=== PATIENT | female | born 1940 | race Caucasian/White ===

== ENCOUNTER 2016-08-26 14:32 | Inpatient (IN) ==
[~2016-08-26 14:32] MED LIST: *HR* Etomidate 40 MG/20 ML VIAL IVP ONE; *HR* Succinylcholine 200 MG/10 ML VIAL IVP ONE
[2016-08-26] MEDS ORDERED: *HR* EPINEPHrine 1 MG/ML AMPUL ONE ×2 (15:31→15:43)
[2016-08-26] MEDS ORDERED: methylPREDNISolone 125 MG/2 ML VIAL ONE (15:35)
[2016-08-26] MEDS ORDERED: Famotidine 20 MG/2 ML VIAL IVP ONE (15:37)
[2016-08-26] MEDS ORDERED: Propofol 500 MG/50 ML INFUS..BTL ONE (15:55)
[2016-08-26] MEDS ORDERED: *HR* Vecuronium 10 MG VIAL ONE (16:14)
--- NOTE | 2016-08-26 16:40 | Emergency Department Note ---
Disposition Clinical Impression: Tongue swelling, Required emergent intubation Angioedema Qualifiers: Encounter type: initial encounter Qualified Code(s): T78.3XXA - Angioneurotic edema, initial encounter HTN (hypertension) Qualifiers: Hypertension type: essential hypertension Qualified Code(s): I10 - Essential ( primary) hypertension CHF (congestive heart failure) Qualifiers: Congestive heart failure type: systolic Congestive heart failure chronicity: chronic Qualified Code(s): I50.22 - Chronic systolic (congestive) heart failure CAD (coronary artery disease) Qualifiers: Coronary Disease-Associated Artery/Lesion type: unspecified vessel or lesion type [place] vs. transplanted heart: [place] heart Associated angina: angina presence unspecified Qualified Code(s): I25.10 - Atherosclerotic heart disease of [place] coronary artery without angina pectoris T2DM (type 2 diabetes mellitus) Qualifiers: Diabetes mellitus complication status: with unspecified complications Diabetes mellitus nursing home insulin use: without rat exterminator use Qualified Code(s): E11.8 - Type 2 diabetes mellitus with unspecified complications Disposition: Admitted As Inpatient Condition: Serious Time of Disposition: 18:32 Allergic Reaction HPI - General Chief complaint: ED Allergic Reaction Stated complaint: Tounge Swollen "Retaining Water" Time Seen by Provider: 08/26/16 16:18 Source: patient, family Mode of arrival: wheelchair Limitations: no limitations Nursing Notes Reviewed: Yes Vital Signs Reviewed: Yes - History of Present Illness HPI Narrative: Pt is a 75 yo wf, brought to the ER by her for facial and tongue swelling which began today. Pt was brought to a room from triage by WC, and I was called to bedside on pt's arrival due to tongue swelling. Upon entering the room, pt was sitting up, awake and alert, with her tongue significantly swollen and protruding from her mouth, and drooling. Pt with no resp distress, stable VS , and 100% RA pulse ox. Pt with difficulty talking due to severity of tongue swelling, and difficult to understand. reported that shortly after waking this am, pt with swelling to both upper and lower lips. Pt denies any known allergies, no prior hx of anaphylaxis/angioedema. Reviewed med list and pt not taking an diane inhibitor. 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 Pt denies any exposure to chemicals, or new exposures of any kind. Pt denies any difficulty swallowing , stating that she is drooling because her tongue is so swollen that see is unable to close her mouth. Pt with no wheezing/stridor, no rash/skin changes. No other edema noted to head/face/neck. No brawny edema to ant neck. No F/C, no N/V/D. No abd pain/cramping. No syncope/near syncope. Pt denies any other complaints on arrival. - Related Data Home Medications Medication Instructions Recorded Confirmed Albuterol Neb [Proventil Neb] 2.5 mg IH TID 03/29/15 08/26/16 Albuterol Sulfate [Albuterol 2 puff IH Q4HR PRN 03/29/15 08/26/16 Inhaler] Atorvastatin Calcium [Lipitor] 20 mg PO HS 03/29/15 08/26/16 Lisinopril [Zestril] 5 mg PO DAILY 03/29/15 08/26/16 [place]-3S/Dha/Epa/Fish Oil [Fish 1 cap PO DAILY 03/29/15 08/26/16 Oil 1,200 mg Softgel] Omeprazole [PriLOSEC] 40 mg PO DAILY 03/29/15 08/26/16 TraMADol [Ultram] 50 mg PO TID PRN 03/29/15 08/26/16 Carvedilol [Coreg] 25 mg PO BID 08/26/16 08/26/16 Docusate [Colace] 100 mg PO DAILY PRN 08/26/16 08/26/16 Ferrous Sulfate 325 mg PO BIDWM 08/26/16 08/26/16 Furosemide [Lasix] 40 mg PO DAILY 08/26/16 08/26/16 Melatonin 5 mg PO HS PRN 08/26/16 08/26/16 Nitroglycerin [Nitrostat] 0.4 mg SL Q5M PRN 08/26/16 08/26/16 Oxygen 2 l NS AD 08/26/16 08/26/16 Potassium Chloride [K-Tab ER] 20 meq PO BID 08/26/16 08/26/16 Sacubitril/Valsartan [Entresto 24 1 each PO BID 08/26/16 08/26/16 mg-26 mg Tablet] Spironolactone [Aldactone] 12.5 mg PO DAILY 08/26/16 08/26/16 Previous Rx's Medication Instructions Recorded Aspirin Enteric Coated [Aspirin EC] 81 mg PO DAILY 30 Days 03/30/15 Allergies Allergy/AdvReac Type Severity Reaction Status Date / Time DIANE Inhibitors Allergy Severe Swelling Verified 08/27/16 07:09 of Lip/Tongue/Throat ARB-Angiotensin Receptor Allergy Severe Swelling Verified 08/27/16 07:09 Antagonist of Lip/Tongue/Throat plastic tape Allergy See Uncoded 08/26/16 15:23 Comments All systems ED: reviewed and negative except as stated. Constitutional: Reports: as per HPI. Denies: fever, chills, weakness Eyes: Reports: as per HPI. Denies: vision change ENT ED: Reports: as per HPI, other (Lip and tongue edema and swelling). Denies : ear pain, throat pain, dental pain, congestion Cardiovascular: Reports: as per HPI. Denies: chest pain, palpitations, dyspnea on exertion, edema, syncope Respiratory: Reports: as per HPI, dyspnea. Denies: cough, wheezes, stridor, sputum production Gastrointestinal: Reports: as per HPI. Denies: abdominal pain, nausea, vomiting , diarrhea Genitourinary: Reports: as per HPI. Denies: urgency, dysuria Musculoskeletal: Reports: as per HPI. Denies: back pain, neck pain Integumentary: Reports: as per HPI. Denies: rash, pruritus Neurological: Reports: as per HPI. Denies: headache, weakness, numbness, paresthesias, vertigo Psychiatric: Reports: as per HPI. Denies: anxiety, depression Endocrine: Reports: as per HPI. Denies: fatigue Hematological/Lymphatic: Reports: as per HPI. Denies: easy bleeding, easy bruising Allergic/Immunologic: Reports: as per HPI, facial swelling. Denies: urticaria, itchy eyes Past Medical History - Past Medical History Medical history: Reports: arthritis, cancer, CHF, COPD, CVA, diabetes, hyperlipidemia, hypertension, myocardial infarction, other Surgical history: Reports: appendectomy, cholecystectomy Psychiatric history: Reports: depression JOIST SETTER history: Reports: no JOIST SETTER history - Social History Smoking Status: Never smoker Smokeless Tobacco Status: No Alcohol use: Reports: none Drug use: Reports: none Physical Exam - General Limitations: no limitations General appearance: alert, in distress, other (Patient arrives from triage in a wheelchair with tongue protruding from mouth due to significant swelling and drooling) - Head Head exam: atraumatic, normocephalic - Eye Eye exam: Present: normal appearance, PERRL, EOMI. Absent: conjunctival injection, periorbital swelling - ENT ENT exam: mucous membranes moist, TM's normal bilaterally, normal external ear exam (Patient with), other (Patient with significant tongue swelling and significant edema to the floor of the mouth, very thickened speech due to swelling of tongue and patient drooling having trouble controlling secretions. No other facial edema is appreciated no swelling of lips, no periorbital edema no facial swelling; cannot visualize uvula on exam and appears nonedematous, no stridor) - Neck Neck exam: Present: normal inspection, trachea midline, other (No brawny edema appreciated). Absent: tenderness, lymphadenopathy - Chest Chest inspection: Present: normal inspection, symmetric chest wall rise. Absent : tenderness, rash - Respiratory Respiratory exam: Present: normal lung sounds bilaterally. Absent: respiratory distress, wheezes, stridor, accessory muscle use - Cardiovascular Cardiovascular exam: Present: regular rate, normal rhythm, normal heart sounds - Abdominal Exam Abdominal exam: Present: soft, Non-Tender, normal bowel sounds. Absent: distention - Rectal Exam Rectal exam: Present: deferred - Extremities Exam Extremities exam: Present: normal inspection, full ROM, normal capillary refill , pedal edema. Absent: tenderness - Back Exam Back exam: Present: normal inspection, full ROM. Absent: tenderness - Neurological Exam Neurological exam: Present: alert, oriented X3, CN II-XII intact, reflexes normal. Absent: motor sensory deficit - Psychiatric Psychiatric exam: Present: normal affect, normal mood - Skin Skin exam: Present: warm, dry. Absent: rash, diaphoresis, erythema, pallor Course Course Narrative: I, Primo Wynn, did not obtain H&P from patient. I performed intubation and OG placement. See procedure section for details. Shortly after arrival and initial assessment, I decided that we would need to intubate the patient to protect her airway. Pt was placed on monitor, pulse ox, supple O2 started. 2 lg bore PIV's established. We quickly set up for intubation , with glidescope at bedside, cric kit setup for backup. We notified anesthesia , and requested their backup. Notified ENT, and consulted them to see pt. Spoke in detail with pt and about urgent need for intubation. Both agreed with the procedure for airway protection. was escorted to family room for intubation. Prior to intubation, pt given subcut epi x 4 q 5 min, IV solumedrol, benadryl, pepcid. Pt with no improvement, actually gradually worsening tongue edema. Anesthesia at bedside for intubation. Pt pre-oxygenated, performed rapid sequence intubation using etomidate and succinylcholine. Achieved adequate sedation. Using the glidescope, I personally supervised Dr. Wynn, ER resident, perform orotracheal intubation without difficulty. No complications during procedure. Tube position confirmed with ETCO2, fogging of tube, and PCXR. Clear breath sounds bilaterally following intubation. OG tube placed. Pt remained hemodynamically stable throughout intubation and following intubation. Propofol was ordered for sedation. Labs drawn and sent. EKG obtained. IV fluids running. brought back to be with in room. Spoke to ICU, who accepted pt for admission. Discussed case with attending. Initial vent settings in ED, ABG ordered. ICU attending, while assessing pt in ED, adjusted vent settings from ABG results. Pt transported to ICU for ongoing care and mgmt. Vital Signs Temperature 97.5 F L 08/26/16 15:18 Pulse Rate 68 08/26/16 15:18 Respiratory Rate 18 08/26/16 15:18 Blood Pressure 116/62 08/26/16 15:18 O2 Sat by Pulse Oximetry 98 08/26/16 15:18 Temperature 98.5 F 08/28/16 12:13 Pulse Rate 60 08/28/16 14:00 Respiratory Rate 18 08/28/16 14:00 Blood Pressure 146/73 08/28/16 14:00 O2 Sat by Pulse Oximetry 98 08/28/16 14:00 Oxygen Delivery Oxygen Delivery Ventilator Procedures - Intubation Time out performed: Yes sedative: Etomidate Mg Given: 30 paralytic: Succinylcholine Mg Given: 100 Laryngoscope: fiber optic video scope ET Tube Size: 7 ET Tube Uncuffed: No Tube Secured Depth (cm): 20 (cm ) Tube Secured Location: lips Tube Placement Confirmation: visualized tube passing through cords Patient Tolerated Procedure: well Additional Comments: Patient had mildly decreased breath sounds on left compared to right. CXR obtained and showed intubation of right mainstem. Tube was pulled back to 19cm at the lip and CXR obtained again and showed proper placement above gianluca, equal aeration bilaterally, o2 sat 100%. - Primo Wynn. Allergic Reaction - [facility] Narrative Medical decision making narrative: Pt is a 75 yo wf, brought by to ED for tongue swelling. Due to severity of edema, and concern for airway compromise, pt was electively intubated in ED shortly after arrival to secure airway. Pt consented to procedure. Procedure performed without complication. Pt hemodynamically stable throughout ED course, and transported to ICU pending remaining lab results. D/W ICU attending, consulted ENT from ED. Consulted anesthesia for backup during intubation. Pt with angioedema of unknown cause, with no prior hx of allergic reactions. - Differential Diagnosis Differential Diagnosis: Likely: allergic reaction, angioedema - Medical Records Medical records reviewed: Yes I reviewed the patient's medical records. - Lab Data Lab results reviewed: Yes I reviewed the patient's lab results. Lab results narrative: Not all labs resulted before pt transported to ICU. Result diagrams: 08/28/16 03:15 08/28/16 03:15 Lab Results 08/26/16 08/26/16 08/26/16 Range/Units 16:45 16:45 16:45 WBC 7.7 (4.3-11.1) K/mcL RBC 3.73 L (3.82-4.97) M/mcL Hgb 10.4 L (11.5-15.4) g/dL Hct 32.1 L (35.3-44.9) % MCV 86.1 (83.0-100.0) fL MCH 27.9 L (28.0-33.3) pg MCHC 32.4 (31.6-35.5) g/dL RDW 19.1 H (11.5-14.5) % Plt Count 320 (140-400) K/mcL MPV 9.6 (9.4-12.4) fL Immature Gran % 0.3 (0-4) % Seg Neutrophils % 55.1 % Lymphocytes % 32.1 % Monocytes % 7.7 % Eosinophils % 4.0 % Basophils % 0.8 % Neutrophils # 4.2 (1.6-8.9) K/mcL Lymphocytes # 2.5 (0.6-4.6) K/mcL Monocytes # 0.6 (0.0-1.3) K/mcL Eosinophils # 0.3 (0.0-0.6) K/mcL Basophils # 0.1 (0.0-0.2) K/mcL PT 12.7 H (9.4-12.1) Seconds INR 1.2 Sodium 140 (136-145) mEq/L Potassium 3.5 (3.5-4.5) mEq/L Chloride 109 (98-109) mEq/L Carbon Dioxide 21 (19-29) mEq/L BUN 30 H (7-20) mg/dL Creatinine 1.08 (0.57-1.11) mg/dL Est GFR ( Amer) 60 (> 60) Est GFR (Non-Af Amer) 49 L (> 60) BUN/Creatinine Ratio 28 H (6-26) Glucose 152 H (70-99) mg/dL Calculated Osmolality 299 (280-300) Calcium 9.3 (8.6-10.8) mg/dL Magnesium 1.7 (1.6-2.6) mg/dL Total Bilirubin 0.6 (0.2-1.2) mg/dL AST 20 (5-34) Units/L ALT 13 (0-55) Units/L Alkaline Phosphatase 80 (38-126) Units/L Troponin I (0-0.03) ng/mL Serum Total Protein 7.5 (6.0-8.3) g/dL Albumin 3.5 (3.5-5.0) g/dL Globulin 4.0 H (2.4-3.5) g/dL Albumin/Globulin Ratio 0.9 L (1.1-2.2) Urine Color (Yellow) Urine Clarity (Clear) Urine pH (5.0-8.0) pH Units Ur Specific [place] (1.010-1.025) Urine Protein (Neg-Trace) mg/dL Urine Glucose (UA) (Normal) mg/dL Urine Ketones (Negative) mg/dL Urine Blood (Negative) Urine Nitrite (Negative) Urine Bilirubin (Negative) Urine Urobilinogen (Normal) mg/dL Ur Leukocyte Esterase (Negative) 08/26/16 08/26/16 Range/Units 16:45 16:50 WBC (4.3-11.1) K/mcL RBC (3.82-4.97) M/mcL Hgb (11.5-15.4) g/dL Hct (35.3-44.9) % MCV (83.0-100.0) fL MCH (28.0-33.3) pg MCHC (31.6-35.5) g/dL RDW (11.5-14.5) % Plt Count (140-400) K/mcL MPV (9.4-12.4) fL Immature Gran % (0-4) % Seg Neutrophils % % Lymphocytes % % Monocytes % % Eosinophils % % Basophils % % Neutrophils # (1.6-8.9) K/mcL Lymphocytes # (0.6-4.6) K/mcL Monocytes # (0.0-1.3) K/mcL Eosinophils # (0.0-0.6) K/mcL Basophils # (0.0-0.2) K/mcL PT (9.4-12.1) Seconds INR Sodium (136-145) mEq/L Potassium (3.5-4.5) mEq/L Chloride (98-109) mEq/L Carbon Dioxide (19-29) mEq/L BUN (7-20) mg/dL Creatinine (0.57-1.11) mg/dL Est GFR ( Amer) (> 60) Est GFR (Non-Af Amer) (> 60) BUN/Creatinine Ratio (6-26) Glucose (70-99) mg/dL Calculated Osmolality (280-300) Calcium (8.6-10.8) mg/dL Magnesium (1.6-2.6) mg/dL Total Bilirubin (0.2-1.2) mg/dL AST (5-34) Units/L ALT (0-55) Units/L Alkaline Phosphatase (38-126) Units/L Troponin I 0.02 (0-0.03) ng/mL Serum Total Protein (6.0-8.3) g/dL Albumin (3.5-5.0) g/dL Globulin (2.4-3.5) g/dL Albumin/Globulin Ratio (1.1-2.2) Urine Color Yellow (Yellow) Urine Clarity Clear (Clear) Urine pH 5.5 (5.0-8.0) pH Units Ur Specific [place] 1.010 (1.010-1.025) Urine Protein Negative (Neg-Trace) mg/dL Urine Glucose (UA) Normal (Normal) mg/dL Urine Ketones Negative (Negative) mg/dL Urine Blood Negative (Negative) Urine Nitrite Negative (Negative) Urine Bilirubin Negative (Negative) Urine Urobilinogen Normal (Normal) mg/dL Ur Leukocyte Esterase Negative (Negative) - Radiology Data Radiology results reviewed: Yes I reviewed the patient's radiology results. ETT placement in good position. Critical Care Time Critical Care Time: Yes Total Critical Care Time: 60 Attestation: The high probability of a clinically significant, sudden or life threatening deterioration of the [resp] system(s) required my full and direct attention, intervention and personal management. The aggregate critical care time was [60] minutes. This time is in addition to time spent performing reported procedures but includes the following: [X] Data Review and interpretation [X] Patient assessment and monitoring of vital signs [X] Documentation [X] Medication orders and management Attestation Statement - Attestation Attestation: I personally interviewed and examined this patient and my medical decision- making was reviewed with the ED Resident Physician, Dr. Wynn. I agree with the documented findings, disposition and treatment plan as described except to the extent set forth below. I personally supervised Dr. Wynn perform the RSI of pt. I otherwise managed and cared for pt as documented.
[2016-08-26] MEDS ORDERED: *HR* EPINEPHrine 0.3 MG/0.3 ML (PEN) SQ ONE (16:54)
[2016-08-26 16:55] LABS: Basophils # 0.1 K/mcL (0.0-0.2); Basophils % 0.8 %; Eosinophils # 0.3 K/mcL (0.0-0.6); Hematocrit 32.1 % (35.3-44.9); Hemoglobin 10.4 g/dL (11.5-15.4); Immature Granulocytes % 0.3 % (0-4); Lymphocytes # 2.5 K/mcL (0.6-4.6); Lymphocytes % 32.1 %; Mean Corpuscular HGB Conc 32.4 g/dL (31.6-35.5); Mean Corpuscular Hemoglobin 27.9 pg (28.0-33.3); Mean Corpuscular Volume 86.1 fL (83.0-100.0); Mean Platelet Volume 9.6 fL (9.4-12.4); Monocytes # 0.6 K/mcL (0.0-1.3); Monocytes % 7.7 %; Neutrophils # 4.2 K/mcL (1.6-8.9); Platelet Count 320 K/mcL (140-400); Red Blood Count 3.73 M/mcL (3.82-4.97); Red Cell Distribution Width 19.1 % (11.5-14.5); Segmented Neutrophils % 55.1 %
[2016-08-26] MEDS ORDERED: *HR* Vecuronium 10 MG VIAL IVP ONE (16:56)
[2016-08-26] MEDS ORDERED: methylPREDNISolone 125 MG/2 ML VIAL IVP ONE (16:56)
[2016-08-26 17:02] LABS: INR 1.2; Prothrombin Time 12.7 Seconds (9.4-12.1)
[2016-08-26 17:04] LABS: Bilirubin,Urine Negative (Negative); Blood,Urine Negative (Negative); Clarity,Urine Clear (Clear); Color,Urine Yellow (Yellow); Glucose,Urine (UA) Normal (Normal); Ketones,Urine Negative (Negative); Leukocyte Esterase,Urine Negative (Negative); Nitrite,Urine Negative (Negative); PH,Urine 5.5 pH Units (5.0-8.0); Protein,Urine Negative (Neg-Trace); Urobilinogen,Urine Normal (Normal)
[2016-08-26 17:11] LABS: Albumin 3.5 g/dL (3.5-5.0); Albumin/Globulin Ratio 0.9 (1.1-2.2); Bilirubin,Total 0.6 mg/dL (0.2-1.2); Calcium 9.3 mg/dL (8.6-10.8); Potassium 3.5 mEq/L (3.5-4.5); Total Protein 7.5 g/dL (6.0-8.3)
[2016-08-26] MEDS ORDERED: Lacri-Lube 3.5 GM TUBE BOTH EYES PRN (17:32)
[2016-08-26] MEDS ORDERED: Calcium Gluconate 1,000 MG in D5% in Water 100 ML IVPB PRN (17:32)
--- NOTE | 2016-08-26 17:32 | Pulmonology History & Physical ---
<Sherry Pardo - Last Filed: 08/26/16 19:03> Date of Encounter: 08/26/16 Time of Encounter: 17:32 Assessment and Plan (1) Angioedema Current visit: Yes Status: Acute Patient presented to the ED with acute swelling of tongue, lips and mouth. She was intubated in the ED for airway protection. On review of medications, patient has been taking either lisinopril or Entresto for blood pressure control. Patient has no personal history of allergeis or angioedema. She is now intubated and sedated. ENT has been consulted and allergy will be called in the morning. - NO DIANE INHIBITOR OR ARB EVER AGAIN - Keep patient sedated and restrained to prevent displacement of the tube - Will send labs incluidng C1q, C1 esterase and C4 complement - Solu-medrol 80mg every 8 hours - Benadryl BID - Pepcid daily - Transfuse 2 units FFP now - Consult placed to ENT - Consult placed to Allergy/Immunology Qualifiers: Encounter type: initial encounter Qualified Code(s): T78.3XXA - Angioneurotic edema, initial encounter (2) Sick sinus syndrome Current visit: Yes Status: Acute Patient with history of sick sinus syndrome with BV-ICD in place for CHF. Heart rate appropriate thus far. - partition notcher (3) HTN (hypertension) Current visit: Yes Status: Acute History of HTN on lisinopril/Entresto and carvedilol. - Continue home dose caredilol Qualifiers: Hypertension type: essential hypertension Qualified Code(s): I10 - Essential (primary) hypertension (4) CAD (coronary artery disease) Current visit: Yes Status: Acute History of CAD s/p CABG - EKG and monitor troponins - though troponin is expected to be elevated due to epinephrine. - Cardiac monitoring Qualifiers: Coronary Disease-Associated Artery/Lesion type: unspecified vessel or lesion type [place] vs. transplanted heart: [place] heart Associated angina: angina presence unspecified Qualified Code(s): I25.10 - Atherosclerotic heart disease of [place] coronary artery without angina pectoris (5) CHF (congestive heart failure) Current visit: Yes Status: Acute Reported history of CHF with BV-ICD in place - Last ECHO 04/27/2015 - EF 35-40%, atypical septal motion, indeterminate diastolic function, mild TR, no pulmonary hypertension - Continue home medications and monitor fluid status Qualifiers: Congestive heart failure type: systolic Congestive heart failure chronicity : chronic Qualified Code(s): I50.22 - Chronic systolic (congestive) heart failure (6) T2DM (type 2 diabetes mellitus) Current visit: Yes Status: Acute History of T2DM not on any home medications. - Monitor glucose - Sliding scale insulin Qualifiers: Diabetes mellitus complication status: with unspecified complications Diabetes mellitus terminal operations supervisor insulin use: without terminal operations supervisor use Qualified Code( s): E11.8 - Type 2 diabetes mellitus with unspecified complications (7) DVT prophylaxis Current visit: Yes Status: Acute Heparin Neuro: Intubated and sedated with propofol and fentanyl. Keep sedated and restrained to prevent displacement of tube. Pulm: Intubated due to airway obsturction. Vent: VC+ TV400, R16, FiO2 50% and PEEP of 5.0 Cards: Hx of CAD with CABG, CHF and sick sinus syndrome. Continue home meds EXCEPT LISINOPRIL OR ENTRESTO. Cardiac monitoring FEN-GI: OG tube in place. NPO except meds down tube. Fluids at 40mls/hr. Protonix ppx Renal: Isaac in place. Monitor UOP ID: No acute concerns at this time Heme/Onc: Heparin for DVT ppx Endo: Monitor glucose. SSI Immuno: Severe angioedema. Transfuse 2 units FFP. Steroids, Benadryl, Pepcid. Consult to ENT and Allergy/Immunology. Follow labs- C1q, C4, C1 esterase. Keep patient intubated and sedated Skin: skin care per ICU protocol Code: Full code History of Present Illness Chief complaint: Angioedema HPI: Ms. Pardo is a 75 year old female with PMH of sick sinus syndrome s/p AICD placement, GERD, HTN, CAD s/p CAGB, CVA, CHF, and T2DM presented to the EM with lip and tongue swelling. Per family, this morning patient woke up with upper and lower lip swelling. initially thought patient was having a stroke before they noticed the swelling because she was slurring words. Patient took some Benadryl but noticed that the swelling kept getting worse. At lunchtime she noticed that the swelling in her lips was worse but her tongue was starting to swell. By the time she arrived in the ED, patient was unable to talk due to the swelling and was drooling. Patient was intubated emergently in the ED. Per ED attending, the swelling was primarily the floor of her mouth and her tongue but her posterior pharynx was not swollen. Patient received 4mg of subcutaneous epinephrine, 125mg solu-medrol, 20mg pepcid and 50mg Benadryl. Despite this, patient's tongue continued to swell and she was admitted to the ICU. Per patient , there were no other symptoms. He denies ALAN, difficulty breathing, nausea/vomiting, or any rash. Patient was taking lisinopril and was recently switched to entresto. However, patient was having difficulty affording the entresto, so while trying to work out payment she was given extra lisinopril to take. is not sure if she took lisinopril or the Entresto this morning. On exam, patient is intubated and sedated with propofol. She has significant tongue swelling cause marked protrusion. Lungs are clear to auscultation. Remainder of physical exam benign. Past Med Surg Social Fam HX - Past Medical History Medical history: arthritis, cancer, CHF, COPD, CVA, diabetes, hyperlipidemia, hypertension, myocardial infarction, other Psychiatric history: depression - Past Surgical History Surgical History: appendectomy, cholecystectomy - Social History Smoking Status: Never smoker Smokeless Tobacco Status: No Alcohol use: none Drug use: none Medications and Allergies Albuterol Neb [Proventil Neb] 2.5 mg IH TID 03/29/15 [History] Albuterol Sulfate [Albuterol Inhaler] 2 puff IH Q4HR PRN 03/29/15 [History] Atorvastatin Calcium [Lipitor] 20 mg PO HS 03/29/15 [History] Lisinopril [Zestril] 5 mg PO DAILY 03/29/15 [History] [place]-3S/Dha/Epa/Fish Oil [Fish Oil 1,200 mg Softgel] 1 cap PO DAILY 03/29/15 [ History] Omeprazole [PriLOSEC] 40 mg PO DAILY 03/29/15 [History] TraMADol [Ultram] 50 mg PO TID PRN 03/29/15 [History] Aspirin Enteric Coated [Aspirin EC] 81 mg PO DAILY 30 Days 03/30/15 [Rx] Carvedilol [Coreg] 25 mg PO BID 08/26/16 [History] Docusate [Colace] 100 mg PO DAILY PRN 08/26/16 [History] Ferrous Sulfate 325 mg PO BIDWM 08/26/16 [History] Furosemide [Lasix] 40 mg PO DAILY 08/26/16 [History] Melatonin 5 mg PO HS PRN 08/26/16 [History] Nitroglycerin [Nitrostat] 0.4 mg SL Q5M PRN 08/26/16 [History] Oxygen 2 l NS AD 08/26/16 [History] Potassium Chloride [K-Tab ER] 20 meq PO BID 08/26/16 [History] Sacubitril/Valsartan [Entresto 24 mg-26 mg Tablet] 1 each PO BID 08/26/16 [ History] Spironolactone [Aldactone] 12.5 mg PO DAILY 08/26/16 [History] Allergies plastic tape Allergy (Uncoded 08/26/16 15:23) See Comments ROS unobtainable: due to endotracheal tube, other (limited ROS from family) All Systems: A 10-system review of systems was performed and is negative for pertinent findings except as documented above in the HPI. - EENT Nose, mouth and throat: tongue swelling - Cardiovascular Cardiovascular: no chest pain - Respiratory Respiratory: no cough, no dyspnea - Gastrointestinal Gastrointestinal: no nausea, no vomiting - Integumentary Integumentary: no rash - Neurological Neurological: abnormal speech - Allergic/Immunologic Allergic/Immunologic: tongue swelling, lip swelling Physical Examination Vital Signs: Vital Signs, Last 4 Hours Temp Pulse Resp BP Pulse Ox 08/26/16 16:50 74 12 144/75 100 08/26/16 16:00 70 14 163/120 99 08/26/16 15:18 97.5 F L 68 18 116/62 98 General appearance: other (Intubated and sedated) ENT: other (marked macroglossia, ET tube in place) Effort: normal Auscultation: bilateral: clear Gastrointestinal: soft, non-tender, non-distended Integumentary: other (Marked angioedema) Extremities: no cyanosis, no edema unable to assess due to mental status Results - Laboratory Findings CBC and BMP: 08/26/16 16:45 08/26/16 16:45 PT/INR, D-dimer PT 12.7 Seconds (9.4-12.1) H 08/26/16 16:45 Abnormal lab findings: Abnormal lab results RBC 3.73 M/mcL (3.82-4.97) L 08/26/16 16:45 Hgb 10.4 g/dL (11.5-15.4) L 08/26/16 16:45 Hct 32.1 % (35.3-44.9) L 08/26/16 16:45 MCH 27.9 pg (28.0-33.3) L 08/26/16 16:45 RDW 19.1 % (11.5-14.5) H 08/26/16 16:45 PT 12.7 Seconds (9.4-12.1) H 08/26/16 16:45 BUN 30 mg/dL (7-20) H 08/26/16 16:45 Est GFR (Non-Af Amer) 49 (> 60) L 08/26/16 16:45 BUN/Creatinine Ratio 28 (6-26) H 08/26/16 16:45 Glucose 152 mg/dL (70-99) H 08/26/16 16:45 Globulin 4.0 g/dL (2.4-3.5) H 08/26/16 16:45 Albumin/Globulin Ratio 0.9 (1.1-2.2) L 08/26/16 16:45 <Matt Saucedo W - Last Filed: 08/26/16 19:21> Date of Encounter: 08/26/16 History of Present Illness HPI: Ms. Pardo is a 75 year old female All Systems: A 10-system review of systems was performed and is negative for pertinent findings except as documented above in the HPI. Physical Examination Vital Signs: Vital Signs, Last 4 Hours Temp Pulse Resp BP Pulse Ox 08/26/16 18:38 97.7 F 60 16 127/78 08/26/16 18:22 97.7 F 60 20 127/78 08/26/16 18:21 60 08/26/16 17:55 17 100 08/26/16 17:40 12 166/88 Results - Laboratory Findings CBC and BMP: 08/26/16 16:45 08/26/16 16:45 ABG ABG pH 7.37 pH Units (7.32-7.45) 08/26/16 18:15 ABG pCO2 39 mmHg (35-45) 08/26/16 18:15 ABG pO2 190 mmHg (85-104) H 08/26/16 18:15 ABG O2 Saturation 100 % (95-98) H 08/26/16 18:15 PT/INR, D-dimer PT 12.7 Seconds (9.4-12.1) H 08/26/16 16:45 Abnormal lab findings: Abnormal lab results RBC 3.73 M/mcL (3.82-4.97) L 08/26/16 16:45 Hgb 10.4 g/dL (11.5-15.4) L 08/26/16 16:45 Hct 32.1 % (35.3-44.9) L 08/26/16 16:45 MCH 27.9 pg (28.0-33.3) L 08/26/16 16:45 RDW 19.1 % (11.5-14.5) H 08/26/16 16:45 PT 12.7 Seconds (9.4-12.1) H 08/26/16 16:45 ABG pO2 190 mmHg (85-104) H 08/26/16 18:15 ABG O2 Saturation 100 % (95-98) H 08/26/16 18:15 ABG Base Excess -2.5 mEq/L (-2.0 to 3.0) L 08/26/16 18:15 BUN 30 mg/dL (7-20) H 08/26/16 16:45 Est GFR (Non-Af Amer) 49 (> 60) L 08/26/16 16:45 BUN/Creatinine Ratio 28 (6-26) H 08/26/16 16:45 Glucose 152 mg/dL (70-99) H 08/26/16 16:45 POC Glucose 153 (58-89) H 08/26/16 17:55 Globulin 4.0 g/dL (2.4-3.5) H 08/26/16 16:45 Albumin/Globulin Ratio 0.9 (1.1-2.2) L 08/26/16 16:45 - Attending Attestation I examined this patient and my medical decision-making was reviewed with the ROAD GRADER/PA/Advanced Practice Nurse/Resident Physician. I agree with the documented findings, disposition and treatment plan as described except to the extent set forth below. Patient seen and examined in ED with Housestaff. Neuro/Psych: Deeply sedated on vent. Prior to intubation sedation per report no focal deficit. Will cont deep sedation overnight to avoid self-extubation goal SKAINA 4-5 cont propfol add fentanyl for analgesia. Resp: Intubated for airway mngt. acceptable oxygenation on minimal vent support using approx TV 8cc/kg IBW. History of COPD schedule duonebs every 6 hours. CXR without acute process. Cardio: No evidence of shock. History of HFrEF. cont BB at present. ECG without STEMI. f/u Troponin. GI: Gi prophylaxis given. NPO for now Renal: NO Kris isaac placed cont to monitor output ID: Dorman cultured but highly doubt sepsis. No inidication for empiric antimicrobials HEME/ONC: DVT prophylaxis given. H/H stable no evidence of coagulopathy SKIN: Skin Care per ICU protocol to prevent ulcers Allergy/Immunology: Acute angioedema without urticaria suspect ACEi induced. HOlding med now. H1/H2 blockers given. Cont IV steroids. Stop epinephrine injections. 2U FFP ordered. complement panel ordered. Allergy consult pending availability. ED per conversation spoke to ENT no further recs for airway mngt now intubated. Code: Full; NOK - updated at bedside.
[2016-08-26] MEDS ORDERED: NON-FORMULARY MEDICATION 1 EACH EACH (Oxygen [Oxygen] 2 L) NS SCH (17:45)
[2016-08-26] MEDS ORDERED: D5% in Water 1,000 ML IVC PRN (17:51)
[2016-08-26] MEDS ORDERED: *HR* Dextrose 50 % in Water (Syg) 50 ML SYRINGE IVP PRN (17:51)
[2016-08-26] MEDS ORDERED: Dextrose Gel 15 GM PO PRN ×2 (17:51)
[2016-08-26] MEDS ORDERED: Famotidine 20 MG/2 ML VIAL IVP SCH (18:00)
[2016-08-26] MEDS: FentaNYL (PF) 1,000 MCG in 0.9 % Sodium Chloride 80 ML IVC SCH (18:18)
[2016-08-26 18:30] LABS: ABG Base Excess -2.5 mEq/L (-2.0 to 3.0); ABG HCO3 22.5 mEQ/L (21-27); ABG Oxygen Saturation 100 % (95-98); ABG PCO2 39 mmHg (35-45); ABG PH 7.37 pH Units (7.32-7.45); ABG PO2 190 mmHg (85-104); ABG TCO2 23.7 mEq/L (20-26)
[2016-08-26 18:31] LABS: Blood Gas FiO2 55 %
[2016-08-26 18:39] LABS: Magnesium 1.7 mg/dL (1.6-2.6)
[2016-08-26] MEDS ORDERED: 0.9 % Sodium Chloride 250 ML ONE (20:24)
[2016-08-26] MEDS: 0.9 % Sodium Chloride 1,000 ML IVC SCH (20:27)
[2016-08-26] MEDS: Magnesium Sulfate 2 GM in D5% in Water 100 ML IVPB PRN (20:34)
[2016-08-26] MEDS: Chlorhexidine Rinse 15 ML MOUTHWASH MM SCH (20:38)
[2016-08-26] MEDS: Lacri-Lube 3.5 GM TUBE BOTH EYES SCH (20:43)
[2016-08-26] MEDS ORDERED: 0.9 % Sodium Chloride 1,000 ML IVC ONE ×3 (21:18→23:26)
[2016-08-27] MEDS ORDERED: Piperacillin/Tazobactam 3.375 GM in D5% in Water (Mini-Bag+) 100 ML IVPB ONE (00:01)
[2016-08-27] MEDS ORDERED: Vancomycin 1,000 MG in D5% in Water 250 ML IVPB ONE (00:01)
--- NOTE | 2016-08-27 00:48 | Procedure Note ---
Date of procedure: 08/27/16 Pre-op diagnosis: Hypotension Post-op diagnosis: same Procedure: Verbal consent was obtained from the . The procedure was considered emergent. The right inguinal area was surveyed using ultrasound and the right femoral vein was deemed to be suitable target. Patient was cleaned and draped in the usual sterile fashion. Using ultrasound guidance the introducer needle was introduced in the right femoral vein. Dark red blood was returned. The guidewire was passed into the syringe needle apparatus and into the femoral vein. The syringe and needle removed. Guidewire placement was confirmed to be in the femoral vein using ultrasound. A carolann the skin was made and the dilator was passed over the guidewire and the skin and soft tissues were dilated. The dilator was then removed and the catheter was passed over the guidewire and advanced into the femoral vein. The guidewire was then removed intact. All 3 ports were tested and deemed to draw blood and flushed easily. The catheter was sutured in place. Biopatch and sterile dressing were applied. The right femoral vein and iliac veins with an surveyed again post procedure with the ultrasound and the catheter was seen within the vein. The patient tolerated the procedure well. There are no immediate complications. Dr. Garcia supervised the procedure. Anesthesia: PRITESHA, local Surgeon: Espinoza Bolaños Estimated blood loss (cc): 5 IV fluids (cc): 15 Pathology: none sent Condition: critical Disposition: ICU
[2016-08-27] MEDS: FentaNYL (PF) 1,000 MCG in 0.9 % Sodium Chloride 80 ML IVC SCH ×2 (00:58→18:31)
[2016-08-27] MEDS: methylPREDNISolone 125 MG/2 ML VIAL IVP SCH ×3 (00:59→16:18)
[2016-08-27] MEDS: Lacri-Lube 3.5 GM TUBE BOTH EYES SCH ×6 (01:00→20:05)
[2016-08-27] MEDS: Saliva Stimulant 100ml BOTTLE PO PRN ×5 (01:01→20:25)
[2016-08-27] MEDS: Insulin LISPRO 300 UNITS/3 ML VIAL SQ SCH ×5 (01:09→18:32)
[2016-08-27] MEDS: 0.9 % Sodium Chloride 1,000 ML IVC SCH (02:25)
[2016-08-27] MEDS: EPINEPHrine 1 MG in D5% in Water 250 ML IVC SCH ×2 (02:26→04:10)
[2016-08-27 04:39] LABS: Basophils % 0.2 %; Eosinophils % 0.1 %; Hematocrit 33.6 % (35.3-44.9); Hemoglobin 10.7 g/dL (11.5-15.4); Immature Granulocytes % 0.5 % (0-4); Lymphocytes # 1.4 K/mcL (0.6-4.6); Lymphocytes % 12.1 %; Mean Corpuscular HGB Conc 31.8 g/dL (31.6-35.5); Mean Corpuscular Hemoglobin 28.2 pg (28.0-33.3); Mean Corpuscular Volume 88.4 fL (83.0-100.0); Mean Platelet Volume 9.9 fL (9.4-12.4); Monocytes # 0.2 K/mcL (0.0-1.3); Monocytes % 1.4 %; Neutrophils # 9.7 K/mcL (1.6-8.9); Platelet Count 363 K/mcL (140-400); Red Cell Distribution Width 19.4 % (11.5-14.5); Segmented Neutrophils % 85.7 %
[2016-08-27 04:55] LABS: Albumin 2.9 g/dL (3.5-5.0); Albumin/Globulin Ratio 0.8 (1.1-2.2); Bilirubin,Total 0.5 mg/dL (0.2-1.2); Calcium 8.5 mg/dL (8.6-10.8); Globulin 3.5 g/dL (2.4-3.5); Potassium 4.4 mEq/L (3.5-4.5); Total Protein 6.4 g/dL (6.0-8.3)
--- NOTE | 2016-08-27 05:32 | Event Note ---
Date of Encounter: 08/27/16 Time of Encounter: 00:00 I was alerted by the nurse due to the patient's low blood pressure. When I examined the patient her blood pressure is running low with maps in the 50s. Patient was on propofol and fentanyl for sedation. The propofol was weaned down and eventually turned off and transition to Versed. The patient was also given a total of 2 L bolus. The patient's blood pressure responded for a short amount of time decreased again. There is undetermined at the patient needed vasopressor support to support her blood pressure. A right femoral central line was placed, please see procedure note for further details. Epinephrine was initiated given concern for anaphylactic shock. The patient responded well to epinephrine.
[2016-08-27] MEDS: *HR* Heparin 5,000 UNIT/ML VIAL SQ SCH ×2 (05:45→18:30)
[2016-08-27] MEDS ORDERED: Famotidine 20 MG/2 ML VIAL IVP SCH ×3 (06:00→16:00)
[2016-08-27 06:10] LABS: ABG Base Excess -7.6 mEq/L (-2.0 to 3.0); ABG HCO3 18.2 mEQ/L (21-27); ABG Oxygen Saturation 98 % (95-98); ABG PCO2 37 mmHg (35-45); ABG PO2 119 mmHg (85-104); ABG TCO2 19.3 mEq/L (20-26); Blood Gas FiO2 55 %
[2016-08-27] MEDS: Magnesium Sulfate 2 GM in D5% in Water 100 ML IVPB PRN (06:52)
--- NOTE | 2016-08-27 08:01 | Pulmonology Progress Note ---
<SherylMatt W - Last Filed: 08/27/16 10:21> Date of Encounter: 08/27/16 Objective PUL Vital signs: Last Vital Signs Temp 97.0 F L 08/27/16 08:33 Pulse 60 08/27/16 08:33 Resp 16 08/27/16 08:33 BP 82/43 08/27/16 08:33 Pulse Ox 97 08/27/16 07:34 Ventilator Settings Ventilator Settings: Ventilator Settings, Last 8 Hours Ventilator Mode A/C Ventilator Mode A/C Ventilator Mode A/C Ventilator Mode A/C Ventilator Mode A/C Ventilator Mode A/C Ventilator Mode A/C Ventilator Mode A/C Ventilator Mode A/C Ventilator Mode A/C Ventilator Mode A/C Ventilator Tidal Volume 400 Setting Ventilator Tidal Volume 400 Setting Ventilator Tidal Volume 400 Setting Ventilator Tidal Volume 400 Setting Ventilator Tidal Volume 400 Setting Ventilator Tidal Volume 400 Setting Ventilator Tidal Volume 400 Setting Ventilator Tidal Volume 400 Setting Ventilator Tidal Volume 400 Setting Ventilator Tidal Volume 400 Setting Ventilator Tidal Volume 400 Setting Ventilator Respiratory Rate 16 Setting Ventilator Respiratory Rate 16 Setting Ventilator Respiratory Rate 16 Setting Ventilator Respiratory Rate 16 Setting Ventilator Respiratory Rate 16 Setting Ventilator Respiratory Rate 16 Setting Ventilator Respiratory Rate 16 Setting Ventilator Respiratory Rate 16 Setting Ventilator Respiratory Rate 16 Setting Ventilator Respiratory Rate 16 Setting Ventilator Respiratory Rate 16 Setting Actual Respiratory Rate 16 Actual Respiratory Rate 16 Actual Respiratory Rate 16 Actual Respiratory Rate 16 Actual Respiratory Rate 16 Actual Respiratory Rate 16 Actual Respiratory Rate 16 Actual Respiratory Rate 16 Actual Respiratory Rate 16 Actual Respiratory Rate 16 Positive End Expiratory 5 Pressure Positive End Expiratory 5 Pressure Positive End Expiratory 5 Pressure Positive End Expiratory 5 Pressure Positive End Expiratory 5 Pressure Positive End Expiratory 5 Pressure Positive End Expiratory 5 Pressure Positive End Expiratory 5 Pressure Positive End Expiratory 5 Pressure Positive End Expiratory 5 Pressure Positive End Expiratory 5 Pressure Peak Inspiratory Airway 33 Pressure Peak Inspiratory Airway 32 Pressure Peak Inspiratory Airway 31 Pressure Peak Inspiratory Airway 32 Pressure Peak Inspiratory Airway 32 Pressure Peak Inspiratory Airway 32 Pressure Peak Inspiratory Airway 31 Pressure Peak Inspiratory Airway 30 Pressure Peak Inspiratory Airway 29 Pressure Peak Inspiratory Airway 30 Pressure Results - Laboratory Findings CBC and BMP: 08/27/16 04:20 08/27/16 04:20 ABG ABG pH 7.30 pH Units (7.32-7.45) L 08/27/16 05:51 ABG pCO2 37 mmHg (35-45) 08/27/16 05:51 ABG pO2 119 mmHg (85-104) H 08/27/16 05:51 ABG O2 Saturation 98 % (95-98) 08/27/16 05:51 PT/INR, D-dimer PT 12.7 Seconds (9.4-12.1) H 08/26/16 16:45 Abnormal lab findings: Abnormal lab results WBC 11.3 K/mcL (4.3-11.1) H 08/27/16 04:20 RBC 3.80 M/mcL (3.82-4.97) L 08/27/16 04:20 Hgb 10.7 g/dL (11.5-15.4) L 08/27/16 04:20 Hct 33.6 % (35.3-44.9) L 08/27/16 04:20 RDW 19.4 % (11.5-14.5) H 08/27/16 04:20 Neutrophils # 9.7 K/mcL (1.6-8.9) H 08/27/16 04:20 ESR 54 mm/hr (0-15) H 08/27/16 04:20 PT 12.7 Seconds (9.4-12.1) H 08/26/16 16:45 ABG pH 7.30 pH Units (7.32-7.45) L 08/27/16 05:51 ABG pO2 119 mmHg (85-104) H 08/27/16 05:51 ABG HCO3 18.2 mEQ/L (21-27) L 08/27/16 05:51 ABG Total CO2 19.3 mEq/L (20-26) L 08/27/16 05:51 ABG Base Excess -7.6 mEq/L (-2.0 to 3.0) L 08/27/16 05:51 Chloride 111 mEq/L (98-109) H 08/27/16 04:20 BUN 37 mg/dL (7-20) H 08/27/16 04:20 Creatinine 1.64 mg/dL (0.57-1.11) H D 08/27/16 04:20 Est GFR ( Amer) 37 (> 60) L 08/27/16 04:20 Est GFR (Non-Af Amer) 30 (> 60) L 08/27/16 04:20 Glucose 217 mg/dL (70-99) H 08/27/16 04:20 POC Glucose 201 (58-89) H 08/27/16 05:42 Calculated Osmolality 301 (280-300) H 08/27/16 04:20 Calcium 8.5 mg/dL (8.6-10.8) L 08/27/16 04:20 AST 103 Units/L (5-34) H 08/27/16 04:20 ALT 65 Units/L (0-55) H 08/27/16 04:20 Alkaline Phosphatase 145 Units/L (38-126) H 08/27/16 04:20 Troponin I 0.04 ng/mL (0-0.03) H* 08/26/16 21:58 C-Reactive Protein 15 mg/L (Less than 5) H 08/27/16 04:20 Albumin 2.9 g/dL (3.5-5.0) L 08/27/16 04:20 Albumin/Globulin Ratio 0.8 (1.1-2.2) L 08/27/16 04:20 - Clinical Findings Intake & Output: Intake & Output 08/26/16 08/27/16 08/27/16 23:59 07:59 15:59 Intake Total 1565 / 1565 2756 / 2756 210.6 / 210.6 Output Total 400 / 400 50 / 50 Balance 1165 / 1165 2706 / 2706 210.6 / 210.6 Weight 80.286 kg Consult Discharge Plan - Plan Referrals: Peg Gabriel, [employer]PER[employer]OR [Primary Care Provider] - - Attending Attestation I examined this patient and my medical decision-making was reviewed with the CORPORATE EVENT PLANNER/PA/Advanced Practice Nurse/Resident Physician. I agree with the documented findings, disposition and treatment plan as described except to the extent set forth below. Patient seen and examined at bedside Labs, radiology, chart personally reviewed. All lines examined without evidence of infection. Neuro/Psych: Deeply sedated on vent.PERRL Will cont deep sedation overnight to avoid self-extubation goal SAKINA 4-5 cont versedl and fentanyl for analgesia. Holding sedation holiday for airway risk Resp: Intubated for airway mngt. acceptable oxygenation on minimal vent support using approx TV 8cc/kg IBW. History of COPD schedule duonebs every 6 hours. Cardio: Hypotensive overnight I do not feel this is anaphylaxis but more likely sedation effect or possibly distributive shock s/t Sepsis. Lactate remains normal. She has been empirically started on epinephrine but with sedation decrease dose has been coming down She has also recieved volume resuscitation History of HFrEF. holding BB at present (along with ASA). ECG without STEMI. trop mildy elevated with LIVIA and hypotension. ECHO pending. GI: Gi prophylaxis given. NPO for now Renal: NO Livia isaac placed cont to monitor output which has been middling will cont to monitor ID: Callaway cultured empric antimicrobials started. deescalate at 48hour if clinically improves. HEME/ONC: DVT prophylaxis given. H/H stable no evidence of coagulopathy SKIN: Skin Care per ICU protocol to prevent ulcers Allergy/Immunology: Acute angioedema without urticaria suspect ACEi induced. HOlding med now. H1/H2 blockers given. Cont IV steroids. Allergy consult pending. ENT also consulted to evaluate severity of tongue swelling. Code: Full <Sherry Pardo - Last Filed: 08/27/16 10:53> Date of Encounter: 08/27/16 Time of Encounter: 07:15 Assessment and Plan (1) Angioedema Current Visit: Yes Status: Acute Patient presented to the ED with acute swelling of tongue, lips and mouth. She was intubated in the ED for airway protection. On review of medications, patient has been taking either lisinopril and/or Entresto for blood pressure control. Patient has no personal history of allergeis or angioedema. Unknown family history She is now intubated and sedated. Patient transfused 1 unit FFP last night, will finish second unit this morning. - NO DIANE INHIBITOR OR ARB EVER AGAIN - Keep patient sedated and restrained to prevent displacement of the tube - Labs pending including C1q, C1 esterase and C4 complement - Solu-medrol 80mg every 8 hours - Benadryl BID - Pepcid BID - Start Singular - Finished FFP tranfusion for total of 2 units - Consult placed to ENT - Consult placed to Allergy/Immunology Qualifiers: Encounter type: initial encounter Qualified Code(s): T78.3XXA - Angioneurotic edema, initial encounter (2) Hypotensive episode Current Visit: Yes Status: Acute Overnight, patient became hypotensive with MAP around 50 unresponsive to fluids. Central line was place and patient was started on Epinephrine. Currently on 3mcg/ml epinephrine and maintaining MAP in the 70s. Due to concern for possible sepsis of an infectious etiology, patient was started on callaway cultured and started on emperic antibiotics vanco and zosyn. This is likely secondary to patients acute illness, sedation and patient's underlying chronic issues. - Monitor blood pressure - Wean vasopressors as tolerated - Follow cultures - Continue antibiotics for 48 hours (3) Acute kidney injury Current Visit: Yes Status: Acute Acute kidney injury. Today's creatinine 1.64 compared to 1.08 on admission. This is likely secondary to lower MAP overnight. - Maintain MAP >65 - Monitor kidney function (4) Elevated liver enzymes Current Visit: Yes Status: Acute Acute elevation in liver enzymes likely secondary to hypotension overnight. Anticipate these will improve with improved blood flow. - Maintain MAP >65 (5) Sick sinus syndrome Current Visit: Yes Status: Acute Patient with history of sick sinus syndrome with BV-ICD in place for CHF. Heart rate appropriate thus far, no arrhythmias. - phototypesetting equipment monitor (6) HTN (hypertension) Current Visit: Yes Status: Acute History of HTN on lisinopril/Entresto and carvedilol. Hypotensive this admission currently requiring pressors. Due to angioedema, patient should not be placed back on diane inhibiotrs or ARBs. - Hold home blood pressure medications Qualifiers: Hypertension type: essential hypertension Qualified Code(s): I10 - Essential (primary) hypertension (7) CAD (coronary artery disease) Current Visit: Yes Status: Acute History of CAD s/p CABG. Last troponin 0.04 likely secondary to demand ischemia from her acute illness. - Cardiac monitoring Qualifiers: Coronary Disease-Associated Artery/Lesion type: unspecified vessel or lesion type [place] vs. transplanted heart: [place] heart Associated angina: angina presence unspecified Qualified Code(s): I25.10 - Atherosclerotic heart disease of [place] coronary artery without angina pectoris (8) CHF (congestive heart failure) Current Visit: Yes Status: Chronic Reported history of CHF with BV-ICD in place - Last ECHO 04/27/2015 - EF 35-40%, atypical septal motion, indeterminate diastolic function, mild TR, no pulmonary hypertension - Continue home medications and monitor fluid status - Repeat ECHO for re-evaluation of cardiac function Qualifiers: Congestive heart failure type: systolic Congestive heart failure chronicity : chronic Qualified Code(s): I50.22 - Chronic systolic (congestive) heart failure (9) T2DM (type 2 diabetes mellitus) Current Visit: Yes Status: Chronic History of T2DM not on any home medications. - Monitor glucose - Sliding scale insulin Qualifiers: Diabetes mellitus complication status: with unspecified complications Diabetes mellitus watermaster insulin use: without watermaster use Qualified Code( s): E11.8 - Type 2 diabetes mellitus with unspecified complications (10) DVT prophylaxis Current Visit: Yes Status: Acute Heparin Neuro: Intubated and sedated with propofol and fentanyl. Keep sedated and restrained to prevent displacement of tube. Pulm: Intubated for airway protection. Vent: VC+ TV400, R16, FiO2 50% and PEEP of 5.0. Cards: Hypotensive requiring pressors to maintain MAP. Wean as tolerated. Cardiac monitoring. ECHO pending FEN-GI: OG tube in place. NPO except meds down tube. Protonix ppx Renal: Acute kidney injury. Isaac in place. Monitor UOP. ID: Callaway cultured and started on antibiotics. Do not believe this is an infectious process. Will follow cultures and continue antibitoics for 48 hours Heme/Onc: Recieved 2 units FFP. Heparin for DVT ppx Endo: Monitor glucose. SSI Immuno: Severe angioedema likely secondary to DIANE inhibitor. Transfuse 2 units FFP. Steroids, Benadryl, Pepcid, Singulair. Consult to ENT and Allergy/ Immunology. Follow labs- C1q, C4, C1 esterase. Keep patient intubated and sedated Skin: skin care per ICU protocol Code: Full code Dispo: ICU Subjective Principal diagnosis: Severe angioedema Interval history: Patient admitted to the ICU yesterday evening due to severe angioedema. Patient was keep sedated and restrained to prevent displacement of the ET tube. Overnight, patient's blood pressures decreased with MAPs in the 50s. Despite transitioning propofol to versed and giving a 2L bolus, patient's MAP did not improve. A right femoral line was place and epinephrine was started. Patient was also given empiric antibiotics due to concern for possible infective cause. Currently on epinephrine of 3 mcg/ml and MAP is sustained in the 70s. Patient remains sedated with fentanyl and versed. Vent settings on VC+ - TV400 , RR16, FiO2 55%, PEEP 5.0. Temperature overnight decreased and required warming measures. Heart rate consistently in the 60s with no signs of arrhythmia. Patient seen and examined. Continues to have severe swelling of tongue and lips, maybe slightly improved from admission. Lungs clear to auscultation, no wheezes or rhonchi. Abdomen soft, non-tender. No pedal edema noted. Objective PUL Vital signs: Last Vital Signs Temp 98.4 F 08/27/16 04:00 Pulse 60 08/27/16 06:00 Resp 16 08/27/16 06:00 BP 98/56 08/27/16 06:00 Pulse Ox 97 08/27/16 06:00 General appearance: other (Intubated and sedated) Eyes: nonicteric ENT: other (Marked tongue swelling and protrusion, ET tube in place) Effort: normal Auscultation: bilateral: clear Cardiovascular: regular rate and rhythm Gastrointestinal: soft, non-tender, non-distended Integumentary: other (marked angioedema) Extremities: no cyanosis, no edema, pink and warm unable to assess due to mental status Ventilator Settings Ventilator Settings: Ventilator Settings, Last 8 Hours Ventilator Mode A/C Ventilator Mode A/C Ventilator Mode A/C Ventilator Mode A/C Ventilator Mode A/C Ventilator Mode A/C Ventilator Mode A/C Ventilator Mode A/C Ventilator Mode A/C Ventilator Mode A/C Ventilator Mode A/C Ventilator Mode A/C Ventilator Mode A/C Ventilator Tidal Volume 400 Setting Ventilator Tidal Volume 400 Setting Ventilator Tidal Volume 400 Setting Ventilator Tidal Volume 400 Setting Ventilator Tidal Volume 400 Setting Ventilator Tidal Volume 400 Setting Ventilator Tidal Volume 400 Setting Ventilator Tidal Volume 400 Setting Ventilator Tidal Volume 400 Setting Ventilator Tidal Volume 400 Setting Ventilator Tidal Volume 400 Setting Ventilator Tidal Volume 400 Setting Ventilator Tidal Volume 400 Setting Ventilator Respiratory Rate 16 Setting Ventilator Respiratory Rate 16 Setting Ventilator Respiratory Rate 16 Setting Ventilator Respiratory Rate 16 Setting Ventilator Respiratory Rate 16 Setting Ventilator Respiratory Rate 16 Setting Ventilator Respiratory Rate 16 Setting Ventilator Respiratory Rate 16 Setting Ventilator Respiratory Rate 16 Setting Ventilator Respiratory Rate 16 Setting Ventilator Respiratory Rate 16 Setting Ventilator Respiratory Rate 16 Setting Ventilator Respiratory Rate 16 Setting Actual Respiratory Rate 16 Actual Respiratory Rate 16 Actual Respiratory Rate 16 Actual Respiratory Rate 16 Actual Respiratory Rate 16 Actual Respiratory Rate 16 Actual Respiratory Rate 16 Actual Respiratory Rate 16 Actual Respiratory Rate 16 Actual Respiratory Rate 16 Actual Respiratory Rate 16 Actual Respiratory Rate 16 Positive End Expiratory 5 Pressure Positive End Expiratory 5 Pressure Positive End Expiratory 5 Pressure Positive End Expiratory 5 Pressure Positive End Expiratory 5 Pressure Positive End Expiratory 5 Pressure Positive End Expiratory 5 Pressure Positive End Expiratory 5 Pressure Positive End Expiratory 5 Pressure Positive End Expiratory 5 Pressure Positive End Expiratory 5 Pressure Positive End Expiratory 5 Pressure Positive End Expiratory 5 Pressure Peak Inspiratory Airway 32 Pressure Peak Inspiratory Airway 31 Pressure Peak Inspiratory Airway 32 Pressure Peak Inspiratory Airway 32 Pressure Peak Inspiratory Airway 32 Pressure Peak Inspiratory Airway 31 Pressure Peak Inspiratory Airway 30 Pressure Peak Inspiratory Airway 29 Pressure Peak Inspiratory Airway 30 Pressure Peak Inspiratory Airway 30 Pressure Peak Inspiratory Airway 30 Pressure Peak Inspiratory Airway 31 Pressure Results - Laboratory Findings CBC and BMP: 08/27/16 04:20 08/27/16 04:20 ABG ABG pH 7.30 pH Units (7.32-7.45) L 08/27/16 05:51 ABG pCO2 37 mmHg (35-45) 08/27/16 05:51 ABG pO2 119 mmHg (85-104) H 08/27/16 05:51 ABG O2 Saturation 98 % (95-98) 08/27/16 05:51 PT/INR, D-dimer PT 12.7 Seconds (9.4-12.1) H 08/26/16 16:45 Abnormal lab findings: Abnormal lab results WBC 11.3 K/mcL (4.3-11.1) H 08/27/16 04:20 RBC 3.80 M/mcL (3.82-4.97) L 08/27/16 04:20 Hgb 10.7 g/dL (11.5-15.4) L 08/27/16 04:20 Hct 33.6 % (35.3-44.9) L 08/27/16 04:20 RDW 19.4 % (11.5-14.5) H 08/27/16 04:20 Neutrophils # 9.7 K/mcL (1.6-8.9) H 08/27/16 04:20 ESR 54 mm/hr (0-15) H 08/27/16 04:20 PT 12.7 Seconds (9.4-12.1) H 08/26/16 16:45 ABG pH 7.30 pH Units (7.32-7.45) L 08/27/16 05:51 ABG pO2 119 mmHg (85-104) H 08/27/16 05:51 ABG HCO3 18.2 mEQ/L (21-27) L 08/27/16 05:51 ABG Total CO2 19.3 mEq/L (20-26) L 08/27/16 05:51 ABG Base Excess -7.6 mEq/L (-2.0 to 3.0) L 08/27/16 05:51 Chloride 111 mEq/L (98-109) H 08/27/16 04:20 BUN 37 mg/dL (7-20) H 08/27/16 04:20 Creatinine 1.64 mg/dL (0.57-1.11) H D 08/27/16 04:20 Est GFR ( Amer) 37 (> 60) L 08/27/16 04:20 Est GFR (Non-Af Amer) 30 (> 60) L 08/27/16 04:20 Glucose 217 mg/dL (70-99) H 08/27/16 04:20 POC Glucose 201 (58-89) H 08/27/16 05:42 Calculated Osmolality 301 (280-300) H 08/27/16 04:20 Calcium 8.5 mg/dL (8.6-10.8) L 08/27/16 04:20 AST 103 Units/L (5-34) H 08/27/16 04:20 ALT 65 Units/L (0-55) H 08/27/16 04:20 Alkaline Phosphatase 145 Units/L (38-126) H 08/27/16 04:20 Troponin I 0.04 ng/mL (0-0.03) H* 08/26/16 21:58 C-Reactive Protein 15 mg/L (Less than 5) H 08/27/16 04:20 Albumin 2.9 g/dL (3.5-5.0) L 08/27/16 04:20 Albumin/Globulin Ratio 0.8 (1.1-2.2) L 08/27/16 04:20 - Clinical Findings Intake & Output: Intake & Output 08/26/16 08/26/16 08/27/16 15:59 23:59 07:59 Intake Total 1565 / 1565 2694 / 2694 Output Total 400 / 400 50 / 50 Balance 1165 / 1165 2644 / 2644 Weight 80.286 kg
[2016-08-27] MEDS: Chlorhexidine Rinse 15 ML MOUTHWASH MM SCH ×2 (08:07→20:52)
--- NOTE | 2016-08-27 08:27 | ENT - Consult Note ---
Date of Encounter: 08/27/16 Time of Encounter: 08:25 Assessment and Plan (1) Angioedema Current Visit: Yes Status: Acute Presented on 08/26/16 2/2 lip swelling and difficulty speaking. Intubated in the ED on 08/26/16 d/t continued swelling and impending respiratory compromise. Medication list shows lisinopril and entresto use previously. Agree with discontinuing DIANE/ARBs for life. Agree with continuing steroids and antihistamines. Continued workup as per primary - C1, C4 labs pending. Allergy/Immunology consulted. Continue mechanical ventilation in the setting of angioedema. Patient will require significant decrease in swelling and a cuff leak prior to extubation. Will visit the notion of tracheostomy placement if the patient requires senior care ventilation. Final disposition to be determined after evaluation by Dr. Melo. Qualifiers: Encounter type: initial encounter Qualified Code(s): T78.3XXA - Angioneurotic edema, initial encounter (2) CAD (coronary artery disease) Current Visit: Yes Status: Acute CAD s/p CABG Monitoring as per primary team. Qualifiers: Coronary Disease-Associated Artery/Lesion type: unspecified vessel or lesion type [place] vs. transplanted heart: [place] heart Associated angina: angina presence unspecified Qualified Code(s): I25.10 - Atherosclerotic heart disease of [place] coronary artery without angina pectoris (3) CHF (congestive heart failure) Current Visit: Yes Status: Chronic Previously on Lisinopril and was being switched to Entresto Agree with discontinuing DIANE/ARB for life Qualifiers: Congestive heart failure type: systolic Congestive heart failure chronicity : chronic Qualified Code(s): I50.22 - Chronic systolic (congestive) heart failure (4) T2DM (type 2 diabetes mellitus) Current Visit: Yes Status: Chronic Management as per primary Qualifiers: Diabetes mellitus complication status: with unspecified complications Diabetes mellitus buttermaker insulin use: without senior care use Qualified Code( s): E11.8 - Type 2 diabetes mellitus with unspecified complications (5) DVT prophylaxis Current Visit: Yes Status: Acute History of Present Illness Consult date: 08/27/16 Reason for ENT Consult: other (angioedema) Requesting physician: Anushka Sabillon-White History of present illness: Patient is a 75 year old female pmhx HTN, CAD, CABG, CHF, DM2, Sick sinus syndrome s/p AICD placement who presented to [facility] ED on 08/26/16 d/t lip swelling and change in speech. History is obtained from documentation as the patient is currently intubated and sedated. Reports indicate she presented to the ED d/t lip swelling. She continued to have worsening oral swelling despite medical intervention resulting in intubation in the ED for airway protection. Patient was admitted to the ICU. It appears she was hypotensive in the evening of 08/26/16 with concern for anaphylactic shock. Patient was placed on epi drip. ENT consulted for angioedema. Medications reviewed, it appears she was being transitioned to Entresto for her CHF and may have been taking an DIANE, ARB or both concurrently. Past Med Surg Social Fam HX - Past Medical History Source: old records reviewed Medical history: arthritis, cancer, CHF, COPD, CVA, diabetes, hyperlipidemia, hypertension, myocardial infarction, other Psychiatric history: depression - Past Surgical History Surgical History: appendectomy, cholecystectomy - Social History Smoking Status: Never smoker Smokeless Tobacco Status: No Alcohol use: none Drug use: none Medications and Allergies Albuterol Neb [Proventil Neb] 2.5 mg IH TID 03/29/15 [History] Albuterol Sulfate [Albuterol Inhaler] 2 puff IH Q4HR PRN 03/29/15 [History] Atorvastatin Calcium [Lipitor] 20 mg PO HS 03/29/15 [History] Lisinopril [Zestril] 5 mg PO DAILY 03/29/15 [History] [place]-3S/Dha/Epa/Fish Oil [Fish Oil 1,200 mg Softgel] 1 cap PO DAILY 03/29/15 [ History] Omeprazole [PriLOSEC] 40 mg PO DAILY 03/29/15 [History] TraMADol [Ultram] 50 mg PO TID PRN 03/29/15 [History] Aspirin Enteric Coated [Aspirin EC] 81 mg PO DAILY 30 Days 03/30/15 [Rx] Carvedilol [Coreg] 25 mg PO BID 08/26/16 [History] Docusate [Colace] 100 mg PO DAILY PRN 08/26/16 [History] Ferrous Sulfate 325 mg PO BIDWM 08/26/16 [History] Furosemide [Lasix] 40 mg PO DAILY 08/26/16 [History] Melatonin 5 mg PO HS PRN 08/26/16 [History] Nitroglycerin [Nitrostat] 0.4 mg SL Q5M PRN 08/26/16 [History] Oxygen 2 l NS AD 08/26/16 [History] Potassium Chloride [K-Tab ER] 20 meq PO BID 08/26/16 [History] Sacubitril/Valsartan [Entresto 24 mg-26 mg Tablet] 1 each PO BID 08/26/16 [ History] Spironolactone [Aldactone] 12.5 mg PO DAILY 08/26/16 [History] Allergies DIANE Inhibitors Allergy (Severe, Verified 08/27/16 07:09) Swelling of Lip/Tongue/Throat Severe angioedema 08/26/2016 ARB-Angiotensin Receptor Antagonist Allergy (Severe, Verified 08/27/16 07:09) Swelling of Lip/Tongue/Throat Severe angioedema 08/27/2016 plastic tape Allergy (Uncoded 08/26/16 15:23) See Comments ENT - ROS ROS unobtainable: due to endotracheal tube ENT Exam Initial Vital Signs Temp Pulse Resp BP Pulse Ox 97.5 F L 68 18 116/62 98 08/26/16 15:18 08/26/16 15:18 08/26/16 15:18 08/26/16 15:18 08/26/16 15:18 - General physical appearance well developed, well nourished, no distress, other (intubated and sedated ) - Eyes PERRL - ENT normal pinna, normal nares, Other (Minimal lip swelling. Patient has significant tongue protrusion. The tongue has significant edema as well as moderate sublingual edema. Unable to fully visualize the posterior pharynx 2/2 tongue edema. ET tube in place. ) - Neck no masses, trachea midline, no lymphadectomy, no venous distension - Respiratory normal expansion, clear to auscultation, other (mechanically ventilated ) - Abdomen Abdomen: soft, no rigid, no distended - Integumentary no rash, no abnormal pigmentation - Neurologic other (unable to assess) - Musculoskeletal other (unable to assess) - Psychiatric other (unable to assess) Exam Initial Vital Signs Temp Pulse Resp BP Pulse Ox 97.5 F L 68 18 116/62 98 08/26/16 15:18 08/26/16 15:18 08/26/16 15:18 08/26/16 15:18 08/26/16 15:18 Results - Labs 08/27/16 04:20 08/27/16 04:20 Abnormal lab results WBC 11.3 K/mcL (4.3-11.1) H 08/27/16 04:20 RBC 3.80 M/mcL (3.82-4.97) L 08/27/16 04:20 Hgb 10.7 g/dL (11.5-15.4) L 08/27/16 04:20 Hct 33.6 % (35.3-44.9) L 08/27/16 04:20 RDW 19.4 % (11.5-14.5) H 08/27/16 04:20 Neutrophils # 9.7 K/mcL (1.6-8.9) H 08/27/16 04:20 ESR 54 mm/hr (0-15) H 08/27/16 04:20 PT 12.7 Seconds (9.4-12.1) H 08/26/16 16:45 ABG pH 7.30 pH Units (7.32-7.45) L 08/27/16 05:51 ABG pO2 119 mmHg (85-104) H 08/27/16 05:51 ABG HCO3 18.2 mEQ/L (21-27) L 08/27/16 05:51 ABG Total CO2 19.3 mEq/L (20-26) L 08/27/16 05:51 ABG Base Excess -7.6 mEq/L (-2.0 to 3.0) L 08/27/16 05:51 Chloride 111 mEq/L (98-109) H 08/27/16 04:20 BUN 37 mg/dL (7-20) H 08/27/16 04:20 Creatinine 1.64 mg/dL (0.57-1.11) H D 08/27/16 04:20 Est GFR ( Amer) 37 (> 60) L 08/27/16 04:20 Est GFR (Non-Af Amer) 30 (> 60) L 08/27/16 04:20 Glucose 217 mg/dL (70-99) H 08/27/16 04:20 POC Glucose 201 (58-89) H 08/27/16 05:42 Calculated Osmolality 301 (280-300) H 08/27/16 04:20 Calcium 8.5 mg/dL (8.6-10.8) L 08/27/16 04:20 AST 103 Units/L (5-34) H 08/27/16 04:20 ALT 65 Units/L (0-55) H 08/27/16 04:20 Alkaline Phosphatase 145 Units/L (38-126) H 08/27/16 04:20 Troponin I 0.04 ng/mL (0-0.03) H* 08/26/16 21:58 C-Reactive Protein 15 mg/L (Less than 5) H 08/27/16 04:20 Albumin 2.9 g/dL (3.5-5.0) L 08/27/16 04:20 Albumin/Globulin Ratio 0.8 (1.1-2.2) L 08/27/16 04:20 Diabetes panel 08/27/16 Range/Units 04:20 Sodium 138 (136-145) mEq/L Potassium 4.4 (3.5-4.5) mEq/L Chloride 111 H (98-109) mEq/L Carbon Dioxide 19 (19-29) mEq/L BUN 37 H (7-20) mg/dL Creatinine 1.64 H D (0.57-1.11) mg/dL Glucose 217 H (70-99) mg/dL Calcium 8.5 L (8.6-10.8) mg/dL AST 103 H (5-34) Units/L ALT 65 H (0-55) Units/L Alkaline Phosphatase 145 H (38-126) Units/L Albumin 2.9 L (3.5-5.0) g/dL Calcium panel 08/27/16 Range/Units 04:20 Calcium 8.5 L (8.6-10.8) mg/dL Albumin 2.9 L (3.5-5.0) g/dL Pituitary panel 08/27/16 Range/Units 04:20 Sodium 138 (136-145) mEq/L Potassium 4.4 (3.5-4.5) mEq/L Chloride 111 H (98-109) mEq/L Carbon Dioxide 19 (19-29) mEq/L BUN 37 H (7-20) mg/dL Creatinine 1.64 H D (0.57-1.11) mg/dL Glucose 217 H (70-99) mg/dL Calcium 8.5 L (8.6-10.8) mg/dL Adrenal panel 08/27/16 Range/Units 04:20 Sodium 138 (136-145) mEq/L Potassium 4.4 (3.5-4.5) mEq/L Chloride 111 H (98-109) mEq/L Carbon Dioxide 19 (19-29) mEq/L BUN 37 H (7-20) mg/dL Creatinine 1.64 H D (0.57-1.11) mg/dL Glucose 217 H (70-99) mg/dL Calcium 8.5 L (8.6-10.8) mg/dL Total Bilirubin 0.5 (0.2-1.2) mg/dL AST 103 H (5-34) Units/L ALT 65 H (0-55) Units/L Alkaline Phosphatase 145 H (38-126) Units/L Albumin 2.9 L (3.5-5.0) g/dL All other labs normal. - Imaging Chest x-ray: report reviewed Consult Discharge Plan - Plan Referrals: Peg Gabriel, [employer] [Primary Care Provider] -
[2016-08-27] MEDS ORDERED: 0.9 % Sodium Chloride 250 ML ONE (08:28)
[2016-08-27] MEDS ORDERED: 0.9 % Sodium Chloride 500 ML IVC ONE ×2 (09:13→18:26)
--- NOTE | 2016-08-27 13:32 | ECHO - Doppler Report ---
Limited Echocardiogram Name: Priscilla Pardo Date of Study: 08/27/2016 Date: 1940 Ht: 59.0 in Medical Record#: [id number] Age: 75 Wt: 177.0 lb Gender: Female BSA: 1.75 Order #: [id number] Location: [facility] Room #: ICU05 Reading Physician: Espinoza Crook MD, [facility] Weeder Thinner: Nick Aranda RN Ordering Physician: Matt Saucedo MD Primary Physician: Peg Gabriel CNP Indications: Shock, Elevated Troponin Impressions: Normal LV systolic function, LVEF 60-65%. Mild-moderate concentric left ventricular hypertrophy. Normal right ventricular size and function. A device lead was visualized in the right atrium and right ventricle. Moderately dilated left atrium. Moderate-severe mitral annular calcification Valvular function was not assessed on this limited study. Left Ventricular Wall Motion: Rest Echo Findings All wall segments showed normal motion. Findings: Study Quality * Technically adequate exam. ECG Findings * Paced rhythm. Left Ventricle * Normal LV systolic function, LVEF 60-65%. * Normal LV chamber size. * Mild-moderate concentric left ventricular hypertrophy. Right Ventricle * Normal right ventricular size and function. Device lead * A device lead was visualized in the right atrium and right ventricle. Aorta * Normally sized aortic root. Pericardium * There is no pericardial effusion present. Mitral Valve * Moderate-severe mitral annular calcification Left Atrium * Moderately dilated left atrium. Right Atrium * Normal right atrial size. IVC * The IVC is not dilated. History Hypertension Diabetes History of CAD/PTCA Congestive Heart Failure Pacer/ICD Implant 04/27/2015 a Previous Echo was performed. Measurements: BP: 109/ 57 2D Normal Values IVSd: 1.40 cm 0.6 - 1.0 cm LVIDd: 4.60 cm 3.7 - 5.6 cm LVPWd: 1.30 cm 0.6 - 1.1 cm LVIDs: 3.00 cm 1.5 - 3.6 cm AO: 2.80 cm < 4.0 cm Updated by Espinoza Crook MD, [facility] on 08/27/2016 1:25:44 PM electronically signed on 08/27/2016 1:26:27 PM with status of Final Wall Motion [place]: 1=Normal, 2=Hypokinesis, 3=Akinesis, 4=Dyskinesis, 5=Aneurysmal, 6=Hyperkinetic, X=Not Visualized (Blank)=Missing
[2016-08-27] MEDS: Famotidine 20 MG/2 ML VIAL IVP SCH (16:18)
[2016-08-27] MEDS: Piperacillin/Tazobactam 3.375 GM in D5% in Water (Mini-Bag+) 100 ML IVPB SCH (16:18)
--- NOTE | 2016-08-27 16:56 | Electrocardiograph Report ---
[place] [id number] Test Date: 2016-08-26 Pat Name: Priscilla Pardo Department: 102 Room: [facility] Gender: F Addiction Social Worker: Msc : 1940 Requested By: Matt Saucedo Order Number: [id number] Reading MD: Elmer Black MD Measurements Intervals [place] Rate: 70 P: 160 MO: 318 QRS: -54 QRSD: 158 T: 81 QT: 467 QTc: 487 Interpretive Statements ELECTRONIC ATRIAL PACEMAKER MARKED LEFT AXIS DEVIATION LEFT BUNDLE BRANCH BLOCK Electronically Signed On 08-27-2016 16:55:21 EDT by Elmer Black MD
[2016-08-27] MEDS ORDERED: Vancomycin 1,250 MG in D5% in Water 250 ML IVPB SCH (21:00)
[2016-08-28] MEDS: methylPREDNISolone 125 MG/2 ML VIAL IVP SCH ×2 (00:20→07:47)
[2016-08-28] MEDS: Lacri-Lube 3.5 GM TUBE BOTH EYES SCH ×6 (00:20→21:04)
[2016-08-28] MEDS: Insulin LISPRO 300 UNITS/3 ML VIAL SQ SCH ×4 (00:20→18:06)
[2016-08-28] MEDS: Piperacillin/Tazobactam 3.375 GM in D5% in Water (Mini-Bag+) 100 ML IVPB SCH ×2 (00:20→07:47)
[2016-08-28 04:17] LABS: Basophils % 0.1 %; Hematocrit 29.9 % (35.3-44.9); Hemoglobin 9.5 g/dL (11.5-15.4); Immature Granulocytes % 0.6 % (0-4); Lymphocytes # 1.3 K/mcL (0.6-4.6); Lymphocytes % 8.2 %; Mean Corpuscular HGB Conc 31.8 g/dL (31.6-35.5); Mean Corpuscular Hemoglobin 27.8 pg (28.0-33.3); Mean Corpuscular Volume 87.4 fL (83.0-100.0); Mean Platelet Volume 9.6 fL (9.4-12.4); Monocytes # 0.6 K/mcL (0.0-1.3); Monocytes % 3.4 %; Neutrophils # 14.3 K/mcL (1.6-8.9); Platelet Count 307 K/mcL (140-400); Red Blood Count 3.42 M/mcL (3.82-4.97); Red Cell Distribution Width 19.9 % (11.5-14.5); Segmented Neutrophils % 87.7 %
[2016-08-28] MEDS: Famotidine 20 MG/2 ML VIAL IVP SCH ×2 (06:03→17:09)
[2016-08-28] MEDS: *HR* Heparin 5,000 UNIT/ML VIAL SQ SCH ×2 (06:03→18:01)
[2016-08-28 06:40] LABS: Albumin 3.2 g/dL (3.5-5.0); Albumin/Globulin Ratio 0.9 (1.1-2.2); Bilirubin,Direct 0.3 mg/dL (0.0-0.5); Bilirubin,Indirect 0.1 mg/dL (0.0-1.2); Bilirubin,Total 0.4 mg/dL (0.2-1.2); Calcium 9.1 mg/dL (8.6-10.8); Globulin 3.6 g/dL (2.4-3.5); Potassium 4.2 mEq/L (3.5-4.5); Total Protein 6.8 g/dL (6.0-8.3)
--- NOTE | 2016-08-28 06:46 | Pulmonology Progress Note ---
<Sherry Pardo - Last Filed: 08/28/16 10:53> Date of Encounter: 08/28/16 Time of Encounter: 06:45 Assessment and Plan (1) Angioedema Current Visit: Yes Status: Acute Patient presented to the ED with acute swelling of tongue, lips and mouth. She was intubated in the ED for airway protection. On review of medications, patient has been taking either lisinopril and/or Entresto for blood pressure control. Patient has no personal history of allergeis or angioedema. Unknown family history She is now intubated and sedated. Patient recieved 2 units FFP on admission. On exam, tongue is still swollen and protruding, but is improving. - DIANE inhibitor and ARB have been stopped. - Patient remains intubated and sedated. Will stop versed drip. Continue fentanyl with versed bolus if needed. - Labs pending including C1q, C1 esterase and C4 complement - Solu-medrol 80mg every 8 hours - Benadryl BID - Pepcid BID - Singular QD - Consult placed to ENT - Consult placed to Allergy/Immunology Qualifiers: Encounter type: initial encounter Qualified Code(s): T78.3XXA - Angioneurotic edema, initial encounter (2) Hypotensive episode Current Visit: Yes Status: Acute After admission, patient became hypotensive with MAP around 50 unresponsive to fluids. Central line was place and patient was started on Epinephrine. Overnight, patient's blood pressure improved and the epinephrine was stopped. Due to concern for possible sepsis of infection etiology, blood cultures were sent and patient was started on emperic antibiotics with vancomycin and zosyn. Blood cultures negative to date. Concern for infectious cause is very low and with patient's worsening kidney function, will stop antibiotics at this time. - Monitor blood pressure - Follow cultures - Stop antibiotics today (3) Acute kidney injury Current Visit: Yes Status: Acute Acute kidney injury with decreased urine output. Today's creatinine 2.21 from 1.64 yesterday. UOP 125ml over last 4 hours. Due to poor kidney function and low suspicion for infectious cause, will stop antibiotics today. Will try does of IV lasix - 20mg IV lasix today - Monitor urine output - Stop antibiotics - Monitor kidney function (4) Elevated liver enzymes Current Visit: Yes Status: Acute Acute elevation in liver enzymes likely secondary to hypotension overnight - improved today almost to baseline. (5) Sick sinus syndrome Current Visit: Yes Status: Acute Patient with history of sick sinus syndrome with BV-ICD in place for CHF. Heart rate appropriate thus far, no arrhythmias. Patient is on a b-yen at home. Will restart at low dose - Monitor heart rate and rhythm - Coreg 3.125mg BIDWM (6) HTN (hypertension) Current Visit: Yes Status: Acute History of HTN on lisinopril/Entresto and carvedilol. Hypotensive improved and blood pressures have been appropriate. Due to angioedema, patient should not be placed back on diane inhibiotrs or ARBs. Will restart beta-yen at low dose. - Monitor blood pressure - Start coreg 3.125mg BIDWM Qualifiers: Hypertension type: essential hypertension Qualified Code(s): I10 - Essential (primary) hypertension (7) CAD (coronary artery disease) Current Visit: Yes Status: Acute History of CAD s/p CABG. Last troponin 0.04 likely secondary to demand ischemia from her acute illness. - Cardiac monitoring Qualifiers: Coronary Disease-Associated Artery/Lesion type: unspecified vessel or lesion type [place] vs. transplanted heart: [place] heart Associated angina: angina presence unspecified Qualified Code(s): I25.10 - Atherosclerotic heart disease of [place] coronary artery without angina pectoris (8) CHF (congestive heart failure) Current Visit: Yes Status: Chronic Reported history of CHF with BV-ICD in place - ECHO done this admission showed EF of 60-65% improved from 04/2015 when EF was 35-40% - Continue home medications and monitor fluid status Qualifiers: Congestive heart failure type: systolic Congestive heart failure chronicity : chronic Qualified Code(s): I50.22 - Chronic systolic (congestive) heart failure (9) T2DM (type 2 diabetes mellitus) Current Visit: Yes Status: Chronic History of T2DM not on any home medications. Glucose have been at goal of <180 in ICU. - Monitor glucose - Sliding scale insulin Qualifiers: Diabetes mellitus complication status: with unspecified complications Diabetes mellitus long term care social worker insulin use: without fpc use Qualified Code( s): E11.8 - Type 2 diabetes mellitus with unspecified complications (10) DVT prophylaxis Current Visit: Yes Status: Acute Heparin Neuro: Intubated and sedated. Stop versed drip. Continue fentanyl and versed bolus if needed. Pulm: Intubated for airway protection. Vent: VC+ TV400, R16, FiO2 50% and PEEP of 5.0. Last ABG acidotic at 7.25. Increase rate to 18 and recheck ABG. Cards: Blood pressures improved. Cardiac monitoring. ECHO showed EF of 60-65% . Will restart home beta yen at low dose. FEN-GI: OG tube in place. Will start tube feeds today. On pepcid. Renal: Acute kidney injury. Stat[place] in place. Decreased UOP. Try 20mg IV lasix and monitor output. ID: Blood cultures negative thus far. Low suspicion for infectious process. Will worsening kidney function will stop antibiotics today Heme/Onc: Recieved 2 units FFP on admission. Heparin for DVT ppx Endo: Monitor glucose. SSI Immuno: Severe angioedema likely secondary to DIANE inhibitor. Transfuse 2 units FFP. Steroids, Benadryl, Pepcid, Singulair. Consult to ENT and Allergy/ Immunology. Follow labs- C1q, C4, C1 esterase. Keep patient intubated and sedated Skin: skin care per ICU protocol Lines: ET, OG, right femoral line, [place] - Remove right fem line today Code: Full code Dispo: ICU Subjective Principal diagnosis: Severe angioedema Interval history: No acute events overnight. Blood pressure improved and patent was taken off of epinephrine. Patient seen and examined. Afebrile overnight with stable vital sings. She remains intubated and sedated with fentanyl and versed. Vent settings on VC - TV400, RR16, FiO2 55%, PEEP 5.0. Patient's vidal is still swollen and protruding however is improved from yesterday. Lungs clear to auscultation. Abdomen soft, non-tender. No pedal edema. Objective PUL Vital signs: Last Vital Signs Temp 97.6 F 08/28/16 06:00 Pulse 61 08/28/16 06:00 Resp 16 08/28/16 06:00 BP 151/73 08/28/16 06:00 Pulse Ox 98 08/28/16 06:00 General appearance: other (Intubated and sedated) Eyes: nonicteric ENT: other (tongue swollen and protruding) Neck: other (soft to palpation) Effort: normal Auscultation: bilateral: clear Cardiovascular: regular rate and rhythm Gastrointestinal: soft, non-tender, non-distended Integumentary: normal Extremities: no cyanosis, no edema unable to assess due to mental status Ventilator Settings Ventilator Settings: Ventilator Settings, Last 8 Hours Ventilator Mode A/C Ventilator Mode A/C Ventilator Mode A/C Ventilator Mode A/C Ventilator Mode A/C Ventilator Mode A/C Ventilator Mode A/C Ventilator Mode A/C Ventilator Mode A/C Ventilator Mode A/C Ventilator Mode A/C Ventilator Tidal Volume 400 Setting Ventilator Tidal Volume 400 Setting Ventilator Tidal Volume 400 Setting Ventilator Tidal Volume 400 Setting Ventilator Tidal Volume 400 Setting Ventilator Tidal Volume 400 Setting Ventilator Tidal Volume 400 Setting Ventilator Tidal Volume 400 Setting Ventilator Tidal Volume 400 Setting Ventilator Tidal Volume 400 Setting Ventilator Tidal Volume 400 Setting Ventilator Respiratory Rate 16 Setting Ventilator Respiratory Rate 16 Setting Ventilator Respiratory Rate 16 Setting Ventilator Respiratory Rate 16 Setting Ventilator Respiratory Rate 16 Setting Ventilator Respiratory Rate 16 Setting Ventilator Respiratory Rate 16 Setting Ventilator Respiratory Rate 16 Setting Ventilator Respiratory Rate 16 Setting Ventilator Respiratory Rate 16 Setting Ventilator Respiratory Rate 16 Setting Actual Respiratory Rate 16 Actual Respiratory Rate 16 Actual Respiratory Rate 16 Actual Respiratory Rate 16 Actual Respiratory Rate 16 Actual Respiratory Rate 16 Actual Respiratory Rate 16 Actual Respiratory Rate 16 Actual Respiratory Rate 16 Actual Respiratory Rate 16 Actual Respiratory Rate 16 Positive End Expiratory 5 Pressure Positive End Expiratory 5 Pressure Positive End Expiratory 5 Pressure Positive End Expiratory 5 Pressure Positive End Expiratory 5 Pressure Positive End Expiratory 5 Pressure Positive End Expiratory 5 Pressure Positive End Expiratory 5 Pressure Positive End Expiratory 5 Pressure Positive End Expiratory 5 Pressure Positive End Expiratory 5 Pressure Peak Inspiratory Airway 32 Pressure Peak Inspiratory Airway 32 Pressure Peak Inspiratory Airway 32 Pressure Peak Inspiratory Airway 33 Pressure Peak Inspiratory Airway 34 Pressure Peak Inspiratory Airway 33 Pressure Peak Inspiratory Airway 34 Pressure Peak Inspiratory Airway 33 Pressure Peak Inspiratory Airway 33 Pressure Peak Inspiratory Airway 33 Pressure Peak Inspiratory Airway 35 Pressure Results - Laboratory Findings CBC and BMP: 08/28/16 03:15 08/28/16 03:15 ABG ABG pH 7.30 pH Units (7.32-7.45) L 08/27/16 05:51 ABG pCO2 37 mmHg (35-45) 08/27/16 05:51 ABG pO2 119 mmHg (85-104) H 08/27/16 05:51 ABG O2 Saturation 98 % (95-98) 08/27/16 05:51 PT/INR, D-dimer PT 12.7 Seconds (9.4-12.1) H 08/26/16 16:45 Abnormal lab findings: Abnormal lab results WBC 16.3 K/mcL (4.3-11.1) H 08/28/16 03:15 RBC 3.42 M/mcL (3.82-4.97) L 08/28/16 03:15 Hgb 9.5 g/dL (11.5-15.4) L 08/28/16 03:15 Hct 29.9 % (35.3-44.9) L 08/28/16 03:15 MCH 27.8 pg (28.0-33.3) L 08/28/16 03:15 RDW 19.9 % (11.5-14.5) H 08/28/16 03:15 Neutrophils # 14.3 K/mcL (1.6-8.9) H 08/28/16 03:15 ESR 63 mm/hr (0-15) H 08/28/16 03:15 PT 12.7 Seconds (9.4-12.1) H 08/26/16 16:45 ABG pH 7.30 pH Units (7.32-7.45) L 08/27/16 05:51 ABG pO2 119 mmHg (85-104) H 08/27/16 05:51 ABG HCO3 18.2 mEQ/L (21-27) L 08/27/16 05:51 ABG Total CO2 19.3 mEq/L (20-26) L 08/27/16 05:51 ABG Base Excess -7.6 mEq/L (-2.0 to 3.0) L 08/27/16 05:51 Chloride 111 mEq/L (98-109) H 08/27/16 04:20 BUN 37 mg/dL (7-20) H 08/27/16 04:20 Creatinine 1.64 mg/dL (0.57-1.11) H D 08/27/16 04:20 Est GFR ( Amer) 37 (> 60) L 08/27/16 04:20 Est GFR (Non-Af Amer) 30 (> 60) L 08/27/16 04:20 Glucose 217 mg/dL (70-99) H 08/27/16 04:20 POC Glucose 156 (58-89) H 08/28/16 06:07 Calculated Osmolality 301 (280-300) H 08/27/16 04:20 Calcium 8.5 mg/dL (8.6-10.8) L 08/27/16 04:20 AST 103 Units/L (5-34) H 08/27/16 04:20 ALT 65 Units/L (0-55) H 08/27/16 04:20 Alkaline Phosphatase 145 Units/L (38-126) H 08/27/16 04:20 Troponin I 0.04 ng/mL (0-0.03) H* 08/26/16 21:58 C-Reactive Protein 15 mg/L (Less than 5) H 08/27/16 04:20 Albumin 2.9 g/dL (3.5-5.0) L 08/27/16 04:20 Albumin/Globulin Ratio 0.8 (1.1-2.2) L 08/27/16 04:20 - Clinical Findings Intake & Output: Intake & Output 08/27/16 08/27/16 08/28/16 15:59 23:59 07:59 Intake Total 1284.1 / 1284.1 182.8 / 182.8 Output Total 50 / 50 160 / 160 75 / 75 Balance 1234.1 / 1234.1 22.8 / 22.8 -75 / -75 Consult Discharge Plan - Plan Referrals: Peg Gabriel, [employer] [Primary Care Provider] - <Matt Saucedo - Last Filed: 08/28/16 11:25> Date of Encounter: 08/28/16 Objective PUL Vital signs: Last Vital Signs Temp 98.2 F 08/28/16 08:00 Pulse 64 08/28/16 08:00 Resp 16 08/28/16 08:00 BP 147/70 08/28/16 08:00 Pulse Ox 98 08/28/16 08:00 Ventilator Settings Ventilator Settings: Ventilator Settings, Last 8 Hours Ventilator Mode A/C Ventilator Mode A/C Ventilator Mode A/C Ventilator Mode A/C Ventilator Mode A/C Ventilator Mode A/C Ventilator Mode A/C Ventilator Mode A/C Ventilator Mode A/C Ventilator Mode A/C Ventilator Tidal Volume 400 Setting Ventilator Tidal Volume 400 Setting Ventilator Tidal Volume 400 Setting Ventilator Tidal Volume 400 Setting Ventilator Tidal Volume 400 Setting Ventilator Tidal Volume 400 Setting Ventilator Tidal Volume 400 Setting Ventilator Tidal Volume 400 Setting Ventilator Tidal Volume 400 Setting Ventilator Tidal Volume 400 Setting Ventilator Respiratory Rate 16 Setting Ventilator Respiratory Rate 16 Setting Ventilator Respiratory Rate 16 Setting Ventilator Respiratory Rate 16 Setting Ventilator Respiratory Rate 16 Setting Ventilator Respiratory Rate 16 Setting Ventilator Respiratory Rate 16 Setting Ventilator Respiratory Rate 16 Setting Ventilator Respiratory Rate 16 Setting Ventilator Respiratory Rate 16 Setting Actual Respiratory Rate 16 Actual Respiratory Rate 16 Actual Respiratory Rate 16 Actual Respiratory Rate 16 Actual Respiratory Rate 16 Actual Respiratory Rate 16 Actual Respiratory Rate 16 Actual Respiratory Rate 16 Actual Respiratory Rate 16 Actual Respiratory Rate 16 Positive End Expiratory 5 Pressure Positive End Expiratory 5 Pressure Positive End Expiratory 5 Pressure Positive End Expiratory 5 Pressure Positive End Expiratory 5 Pressure Positive End Expiratory 5 Pressure Positive End Expiratory 5 Pressure Positive End Expiratory 5 Pressure Positive End Expiratory 5 Pressure Positive End Expiratory 5 Pressure Peak Inspiratory Airway 31 Pressure Peak Inspiratory Airway 31 Pressure Peak Inspiratory Airway 32 Pressure Peak Inspiratory Airway 32 Pressure Peak Inspiratory Airway 32 Pressure Peak Inspiratory Airway 32 Pressure Peak Inspiratory Airway 33 Pressure Peak Inspiratory Airway 34 Pressure Peak Inspiratory Airway 33 Pressure Peak Inspiratory Airway 34 Pressure Results - Laboratory Findings CBC and BMP: 08/28/16 03:15 08/28/16 03:15 ABG ABG pH 7.25 pH Units (7.32-7.45) L 08/28/16 04:20 ABG pCO2 44 mmHg (35-45) 08/28/16 04:20 ABG pO2 82 mmHg (85-104) L 08/28/16 04:20 ABG O2 Saturation 94 % (95-98) L 08/28/16 04:20 PT/INR, D-dimer PT 12.7 Seconds (9.4-12.1) H 08/26/16 16:45 Abnormal lab findings: Abnormal lab results WBC 16.3 K/mcL (4.3-11.1) H 08/28/16 03:15 RBC 3.42 M/mcL (3.82-4.97) L 08/28/16 03:15 Hgb 9.5 g/dL (11.5-15.4) L 08/28/16 03:15 Hct 29.9 % (35.3-44.9) L 08/28/16 03:15 MCH 27.8 pg (28.0-33.3) L 08/28/16 03:15 RDW 19.9 % (11.5-14.5) H 08/28/16 03:15 Neutrophils # 14.3 K/mcL (1.6-8.9) H 08/28/16 03:15 ESR 63 mm/hr (0-15) H 08/28/16 03:15 PT 12.7 Seconds (9.4-12.1) H 08/26/16 16:45 ABG pH 7.25 pH Units (7.32-7.45) L 08/28/16 04:20 ABG pO2 82 mmHg (85-104) L 08/28/16 04:20 ABG HCO3 19.3 mEQ/L (21-27) L 08/28/16 04:20 ABG O2 Saturation 94 % (95-98) L 08/28/16 04:20 ABG Base Excess -7.6 mEq/L (-2.0 to 3.0) L 08/28/16 04:20 Chloride 110 mEq/L (98-109) H 08/28/16 03:15 Carbon Dioxide 18 mEq/L (19-29) L 08/28/16 03:15 BUN 51 mg/dL (7-20) H D 08/28/16 03:15 Creatinine 2.21 mg/dL (0.57-1.11) H 08/28/16 03:15 Est GFR ( Amer) 26 (> 60) L 08/28/16 03:15 Est GFR (Non-Af Amer) 22 (> 60) L 08/28/16 03:15 Glucose 144 mg/dL (70-99) H 08/28/16 03:15 POC Glucose 156 (58-89) H 08/28/16 06:07 Calculated Osmolality 304 (280-300) H 08/28/16 03:15 AST 52 Units/L (5-34) H 08/28/16 03:15 Alkaline Phosphatase 135 Units/L (38-126) H 08/28/16 03:15 Troponin I 0.04 ng/mL (0-0.03) H* 08/26/16 21:58 C-Reactive Protein 11 mg/L (Less than 5) H 08/28/16 03:15 Albumin 3.2 g/dL (3.5-5.0) L 08/28/16 03:15 Globulin 3.6 g/dL (2.4-3.5) H 08/28/16 03:15 Albumin/Globulin Ratio 0.9 (1.1-2.2) L 08/28/16 03:15 - Microbiology Findings Microbiology Findings: Microbiology, Last 48 Hours 08/27/16 00:35 Blood Culture - Preliminary Central Venous Catheter No growth. - Clinical Findings Intake & Output: Intake & Output 08/27/16 08/28/16 08/28/16 23:59 07:59 15:59 Intake Total 182.8 / 182.8 100 / 100 Output Total 160 / 160 125 / 125 Balance 22.8 / 22.8 -25 / -25 - Attending Attestation I examined this patient and my medical decision-making was reviewed with the TOOL AND PRODUCTION PLANNER/PA/Advanced Practice Nurse/Resident Physician. I agree with the documented findings, disposition and treatment plan as described except to the extent set forth below. Patient seen and examined at bedside Labs, radiology, chart personally reviewed. All lines examined without evidence of infection. Neuro/Psych: sedated on vent.PERRL and moves when stimulated. Decrease dose of narcotic/benzo today Resp: Intubated for airway mngt. acceptable oxygenation on minimal vent support using approx TV 8cc/kg IBW. History of COPD schedule duonebs every 6 hours. Cardio: Hypotension has resolved (sedation related); History of HFrEF. holding BB at present . ECHO shows EF%=50-55. Restart low dose BB GI: Gi prophylaxis given. NPO for now Renal: Oliguric LIVIA likely s/t to Hypotension. Renally dose all meds. trial diuretic today. Daily RFP ID: [place] cultured empiric antimicrobials started which will hold (vanc/zosyn) because of low suspicion of infection and possibility of nephrotoxicity. Leuckocytosis felt most likely s/t steroid dose. HEME/ONC: DVT prophylaxis given. H/H stable no evidence of coagulopathy SKIN: Skin Care per ICU protocol to prevent ulcers Allergy/Immunology: Acute angioedema without urticaria suspect ACEi induced. Holding med now. H1/H2 blockers given. Hold IV steroids. Allergy consulted - starting LTA,. ENT also consulted to evaluate severity of tongue swelling no additional recs. Code: Full updated at bedside.
[2016-08-28] MEDS: Chlorhexidine Rinse 15 ML MOUTHWASH MM SCH ×2 (07:47→21:03)
[2016-08-28 07:54] LABS: ABG Base Excess -7.6 mEq/L (-2.0 to 3.0); ABG HCO3 19.3 mEQ/L (21-27); ABG Oxygen Saturation 94 % (95-98); ABG PCO2 44 mmHg (35-45); ABG PH 7.25 pH Units (7.32-7.45); ABG PO2 82 mmHg (85-104); ABG TCO2 20.7 mEq/L (20-26)
[2016-08-28 07:55] LABS: Blood Gas FiO2 55 %
--- NOTE | 2016-08-28 09:17 | Electrocardiograph Report ---
[place] [id number] Test Date: 2016-08-26 Pat Name: Priscilla Pardo Department: 109 Room: [facility] Gender: F Organizational Psychologist: SIVAKUMAR : 1940 Requested By: Easton Nath Order Number: [id number] Reading MD: Elmer Black MD Measurements Intervals [place] Rate: 59 P: 57 AR: 191 QRS: -58 QRSD: 154 T: 149 QT: 529 QTc: 529 Interpretive Statements [employer]EM[employer] [facility]BB[facility] Electronically Signed On 08-28-2016 9:16:09 EDT by Elmer Black MD
[2016-08-28] MEDS ORDERED: Furosemide 20 MG/2 ML VIAL IVP ONE (10:27)
[2016-08-28] MEDS ORDERED: Aminoglycoside Consult 1 EACH MC ONE (10:54)
--- NOTE | 2016-08-28 15:11 | Allergy Consult Note ---
Date of Encounter: 08/28/16 Time of Encounter: 07:00 Assessment and Plan (1) Angioedema Current Visit: Yes Status: Acute Patient is a 75 year old female pmhx HTN, CAD, CABG, CHF, DM2, Sick sinus syndrome s/p AICD placement with angioedema of lips and tongue. Patient is intubated and tongue swelling is slowly improving. I believe this was drug induced secondary to DIANE inhibitor or ARB or both. She has no history of angioedema or anaphylaxis. This is unlikely HAE and could be AAE but is more likely drug induced. I agree with current management of patient. I don't believe any other treatment is available at this time to quicken the improvement of her angioedema. I don't believe this was anaphylaxis. I am awaiting her C4 level. I don't recommend any further labs at this time. I am happy to follow along with ICU team and will see her as an outpatient if the family has any further concerns. She should avoid DIANE inhibitors and ARBs for the rest of her life. Qualifiers: Encounter type: initial encounter Qualified Code(s): T78.3XXA - Angioneurotic edema, initial encounter History of Present Illness Consult date: 08/27/16 Comment: Angioedema Requesting physician: Matt Saucedo History of present illness: 75 year old female with history of HTN, CAD, CABG, CHF, DM2, Sick sinus syndrome s/p AICD placement who presented to ED on 08/26/16 d/t lip and tongue swelling. Patient is currently intubated so HPI was obtained via chart review. Documentation indicates that she started with lip and tongue swelling the morning of 08/26/16 and had some improvement with lunch and then worsening that afternoon. Patient presented with enlarged tongue and lips and was drooling, but had no difficulty breathing, stomach pain, diarrhea, vomiting or rash. Vitals were stable upon arrival. She was intubated for airway protection due to worsening tongue swelling. She had been on an diane inhibitor and transitioning to an ARB but it is not clear which she was taking or possibly both. She does not have a history of angioedema or anaphylaxis. Patient was placed on epi drip, benadryl, pepcid and was given FFP. Past Med Surg Social Fam HX - Past Medical History Medical history: arthritis, cancer, CHF, COPD, CVA, diabetes, hyperlipidemia, hypertension, myocardial infarction, other Psychiatric history: depression - Past Surgical History Surgical History: appendectomy, cholecystectomy - Social History Smoking Status: Never smoker Smokeless Tobacco Status: No Alcohol use: none Drug use: none Medications and Allergies Albuterol Neb [Proventil Neb] 2.5 mg IH TID 03/29/15 [History] Albuterol Sulfate [Albuterol Inhaler] 2 puff IH Q4HR PRN 03/29/15 [History] Atorvastatin Calcium [Lipitor] 20 mg PO HS 03/29/15 [History] Lisinopril [Zestril] 5 mg PO DAILY 03/29/15 [History] [place]-3S/Dha/Epa/Fish Oil [Fish Oil 1,200 mg Softgel] 1 cap PO DAILY 03/29/15 [ History] Omeprazole [PriLOSEC] 40 mg PO DAILY 03/29/15 [History] TraMADol [Ultram] 50 mg PO TID PRN 03/29/15 [History] Aspirin Enteric Coated [Aspirin EC] 81 mg PO DAILY 30 Days 03/30/15 [Rx] Carvedilol [Coreg] 25 mg PO BID 08/26/16 [History] Docusate [Colace] 100 mg PO DAILY PRN 08/26/16 [History] Ferrous Sulfate 325 mg PO BIDWM 08/26/16 [History] Furosemide [Lasix] 40 mg PO DAILY 08/26/16 [History] Melatonin 5 mg PO HS PRN 08/26/16 [History] Nitroglycerin [Nitrostat] 0.4 mg SL Q5M PRN 08/26/16 [History] Oxygen 2 l NS AD 08/26/16 [History] Potassium Chloride [K-Tab ER] 20 meq PO BID 08/26/16 [History] Sacubitril/Valsartan [Entresto 24 mg-26 mg Tablet] 1 each PO BID 08/26/16 [ History] Spironolactone [Aldactone] 12.5 mg PO DAILY 08/26/16 [History] Allergies DIANE Inhibitors Allergy (Severe, Verified 08/27/16 07:09) Swelling of Lip/Tongue/Throat Severe angioedema 08/26/2016 ARB-Angiotensin Receptor Antagonist Allergy (Severe, Verified 08/27/16 07:09) Swelling of Lip/Tongue/Throat Severe angioedema 08/27/2016 plastic tape Allergy (Uncoded 08/26/16 15:23) See Comments ROS Allergy ROS unobtainable: due to endotracheal tube Allergy Exam Initial Vital Signs Temp Pulse Resp BP Pulse Ox 97.5 F L 68 18 116/62 98 08/26/16 15:18 08/26/16 15:18 08/26/16 15:18 08/26/16 15:18 08/26/16 15:18 - General physical appearance other (sedated and intubated) - ENT Other (intuabed, tongue is enlarged and protuding, moderate edema of upper and lower lip). negative: decreased hearing, deviated nasal septum, nasal discharge , poor care home, dentures, mucosal exudate, dry mucosa - Neck other (mild edema noted) - Respiratory clear to auscultation - Abdomen Abdomen: soft - Integumentary no rash (no edema noted other than tongue, lip and neck) - Neurologic other (sedated) - Musculoskeletal other (sedated) Results - Labs 08/28/16 03:15 08/28/16 03:15 Abnormal lab results WBC 16.3 K/mcL (4.3-11.1) H 08/28/16 03:15 RBC 3.42 M/mcL (3.82-4.97) L 08/28/16 03:15 Hgb 9.5 g/dL (11.5-15.4) L 08/28/16 03:15 Hct 29.9 % (35.3-44.9) L 08/28/16 03:15 MCH 27.8 pg (28.0-33.3) L 08/28/16 03:15 RDW 19.9 % (11.5-14.5) H 08/28/16 03:15 Neutrophils # 14.3 K/mcL (1.6-8.9) H 08/28/16 03:15 ESR 63 mm/hr (0-15) H 08/28/16 03:15 PT 12.7 Seconds (9.4-12.1) H 08/26/16 16:45 ABG pH 7.25 pH Units (7.32-7.45) L 08/28/16 04:20 ABG pO2 82 mmHg (85-104) L 08/28/16 04:20 ABG HCO3 19.3 mEQ/L (21-27) L 08/28/16 04:20 ABG O2 Saturation 94 % (95-98) L 08/28/16 04:20 ABG Base Excess -7.6 mEq/L (-2.0 to 3.0) L 08/28/16 04:20 Chloride 110 mEq/L (98-109) H 08/28/16 03:15 Carbon Dioxide 18 mEq/L (19-29) L 08/28/16 03:15 BUN 51 mg/dL (7-20) H D 08/28/16 03:15 Creatinine 2.21 mg/dL (0.57-1.11) H 08/28/16 03:15 Est GFR ( Amer) 26 (> 60) L 08/28/16 03:15 Est GFR (Non-Af Amer) 22 (> 60) L 08/28/16 03:15 Glucose 144 mg/dL (70-99) H 08/28/16 03:15 POC Glucose 166 (58-89) H 08/28/16 11:36 Calculated Osmolality 304 (280-300) H 08/28/16 03:15 AST 52 Units/L (5-34) H 08/28/16 03:15 Alkaline Phosphatase 135 Units/L (38-126) H 08/28/16 03:15 Troponin I 0.04 ng/mL (0-0.03) H* 08/26/16 21:58 C-Reactive Protein 11 mg/L (Less than 5) H 08/28/16 03:15 Albumin 3.2 g/dL (3.5-5.0) L 08/28/16 03:15 Globulin 3.6 g/dL (2.4-3.5) H 08/28/16 03:15 Albumin/Globulin Ratio 0.9 (1.1-2.2) L 08/28/16 03:15 Diabetes panel 08/28/16 Range/Units 03:15 Sodium 139 (136-145) mEq/L Potassium 4.2 (3.5-4.5) mEq/L Chloride 110 H (98-109) mEq/L Carbon Dioxide 18 L (19-29) mEq/L BUN 51 H D (7-20) mg/dL Creatinine 2.21 H (0.57-1.11) mg/dL Glucose 144 H (70-99) mg/dL Calcium 9.1 (8.6-10.8) mg/dL AST 52 H (5-34) Units/L ALT 50 (0-55) Units/L Alkaline Phosphatase 135 H (38-126) Units/L Albumin 3.2 L (3.5-5.0) g/dL Calcium panel 08/28/16 Range/Units 03:15 Calcium 9.1 (8.6-10.8) mg/dL Albumin 3.2 L (3.5-5.0) g/dL Pituitary panel 08/28/16 Range/Units 03:15 Sodium 139 (136-145) mEq/L Potassium 4.2 (3.5-4.5) mEq/L Chloride 110 H (98-109) mEq/L Carbon Dioxide 18 L (19-29) mEq/L BUN 51 H D (7-20) mg/dL Creatinine 2.21 H (0.57-1.11) mg/dL Glucose 144 H (70-99) mg/dL Calcium 9.1 (8.6-10.8) mg/dL Adrenal panel 08/28/16 Range/Units 03:15 Sodium 139 (136-145) mEq/L Potassium 4.2 (3.5-4.5) mEq/L Chloride 110 H (98-109) mEq/L Carbon Dioxide 18 L (19-29) mEq/L BUN 51 H D (7-20) mg/dL Creatinine 2.21 H (0.57-1.11) mg/dL Glucose 144 H (70-99) mg/dL Calcium 9.1 (8.6-10.8) mg/dL Total Bilirubin 0.4 (0.2-1.2) mg/dL AST 52 H (5-34) Units/L ALT 50 (0-55) Units/L Alkaline Phosphatase 135 H (38-126) Units/L Albumin 3.2 L (3.5-5.0) g/dL All other labs normal. Consult Discharge Plan - Plan Referrals: Peg Gabriel, LEVI [Primary Care Provider] -
[2016-08-28] MEDS ORDERED: Furosemide 40 MG/4 ML VIAL IVP ONE (16:56)
[2016-08-28] MEDS ORDERED: Piperacillin/Tazobactam 3.375 GM in D5% in Water (Mini-Bag+) 100 ML IVPB SCH (20:00)
[2016-08-28] MEDS: EPINEPHrine 1 MG in D5% in Water 250 ML IVC SCH (20:59)
[2016-08-28] MEDS: FentaNYL (PF) 1,000 MCG in 0.9 % Sodium Chloride 80 ML IVC SCH (21:03)
[2016-08-28 21:59] LABS: Magnesium 2.3 mg/dL (1.6-2.6); Potassium 4.3 mEq/L (3.5-4.5)
[2016-08-29] MEDS: Insulin LISPRO 300 UNITS/3 ML VIAL SQ SCH ×5 (00:16→23:26)
[2016-08-29] MEDS: Lacri-Lube 3.5 GM TUBE BOTH EYES SCH ×7 (00:16→23:26)
[2016-08-29 05:05] LABS: ABG Base Excess -4.5 mEq/L (-2.0 to 3.0); ABG HCO3 21.1 mEQ/L (21-27); ABG Oxygen Saturation 100 % (95-98); ABG PCO2 40 mmHg (35-45); ABG PH 7.33 pH Units (7.32-7.45); ABG PO2 343 mmHg (85-104); ABG TCO2 22.3 mEq/L (20-26)
[2016-08-29 05:10] LABS: Blood Gas FiO2 55 %
[2016-08-29] MEDS: Famotidine 20 MG/2 ML VIAL IVP SCH ×2 (06:20→17:24)
[2016-08-29] MEDS: *HR* Heparin 5,000 UNIT/ML VIAL SQ SCH ×2 (06:20→17:24)
[2016-08-29 06:58] LABS: Albumin/Globulin Ratio 0.8 (1.1-2.2); Bilirubin,Total 0.3 mg/dL (0.2-1.2); Globulin 3.6 g/dL (2.4-3.5); Potassium 4.3 mEq/L (3.5-4.5); Total Protein 6.6 g/dL (6.0-8.3)
--- NOTE | 2016-08-29 07:20 | Pulmonology Progress Note ---
<SherylMatt W - Last Filed: 08/29/16 10:26> Date of Encounter: 08/29/16 Objective PUL Vital signs: Last Vital Signs Temp 96.9 F L 08/29/16 08:47 Pulse 60 08/29/16 08:00 Resp 25 08/29/16 08:09 BP 116/72 08/29/16 08:09 Pulse Ox 100 08/29/16 08:09 Ventilator Settings Ventilator Settings: Ventilator Settings, Last 8 Hours Ventilator Mode A/C Ventilator Mode A/C Ventilator Mode A/C Ventilator Mode A/C Ventilator Mode A/C Ventilator Mode A/C Ventilator Mode A/C Ventilator Tidal Volume 400 Setting Ventilator Tidal Volume 400 Setting Ventilator Tidal Volume 400 Setting Ventilator Tidal Volume 400 Setting Ventilator Tidal Volume 400 Setting Ventilator Tidal Volume 400 Setting Ventilator Tidal Volume 400 Setting Ventilator Respiratory Rate 18 Setting Ventilator Respiratory Rate 18 Setting Ventilator Respiratory Rate 18 Setting Ventilator Respiratory Rate 18 Setting Ventilator Respiratory Rate 18 Setting Ventilator Respiratory Rate 18 Setting Ventilator Respiratory Rate 18 Setting Actual Respiratory Rate 25 Actual Respiratory Rate 18 Actual Respiratory Rate 18 Actual Respiratory Rate 18 Actual Respiratory Rate 18 Actual Respiratory Rate 18 Actual Respiratory Rate 18 Positive End Expiratory 5 Pressure Positive End Expiratory 5 Pressure Positive End Expiratory 5 Pressure Positive End Expiratory 5 Pressure Positive End Expiratory 5 Pressure Positive End Expiratory 5 Pressure Positive End Expiratory 5 Pressure Peak Inspiratory Airway 46 Pressure Peak Inspiratory Airway 37 Pressure Peak Inspiratory Airway 32 Pressure Peak Inspiratory Airway 32 Pressure Peak Inspiratory Airway 32 Pressure Peak Inspiratory Airway 32 Pressure Peak Inspiratory Airway 32 Pressure Results - Laboratory Findings CBC and BMP: 08/29/16 07:41 08/29/16 06:30 ABG ABG pH 7.33 pH Units (7.32-7.45) 08/29/16 04:55 ABG pCO2 40 mmHg (35-45) 08/29/16 04:55 ABG pO2 343 mmHg (85-104) H 08/29/16 04:55 ABG O2 Saturation 100 % (95-98) H 08/29/16 04:55 PT/INR, D-dimer PT 12.7 Seconds (9.4-12.1) H 08/26/16 16:45 Abnormal lab findings: Abnormal lab results WBC 16.9 K/mcL (4.3-11.1) H 08/29/16 07:41 RBC 3.75 M/mcL (3.82-4.97) L 08/29/16 07:41 Hgb 10.5 g/dL (11.5-15.4) L 08/29/16 07:41 Hct 33.7 % (35.3-44.9) L 08/29/16 07:41 MCHC 31.2 g/dL (31.6-35.5) L 08/29/16 07:41 RDW 20.4 % (11.5-14.5) H 08/29/16 07:41 Neutrophils # 14.4 K/mcL (1.6-8.9) H 08/29/16 07:41 ESR 63 mm/hr (0-15) H 08/28/16 03:15 PT 12.7 Seconds (9.4-12.1) H 08/26/16 16:45 ABG pO2 343 mmHg (85-104) H 08/29/16 04:55 ABG O2 Saturation 100 % (95-98) H 08/29/16 04:55 ABG Base Excess -4.5 mEq/L (-2.0 to 3.0) L 08/29/16 04:55 Chloride 112 mEq/L (98-109) H 08/29/16 06:30 Carbon Dioxide 17 mEq/L (19-29) L 08/29/16 06:30 BUN 70 mg/dL (7-20) H 08/29/16 06:30 Creatinine 2.17 mg/dL (0.57-1.11) H 08/29/16 06:30 Est GFR ( Amer) 27 (> 60) L 08/29/16 06:30 Est GFR (Non-Af Amer) 22 (> 60) L 08/29/16 06:30 BUN/Creatinine Ratio 32 (6-26) H 08/29/16 06:30 Glucose 196 mg/dL (70-99) H 08/29/16 06:30 POC Glucose 170 (58-89) H 08/29/16 06:21 Calculated Osmolality 318 (280-300) H 08/29/16 06:30 Troponin I 0.04 ng/mL (0-0.03) H* 08/26/16 21:58 C-Reactive Protein 11 mg/L (Less than 5) H 08/28/16 03:15 Albumin 3.0 g/dL (3.5-5.0) L 08/29/16 06:30 Globulin 3.6 g/dL (2.4-3.5) H 08/29/16 06:30 Albumin/Globulin Ratio 0.8 (1.1-2.2) L 08/29/16 06:30 - Microbiology Findings Microbiology Findings: Microbiology, Last 48 Hours 08/27/16 00:35 Blood Culture - Preliminary Central Venous Catheter No growth. - Clinical Findings Intake & Output: Intake & Output 08/28/16 08/29/16 08/29/16 23:59 07:59 15:59 Intake Total 161 / 161 354.6 / 354.6 Output Total 575 / 575 750 / 750 150 / 150 Balance -414 / -414 -395.4 / -395.4 -150 / -150 Weight 100.698 kg Consult Discharge Plan - Plan Referrals: Peg Gabriel, POWERHOUSE HELPER [Primary Care Provider] - - Attending Attestation I examined this patient and my medical decision-making was reviewed with the [employer]/PA/Advanced Practice Nurse/Resident Physician. I agree with the documented findings, disposition and treatment plan as described except to the extent set forth below. Patient seen and examined at bedside Labs, radiology, chart personally reviewed. All lines examined without evidence of infection. Neuro/Psych: sedated on vent.PERRL and moves when stimulated. Decrease dose of narcotic/benzo today as tolerated. Resp: Intubated for airway mngt. acceptable oxygenation on minimal vent support using approx TV 8cc/kg IBW. History of COPD schedule duonebs every 6 hours. Cardio: History of HFrEF. holding BB at present . ECHO shows EF%=50-55. Cont BB. GI: Gi prophylaxis given. NPO for now. bowel regimen given Renal: LIVIA improving (likely s/t to Hypotension). Renally dose all meds. UOP increasing. cont IV diuretic. Monitor daily renal function/lytes ID: Cultures negative elevated WBC likely s/t steroids. HEME/ONC: DVT prophylaxis given. H/H stable no evidence of coagulopathy SKIN: Skin Care per ICU protocol to prevent ulcers Allergy/Immunology: Acute angioedema improvingf tongue swelling -without urticaria suspect ACEi induced. Holding med now. had been given H1/H2 blockers given. andIV steroids will stop now. Allergy consulted -starting LTA,. ENT also consulted appreciate eval. . Code: Full updated at bedside. <Sherry Pardo - Last Filed: 08/29/16 11:03> Date of Encounter: 08/29/16 Time of Encounter: 07:19 Assessment and Plan (1) Angioedema Current Visit: Yes Status: Acute Patient admitted with severe angioedema secondary to DIANE inhibitor/ARB medication use. She was intubated in the ED (08/26/2016) for airway protection. Patient has no personal history of allergeis or angioedema. Unknown family history. She remains intubated and sedated. On exam, tongue is still swollen and protruding, but much improved from admission. C4 normal. - DIANE inhibitor and ARB have been stopped. - Patient received 2 units FFP on admission. - Patient remains intubated and sedated on fentanyl and versed. - Stop solu-medrol, benadryl, pepcid, and singular - Consult placed to ENT - Consult placed to Allergy/Immunology Qualifiers: Encounter type: initial encounter Qualified Code(s): T78.3XXA - Angioneurotic edema, initial encounter (2) Acute kidney injury Current Visit: Yes Status: Acute Acute kidney injury with decreased urine output. Today's creatinine improved at 2.17 from 2.30. UOP improved after 40mg IV lasix last night. UOP 850ml total yestarday and 750mls thus far today. Antibiotics were stopped yesterday due to poor kidney function and low suspicion for infectious cause. - Lasix 40mg IV - Monitor urine output - Monitor kidney function (3) Sick sinus syndrome Current Visit: Yes Status: Acute Patient with history of sick sinus syndrome with BV-ICD in place for CHF. Heart rate appropriate thus far, no arrhythmias. Patient is on a b-yen at home. Will restart at low dose - Monitor heart rate and rhythm - Coreg 3.125mg BIDWM (4) HTN (hypertension) Current Visit: Yes Status: Acute History of HTN on lisinopril/Entresto and carvedilol. Due to severe angioedema , patient should not be placed back on DIANE inhibitors or ARBS. Coreg was restarted yesterday at 3.125mg BIDWM. Overnight patient required hydralazine x 1 dose due to hypertension. However, with increased sedation this morning, blood pressure is back down in the 90s-100s systolic range. - Continue to monitor blood pressure - Wean sedation as tolerated - Coreg 3.125mg BIDWM Qualifiers: Hypertension type: essential hypertension Qualified Code(s): I10 - Essential (primary) hypertension (5) CAD (coronary artery disease) Current Visit: Yes Status: Acute History of CAD s/p CABG. Troponin on day for admission 0.04 likely secondary to demand ischemia from her acute illness. - Cardiac monitoring Qualifiers: Coronary Disease-Associated Artery/Lesion type: unspecified vessel or lesion type [place] vs. transplanted heart: nikolai heart Associated angina: angina presence unspecified Qualified Code(s): I25.10 - Atherosclerotic heart disease of n[place] coronary artery without angina pectoris (6) CHF (congestive heart failure) Current Visit: Yes Status: Chronic Reported history of CHF with BV-ICD in place. ECHO done this admission showed EF of 60-65% improved from 04/2015 when EF was 35-40% - Restarted Coreg at low dose - Continue to monitor fluid status Qualifiers: Congestive heart failure type: systolic Congestive heart failure chronicity : chronic Qualified Code(s): I50.22 - Chronic systolic (congestive) heart failure (7) T2DM (type 2 diabetes mellitus) Current Visit: Yes Status: Chronic History of T2DM not on any home medications. Glucose elevated, likely due in part to steroids patient is receiving. - Monitor glucose - Sliding scale insulin Qualifiers: Diabetes mellitus complication status: with unspecified complications Diabetes mellitus ocean transportation intermediary insulin use: without shelter use Qualified Code( s): E11.8 - Type 2 diabetes mellitus with unspecified complications (8) DVT prophylaxis Current Visit: Yes Status: Acute Heparin Neuro: Intubated and sedated. Titrate fentanyl and versed. Pulm: Intubated for airway protection. Vent: A/C TV400, R18, FiO2 35% and PEEP of 5.0. Cards: ECHO showed EF of 60-65%. Received 1 dose of hydralazine overnight. Blood pressure lower with increased sedation. On low does beta yen. FEN-GI: OG tube in place. Tube feeds at 45mls/hr. On pepcid for GI ppx. Start senna + BID Renal: Acute kidney injury. Isaac in place. 40mg of lasix today. Follow UOP ID: Blood cultures negative thus far. Low suspicion for infectious process. Antibiotics stopped yesterday. Heme/Onc: Recieved 2 units FFP on admission. Heparin for DVT ppx Endo: Monitor glucose. SSI Immuno: Severe angioedema likely secondary to DIANE inhibitor. 2 units FFP transfused on admission. Stop Steroids, Benadryl, Pepcid, Singular. Consult to ENT and Allergy/Immunology. C4 normal. Keep patient intubated and sedated Skin: Skin care per ICU protocol Lines: ET, OG, isaac, peripheral IV Code: Full code Dispo: ICU Subjective Principal diagnosis: Severe angioedema Interval history: No acute events overnight. Episode of hypertension requiring 1 dose of hydralazine. Sedation turned up because patient was fighting the vent. With the increased sedation, patient's blood pressure is running lower around 90-100 systolic. Patient seen and examined. Afebrile overnight with overall stable vital signs. She remains intubated and sedated with fentanyl and versed. Vent settings on A/C - RR18, TV400, FiO2 35% and PEEP 5.0. Patient's tongue remains swollen and protruding however is much improved from admission. Lungs clear to auscultation. Abdomen soft non-tender. No pedal edema. Objective PUL Vital signs: Last Vital Signs Temp 97.6 F 08/29/16 04:28 Pulse 60 08/29/16 06:00 Resp 18 08/29/16 06:00 BP 98/60 08/29/16 06:00 Pulse Ox 99 08/29/16 06:00 General appearance: no acute distress, other (Intubated and sedated) Eyes: nonicteric ENT: other (Tongue swollen and protruding, ET and OG tube in place) Neck: supple Effort: normal Auscultation: bilateral: clear Cardiovascular: regular rate and rhythm Gastrointestinal: soft, non-tender, non-distended Integumentary: normal Extremities: no cyanosis, no edema, no clubbing unable to assess due to mental status Ventilator Settings Ventilator Settings: Ventilator Settings, Last 8 Hours Ventilator Mode A/C Ventilator Mode A/C Ventilator Mode A/C Ventilator Mode A/C Ventilator Mode A/C Ventilator Mode A/C Ventilator Mode A/C Ventilator Tidal Volume 400 Setting Ventilator Tidal Volume 400 Setting Ventilator Tidal Volume 400 Setting Ventilator Tidal Volume 400 Setting Ventilator Tidal Volume 400 Setting Ventilator Tidal Volume 400 Setting Ventilator Tidal Volume 400 Setting Ventilator Respiratory Rate 18 Setting Ventilator Respiratory Rate 18 Setting Ventilator Respiratory Rate 18 Setting Ventilator Respiratory Rate 18 Setting Ventilator Respiratory Rate 18 Setting Ventilator Respiratory Rate 18 Setting Ventilator Respiratory Rate 18 Setting Actual Respiratory Rate 18 Actual Respiratory Rate 18 Actual Respiratory Rate 18 Actual Respiratory Rate 18 Actual Respiratory Rate 18 Actual Respiratory Rate 18 Actual Respiratory Rate 18 Positive End Expiratory 5 Pressure Positive End Expiratory 5 Pressure Positive End Expiratory 5 Pressure Positive End Expiratory 5 Pressure Positive End Expiratory 5 Pressure Positive End Expiratory 5 Pressure Positive End Expiratory 5 Pressure Peak Inspiratory Airway 32 Pressure Peak Inspiratory Airway 32 Pressure Peak Inspiratory Airway 32 Pressure Peak Inspiratory Airway 32 Pressure Peak Inspiratory Airway 32 Pressure Peak Inspiratory Airway 32 Pressure Peak Inspiratory Airway 32 Pressure Results - Laboratory Findings CBC and BMP: 08/29/16 07:41 08/29/16 06:30 ABG ABG pH 7.33 pH Units (7.32-7.45) 08/29/16 04:55 ABG pCO2 40 mmHg (35-45) 08/29/16 04:55 ABG pO2 343 mmHg (85-104) H 08/29/16 04:55 ABG O2 Saturation 100 % (95-98) H 08/29/16 04:55 PT/INR, D-dimer PT 12.7 Seconds (9.4-12.1) H 08/26/16 16:45 Abnormal lab findings: Abnormal lab results WBC 16.3 K/mcL (4.3-11.1) H 08/28/16 03:15 RBC 3.42 M/mcL (3.82-4.97) L 08/28/16 03:15 Hgb 9.5 g/dL (11.5-15.4) L 08/28/16 03:15 Hct 29.9 % (35.3-44.9) L 08/28/16 03:15 MCH 27.8 pg (28.0-33.3) L 08/28/16 03:15 RDW 19.9 % (11.5-14.5) H 08/28/16 03:15 Neutrophils # 14.3 K/mcL (1.6-8.9) H 08/28/16 03:15 ESR 63 mm/hr (0-15) H 08/28/16 03:15 PT 12.7 Seconds (9.4-12.1) H 08/26/16 16:45 ABG pO2 343 mmHg (85-104) H 08/29/16 04:55 ABG O2 Saturation 100 % (95-98) H 08/29/16 04:55 ABG Base Excess -4.5 mEq/L (-2.0 to 3.0) L 08/29/16 04:55 Chloride 112 mEq/L (98-109) H 08/29/16 06:30 Carbon Dioxide 17 mEq/L (19-29) L 08/29/16 06:30 BUN 70 mg/dL (7-20) H 08/29/16 06:30 Creatinine 2.17 mg/dL (0.57-1.11) H 08/29/16 06:30 Est GFR ( Amer) 27 (> 60) L 08/29/16 06:30 Est GFR (Non-Af Amer) 22 (> 60) L 08/29/16 06:30 BUN/Creatinine Ratio 32 (6-26) H 08/29/16 06:30 Glucose 196 mg/dL (70-99) H 08/29/16 06:30 POC Glucose 170 (58-89) H 08/29/16 06:21 Calculated Osmolality 318 (280-300) H 08/29/16 06:30 Troponin I 0.04 ng/mL (0-0.03) H* 08/26/16 21:58 C-Reactive Protein 11 mg/L (Less than 5) H 08/28/16 03:15 Albumin 3.0 g/dL (3.5-5.0) L 08/29/16 06:30 Globulin 3.6 g/dL (2.4-3.5) H 08/29/16 06:30 Albumin/Globulin Ratio 0.8 (1.1-2.2) L 08/29/16 06:30 - Microbiology Findings Microbiology Findings: Microbiology, Last 48 Hours 08/27/16 00:35 Blood Culture - Preliminary Central Venous Catheter No growth. - Clinical Findings Intake & Output: Intake & Output 08/28/16 08/28/16 08/29/16 15:59 23:59 07:59 Intake Total 64 / 64 161 / 161 254.6 / 254.6 Output Total 150 / 150 575 / 575 750 / 750 Balance -86 / -86 -414 / -414 -495.4 / -495.4 Weight 100.698 kg
[2016-08-29] MEDS: FentaNYL (PF) 1,000 MCG in 0.9 % Sodium Chloride 80 ML IVC SCH ×2 (07:28→19:48)
[2016-08-29 07:48] LABS: Basophils % 0.1 %; Hematocrit 33.7 % (35.3-44.9); Hemoglobin 10.5 g/dL (11.5-15.4); Immature Granulocytes % 0.5 % (0-4); Lymphocytes # 1.2 K/mcL (0.6-4.6); Lymphocytes % 7.3 %; Mean Corpuscular HGB Conc 31.2 g/dL (31.6-35.5); Mean Corpuscular Volume 89.9 fL (83.0-100.0); Mean Platelet Volume 9.7 fL (9.4-12.4); Monocytes # 1.2 K/mcL (0.0-1.3); Monocytes % 7.1 %; Neutrophils # 14.4 K/mcL (1.6-8.9); Platelet Count 303 K/mcL (140-400); Red Blood Count 3.75 M/mcL (3.82-4.97); Red Cell Distribution Width 20.4 % (11.5-14.5)
[2016-08-29] MEDS: Chlorhexidine Rinse 15 ML MOUTHWASH MM SCH ×2 (08:16→19:47)
[2016-08-29] MEDS ORDERED: Furosemide 40 MG/4 ML VIAL IVP ONE (10:26)
[2016-08-29] MEDS: Sennosides/Docusate Sodium TABLET PO SCH ×2 (11:30→19:47)
--- NOTE | 2016-08-29 11:52 | Allergy Progress Note ---
Date of Encounter: 08/29/16 Time of Encounter: 07:00 Subjective Patient reports: other Narrative: Patient remains intubated however the angioedema of tongue and lips is improving. She still has significant edema but improved from yesterday. Objective Vital Signs - Last 8 Hours Temp Pulse Resp BP Pulse Ox 08/29/16 11:21 60 08/29/16 11:17 20 101/67 97 08/29/16 11:00 97.5 F L 60 18 101/67 97 08/29/16 10:01 60 25 101/57 98 08/29/16 10:00 60 18 105/61 98 08/29/16 09:49 18 105/61 98 08/29/16 09:00 60 18 101/57 98 08/29/16 08:47 96.9 F L 08/29/16 08:09 25 116/72 100 08/29/16 08:00 60 18 101/61 98 08/29/16 07:37 25 116/72 100 08/29/16 07:35 60 08/29/16 07:00 60 18 114/66 97 08/29/16 06:00 60 18 98/60 99 08/29/16 05:00 60 18 102/61 99 08/29/16 04:28 97.6 F 08/29/16 04:00 60 18 126/65 99 Intake and Output 08/28/16 08/29/16 08/29/16 23:59 07:59 15:59 Intake Total 161 / 161 354.6 / 354.6 339 / 339 Output Total 575 / 575 750 / 750 325 / 325 Balance -414 / -414 -395.4 / -395.4 Intake: IV Fluids 100 / 100 149.6 / 149.6 FentaNYL (PF) 1,000 MCG 100 / 100 100 / 100 In 0.9 % Sodium Chloride 80 ML @ 50 MCG/HR 5 mls/ hr IVC CONT [facility] Rx#: [id number] Versed 50 MG In 0.9 % 49.6 / 49.6 Sodium Chloride 90 ML @ 4 MG/HR 8 mls/hr IVC CONT [facility] Rx#:[id number] Tube Feeding 61 / 61 205 / 205 339 / 339 Output: Catheter 575 / 575 750 / 750 325 / 325 Other: Weight 100.698 kg Blood Glucose* 157 194 177 Patient Weight 08/29/16 23:59 Weight 100.698 kg - General physical appearance other (sedated, intubated) - ENT Other (tongue is still edematous and protuding however less than yesterday. Her lips and neck appear less edematous today also) - Labs 08/29/16 07:41 08/29/16 06:30 Diabetes panel 08/28/16 08/29/16 Range/Units 21:38 06:30 Sodium 140 141 (136-145) mEq/L Potassium 4.3 4.3 (3.5-4.5) mEq/L Chloride 111 H 112 H (98-109) mEq/L Carbon Dioxide 17 L 17 L (19-29) mEq/L BUN 65 H D 70 H (7-20) mg/dL Creatinine 2.30 H 2.17 H (0.57-1.11) mg/dL Glucose 187 H 196 H (70-99) mg/dL Calcium 9.0 9.0 (8.6-10.8) mg/dL AST 27 (5-34) Units/L ALT 37 (0-55) Units/L Alkaline Phosphatase 96 (38-126) Units/L Albumin 3.0 L (3.5-5.0) g/dL Calcium panel 08/28/16 08/29/16 Range/Units 21:38 06:30 Calcium 9.0 9.0 (8.6-10.8) mg/dL Albumin 3.0 L (3.5-5.0) g/dL Pituitary panel 08/28/16 08/29/16 Range/Units 21:38 06:30 Sodium 140 141 (136-145) mEq/L Potassium 4.3 4.3 (3.5-4.5) mEq/L Chloride 111 H 112 H (98-109) mEq/L Carbon Dioxide 17 L 17 L (19-29) mEq/L BUN 65 H D 70 H (7-20) mg/dL Creatinine 2.30 H 2.17 H (0.57-1.11) mg/dL Glucose 187 H 196 H (70-99) mg/dL Calcium 9.0 9.0 (8.6-10.8) mg/dL Adrenal panel 08/28/16 08/29/16 Range/Units 21:38 06:30 Sodium 140 141 (136-145) mEq/L Potassium 4.3 4.3 (3.5-4.5) mEq/L Chloride 111 H 112 H (98-109) mEq/L Carbon Dioxide 17 L 17 L (19-29) mEq/L BUN 65 H D 70 H (7-20) mg/dL Creatinine 2.30 H 2.17 H (0.57-1.11) mg/dL Glucose 187 H 196 H (70-99) mg/dL Calcium 9.0 9.0 (8.6-10.8) mg/dL Total Bilirubin 0.3 (0.2-1.2) mg/dL AST 27 (5-34) Units/L ALT 37 (0-55) Units/L Alkaline Phosphatase 96 (38-126) Units/L Albumin 3.0 L (3.5-5.0) g/dL - Assessment and Plan (1) Angioedema Current Visit: Yes Status: Acute Patient is a 75 year old female pmhx HTN, CAD, CABG, CHF, DM2, Sick sinus syndrome s/p AICD placement with angioedema without urticaria of lips and tongue. I believe this was drug induced secondary to DIANE inhibitor or ARB or both. Patient's C4 is normal. Patient is slowly improving yet not ready for extubation at this time. 1. Continue current treatment and monitor 2. Avoid DIANE inhibitor and ARB for rest of life 3. I will follow up with patient on Thursday and if extubated I will answer any questions she may have about this reaction. Qualifiers: Encounter type: subsequent encounter Qualified Code(s): T78.3XXD - Angioneurotic edema, subsequent encounter Consult Discharge Plan - Plan Referrals: Peg Gabriel CNP [Primary Care Provider] -
[2016-08-29 14:41] LABS: Calcium 8.9 mg/dL (8.6-10.8); Potassium 4.4 mEq/L (3.5-4.5)
[2016-08-29 18:16] LABS: Magnesium 2.3 mg/dL (1.6-2.6)
[2016-08-30] MEDS: FentaNYL (PF) 1,000 MCG in 0.9 % Sodium Chloride 80 ML IVC SCH (02:30)
[2016-08-30 03:09] LABS: Basophils % 0.1 %; Eosinophils % 0.2 %; Hematocrit 30.7 % (35.3-44.9); Hemoglobin 9.6 g/dL (11.5-15.4); Immature Granulocytes % 0.5 % (0-4); Lymphocytes # 1.6 K/mcL (0.6-4.6); Lymphocytes % 13.1 %; Mean Corpuscular HGB Conc 31.3 g/dL (31.6-35.5); Mean Corpuscular Hemoglobin 27.5 pg (28.0-33.3); Mean Platelet Volume 9.7 fL (9.4-12.4); Monocytes # 1.3 K/mcL (0.0-1.3); Platelet Count 268 K/mcL (140-400); Red Blood Count 3.49 M/mcL (3.82-4.97); Red Cell Distribution Width 20.7 % (11.5-14.5); Segmented Neutrophils % 75.1 %
[2016-08-30 03:13] LABS: Ionized Calcium 1.14 mmol/L (1.15-1.35)
[2016-08-30 03:23] LABS: Albumin/Globulin Ratio 0.9 (1.1-2.2); Bilirubin,Total 0.4 mg/dL (0.2-1.2); Calcium 8.8 mg/dL (8.6-10.8); Globulin 3.4 g/dL (2.4-3.5); Magnesium 2.1 mg/dL (1.6-2.6); Phosphorous 3.1 mg/dL (2.3-4.7); Potassium 3.8 mEq/L (3.5-4.5); Total Protein 6.4 g/dL (6.0-8.3)
[2016-08-30 05:06] LABS: ABG Base Excess 0.2 mEq/L (-2.0 to 3.0); ABG HCO3 24.6 mEQ/L (21-27); ABG Oxygen Saturation 98 % (95-98); ABG PCO2 38 mmHg (35-45); ABG PH 7.42 pH Units (7.32-7.45); ABG PO2 107 mmHg (85-104); ABG TCO2 25.8 mEq/L (20-26)
[2016-08-30 05:07] LABS: Blood Gas FiO2 35 %
[2016-08-30] MEDS: *HR* Heparin 5,000 UNIT/ML VIAL SQ SCH ×2 (05:38→17:03)
[2016-08-30] MEDS: Famotidine 20 MG/2 ML VIAL IVP SCH ×2 (05:38→20:19)
[2016-08-30] MEDS: Lacri-Lube 3.5 GM TUBE BOTH EYES SCH ×3 (05:39→12:22)
[2016-08-30] MEDS: Insulin LISPRO 300 UNITS/3 ML VIAL SQ SCH ×3 (05:41→20:10)
--- NOTE | 2016-08-30 06:33 | Pulmonology Progress Note ---
<SherylDanteMatt W - Last Filed: 08/30/16 09:34> Date of Encounter: 08/30/16 Objective PUL Vital signs: Last Vital Signs Temp 98.5 F 08/30/16 03:14 Pulse 61 08/30/16 06:08 Resp 18 08/30/16 07:41 BP 106/61 08/30/16 07:41 Pulse Ox 98 08/30/16 07:41 Ventilator Settings Ventilator Settings: Ventilator Settings, Last 8 Hours Ventilator Mode A/C Ventilator Mode A/C Ventilator Mode A/C Ventilator Mode A/C Ventilator Mode A/C Ventilator Mode A/C Ventilator Mode A/C Ventilator Mode A/C Ventilator Mode A/C Ventilator Mode A/C Ventilator Mode A/C Ventilator Tidal Volume 400 Setting Ventilator Tidal Volume 400 Setting Ventilator Tidal Volume 400 Setting Ventilator Tidal Volume 400 Setting Ventilator Tidal Volume 400 Setting Ventilator Tidal Volume 400 Setting Ventilator Tidal Volume 400 Setting Ventilator Tidal Volume 400 Setting Ventilator Tidal Volume 400 Setting Ventilator Tidal Volume 400 Setting Ventilator Tidal Volume 400 Setting Ventilator Respiratory Rate 18 Setting Ventilator Respiratory Rate 18 Setting Ventilator Respiratory Rate 18 Setting Ventilator Respiratory Rate 18 Setting Ventilator Respiratory Rate 18 Setting Ventilator Respiratory Rate 18 Setting Ventilator Respiratory Rate 18 Setting Ventilator Respiratory Rate 18 Setting Ventilator Respiratory Rate 18 Setting Ventilator Respiratory Rate 18 Setting Ventilator Respiratory Rate 18 Setting Actual Respiratory Rate 18 Actual Respiratory Rate 18 Actual Respiratory Rate 18 Actual Respiratory Rate 18 Actual Respiratory Rate 18 Actual Respiratory Rate 18 Actual Respiratory Rate 18 Actual Respiratory Rate 18 Actual Respiratory Rate 18 Actual Respiratory Rate 18 Positive End Expiratory 5 Pressure Positive End Expiratory 5 Pressure Positive End Expiratory 5 Pressure Positive End Expiratory 5 Pressure Positive End Expiratory 5 Pressure Positive End Expiratory 5 Pressure Positive End Expiratory 5 Pressure Positive End Expiratory 5 Pressure Positive End Expiratory 5 Pressure Positive End Expiratory 5 Pressure Positive End Expiratory 5 Pressure Peak Inspiratory Airway 35 Pressure Peak Inspiratory Airway 32 Pressure Peak Inspiratory Airway 33 Pressure Peak Inspiratory Airway 33 Pressure Peak Inspiratory Airway 33 Pressure Peak Inspiratory Airway 33 Pressure Peak Inspiratory Airway 35 Pressure Results - Laboratory Findings CBC and BMP: 08/30/16 03:00 08/30/16 03:00 ABG ABG pH 7.42 pH Units (7.32-7.45) 08/30/16 04:58 ABG pCO2 38 mmHg (35-45) 08/30/16 04:58 ABG pO2 107 mmHg (85-104) H 08/30/16 04:58 ABG O2 Saturation 98 % (95-98) 08/30/16 04:58 PT/INR, D-dimer PT 12.7 Seconds (9.4-12.1) H 08/26/16 16:45 Abnormal lab findings: Abnormal lab results WBC 12.0 K/mcL (4.3-11.1) H 08/30/16 03:00 RBC 3.49 M/mcL (3.82-4.97) L 08/30/16 03:00 Hgb 9.6 g/dL (11.5-15.4) L 08/30/16 03:00 Hct 30.7 % (35.3-44.9) L 08/30/16 03:00 MCH 27.5 pg (28.0-33.3) L 08/30/16 03:00 MCHC 31.3 g/dL (31.6-35.5) L 08/30/16 03:00 RDW 20.7 % (11.5-14.5) H 08/30/16 03:00 Neutrophils # 9.0 K/mcL (1.6-8.9) H 08/30/16 03:00 ESR 63 mm/hr (0-15) H 08/28/16 03:15 PT 12.7 Seconds (9.4-12.1) H 08/26/16 16:45 ABG pO2 107 mmHg (85-104) H 08/30/16 04:58 Chloride 112 mEq/L (98-109) H 08/30/16 03:00 BUN 81 mg/dL (7-20) H 08/30/16 03:00 Creatinine 1.76 mg/dL (0.57-1.11) H 08/30/16 03:00 Est GFR ( Amer) 34 (> 60) L 08/30/16 03:00 Est GFR (Non-Af Amer) 28 (> 60) L 08/30/16 03:00 BUN/Creatinine Ratio 46 (6-26) H 08/30/16 03:00 Glucose 141 mg/dL (70-99) H 08/30/16 03:00 POC Glucose 161 (58-89) H 08/30/16 05:36 Calculated Osmolality 321 (280-300) H 08/30/16 03:00 Ionized Calcium 1.14 mmol/L (1.15-1.35) L 08/30/16 03:00 Troponin I 0.04 ng/mL (0-0.03) H* 08/26/16 21:58 C-Reactive Protein 11 mg/L (Less than 5) H 08/28/16 03:15 Albumin 3.0 g/dL (3.5-5.0) L 08/30/16 03:00 Albumin/Globulin Ratio 0.9 (1.1-2.2) L 08/30/16 03:00 - Microbiology Findings Microbiology Findings: Microbiology, Last 48 Hours 08/27/16 00:35 Blood Culture - Preliminary Central Venous Catheter No growth. - Clinical Findings Intake & Output: Intake & Output 08/29/16 08/30/16 08/30/16 23:59 07:59 15:59 Intake Total 580 / 580 299 / 299 Output Total 600 / 600 175 / 175 Balance - 124 / 124 Weight 82 kg Consult Discharge Plan - Plan Referrals: Peg Gabriel B[employer]ER [Primary Care Provider] - - Attending Attestation I examined this patient and my medical decision-making was reviewed with the MIXER SLAGMAN/PA/Advanced Practice Nurse/Resident Physician. I agree with the documented findings, disposition and treatment plan as described except to the extent set forth below. Patient seen and examined at bedside Labs, radiology, chart personally reviewed. All lines examined without evidence of infection. Neuro/Psych: sedated on vent.PERRL and moves when stimulated. Sedation holiday today with nurse at bedside Resp: Intubated for airway mngt. acceptable oxygenation on minimal vent support using approx TV 8cc/kg IBW. History of COPD schedule duonebs every 6 hours. Spontaneous breathing trial later in the day currently not eligible for extubation but would benefit from daily SBT Cardio: History of HFrEF. holding BB at present . ECHO shows EF%=50-55. Cont BB and scheduled diuretic. Lifelong avoidance of Hira inhibitor/angiotensin receptor yen GI: Gi prophylaxis given. Continue enteral nutrition .bowel regimen given that she has noted to have several bowel movements Renal: LIVIA improving Renally dose all meds. Monitor daily renal function/lytes ID: Cultures negative elevated WBC likely s/t steroids. HEME/ONC: DVT prophylaxis given. H/H stable no evidence of coagulopathy SKIN: Skin Care per ICU protocol to prevent ulcers Allergy/Immunology: Acute angioedema improving tongue swelling suspect ACEi induced. Holding med now. had been given H1/H2 blockers given. andIV steroids no held. appreciate ENT/Allergy recs. Code: Full <Sherry Pardo - Last Filed: 08/30/16 10:50> Date of Encounter: 08/30/16 Time of Encounter: 06:33 Assessment and Plan (1) Angioedema Current Visit: Yes Status: Acute Patient admitted with severe angioedema secondary to HIRA inhibitor/ARB medication use. She was intubated in the ED (08/26/2016) for airway protection. Patient has no personal history of allergeis or angioedema. Unknown family history. She remains intubated and sedated. On exam, tongue is still swollen and protruding, but much improved from admission. C4 normal. - HIRA inhibitor and ARB have been stopped. - Patient received 2 units FFP on admission. - Received solu-medrol, benadryl, pepcid, and singular - Patient remains intubated and sedated on fentanyl and versed. - Consult placed to ENT - Consult placed to Allergy/Immunology Qualifiers: Encounter type: initial encounter Qualified Code(s): T78.3XXA - Angioneurotic edema, initial encounter (2) Acute kidney injury Current Visit: Yes Status: Acute Acute kidney injury with decreased urine output likely secondary to hypotension on admission. Today's creatinine improved at 1.76 from 2.17. UOP improved after 40mg IV lasix yesterdau. UOP 2025ml total yestarday and 175mls thus far today. - Avoid nephrotoxic drugs if possible and renally dose any meds - Monitor urine output - Monitor kidney function (3) Sick sinus syndrome Current Visit: Yes Status: Acute Patient with history of sick sinus syndrome with BV-ICD in place for CHF. Heart rate appropriate thus far, no arrhythmias. Patient is on a B-yen at home. Restarted at low dose - Monitor heart rate and rhythm - Coreg 3.125mg BIDWM (4) HTN (hypertension) Current Visit: Yes Status: Acute History of HTN on lisinopril/Entresto and carvedilol. Due to severe angioedema , patient should not be placed back on HIRA inhibitors or ARBS. Coreg was restarted yesterday at 3.125mg BIDWM. Blood pressures ranging 90-120/60s with sedation. - Continue to monitor blood pressure - Wean sedation as tolerated - Coreg 3.125mg BIDWM Qualifiers: Hypertension type: essential hypertension Qualified Code(s): I10 - Essential (primary) hypertension (5) CAD (coronary artery disease) Current Visit: Yes Status: Acute History of CAD s/p CABG. Troponin on day for admission 0.04 likely secondary to demand ischemia from her acute illness. - Cardiac monitoring Qualifiers: Coronary Disease-Associated Artery/Lesion type: unspecified vessel or lesion type [place] vs. transplanted heart: grindstone heart Associated angina: angina presence unspecified Qualified Code(s): I25.10 - Atherosclerotic heart disease of [place] coronary artery without angina pectoris (6) CHF (congestive heart failure) Current Visit: Yes Status: Chronic Reported history of CHF with BV-ICD in place. ECHO done this admission showed EF of 60-65% improved from 04/2015 when EF was 35-40%. Patient is on a B- yen at home. Restarted at low dose - Coreg 3.0125mg BIDWM - Continue to monitor fluid status Qualifiers: Congestive heart failure type: systolic Congestive heart failure chronicity : chronic Qualified Code(s): I50.22 - Chronic systolic (congestive) heart failure (7) T2DM (type 2 diabetes mellitus) Current Visit: Yes Status: Chronic History of T2DM not on any home medications. Glucose elevated, likely due in part to steroids patient is receiving. - Monitor glucose - Sliding scale insulin Qualifiers: Diabetes mellitus complication status: with unspecified complications Diabetes mellitus mcfp insulin use: without terminal press operator use Qualified Code( s): E11.8 - Type 2 diabetes mellitus with unspecified complications (8) DVT prophylaxis Current Visit: Yes Status: Acute Heparin Neuro: Intubated and sedated. Daily sedation holiday with close monitoring Pulm: Intubated for airway protection. SBT with close monitoring Vent: A/C TV400, R18, FiO2 35% and PEEP of 5.0. Cards: ECHO showed EF of 60-65%. On low does beta yen. FEN-GI: OG tube in place. Tube feeds at goal of 55mls/hr. Lasix 40mg IV daily. On pepcid for GI ppx. BM yesterday Renal: Acute kidney injury - improving. Isaac in place. Continue IV lasix. Follow UOP ID: Blood cultures negative thus far. Low suspicion for infectious process. Heme/Onc: Recieved 2 units FFP on admission. Heparin for DVT ppx Endo: Monitor glucose. SSI Immuno: Severe angioedema likely secondary to HIRA inhibitor. 2 units FFP transfused on admission. Received Steroids, Benadryl, Pepcid, Singular. Consult to ENT and Allergy/Immunology. C4 normal. Keep patient intubated and sedated as swelling improves Skin: Skin care per ICU protocol Lines: ET, OG, isaac, peripheral IV Code: Full code Dispo: ICU Subjective Principal diagnosis: Severe angioedema Interval history: No acute events overnight. Patient seen and examined. Afebrile overnight with overall stable vital signs. She remains intubated and sedated with fentanyl and versed. Vent settings on A/C - RR18, TV400, FiO2 35% and PEEP 5.0. UOP increased with 40mg IV lasix - 2025mg yesterday. Patient's tongue remains swollen and protruding however is much improved from admission. Lungs clear to auscultation. Abdomen soft non-tender. No pedal edema. Objective PUL Vital signs: Last Vital Signs Temp 98.5 F 08/30/16 03:14 Pulse 61 08/30/16 06:08 Resp 18 08/30/16 06:08 BP 128/64 08/30/16 06:08 Pulse Ox 97 08/30/16 06:08 General appearance: no acute distress, other (Intubated and sedated) Eyes: nonicteric ENT: other (Tongue swollen and protruding) Effort: normal Auscultation: bilateral: clear Cardiovascular: regular rate and rhythm Gastrointestinal: soft, non-tender, non-distended Extremities: no cyanosis, no edema unable to assess due to mental status Ventilator Settings Ventilator Settings: Ventilator Settings, Last 8 Hours Ventilator Mode A/C Ventilator Mode A/C Ventilator Mode A/C Ventilator Mode A/C Ventilator Mode A/C Ventilator Mode A/C Ventilator Mode A/C Ventilator Mode A/C Ventilator Mode A/C Ventilator Mode A/C Ventilator Mode A/C Ventilator Mode A/C Ventilator Mode A/C Ventilator Tidal Volume 400 Setting Ventilator Tidal Volume 400 Setting Ventilator Tidal Volume 400 Setting Ventilator Tidal Volume 400 Setting Ventilator Tidal Volume 400 Setting Ventilator Tidal Volume 400 Setting Ventilator Tidal Volume 400 Setting Ventilator Tidal Volume 400 Setting Ventilator Tidal Volume 400 Setting Ventilator Tidal Volume 400 Setting Ventilator Tidal Volume 400 Setting Ventilator Tidal Volume 400 Setting Ventilator Tidal Volume 400 Setting Ventilator Respiratory Rate 18 Setting Ventilator Respiratory Rate 18 Setting Ventilator Respiratory Rate 18 Setting Ventilator Respiratory Rate 18 Setting Ventilator Respiratory Rate 18 Setting Ventilator Respiratory Rate 18 Setting Ventilator Respiratory Rate 18 Setting Ventilator Respiratory Rate 18 Setting Ventilator Respiratory Rate 18 Setting Ventilator Respiratory Rate 18 Setting Ventilator Respiratory Rate 18 Setting Ventilator Respiratory Rate 18 Setting Ventilator Respiratory Rate 18 Setting Actual Respiratory Rate 18 Actual Respiratory Rate 18 Actual Respiratory Rate 18 Actual Respiratory Rate 18 Actual Respiratory Rate 18 Actual Respiratory Rate 18 Actual Respiratory Rate 18 Actual Respiratory Rate 18 Actual Respiratory Rate 18 Actual Respiratory Rate 18 Actual Respiratory Rate 18 Actual Respiratory Rate 18 Positive End Expiratory 5 Pressure Positive End Expiratory 5 Pressure Positive End Expiratory 5 Pressure Positive End Expiratory 5 Pressure Positive End Expiratory 5 Pressure Positive End Expiratory 5 Pressure Positive End Expiratory 5 Pressure Positive End Expiratory 5 Pressure Positive End Expiratory 5 Pressure Positive End Expiratory 5 Pressure Positive End Expiratory 5 Pressure Positive End Expiratory 5 Pressure Positive End Expiratory 5 Pressure Peak Inspiratory Airway 32 Pressure Peak Inspiratory Airway 33 Pressure Peak Inspiratory Airway 33 Pressure Peak Inspiratory Airway 33 Pressure Peak Inspiratory Airway 33 Pressure Peak Inspiratory Airway 35 Pressure Peak Inspiratory Airway 36 Pressure Peak Inspiratory Airway 38 Pressure Peak Inspiratory Airway 38 Pressure Results - Laboratory Findings CBC and BMP: 08/30/16 03:00 08/30/16 03:00 ABG ABG pH 7.42 pH Units (7.32-7.45) 08/30/16 04:58 ABG pCO2 38 mmHg (35-45) 08/30/16 04:58 ABG pO2 107 mmHg (85-104) H 08/30/16 04:58 ABG O2 Saturation 98 % (95-98) 08/30/16 04:58 PT/INR, D-dimer PT 12.7 Seconds (9.4-12.1) H 08/26/16 16:45 Abnormal lab findings: Abnormal lab results WBC 12.0 K/mcL (4.3-11.1) H 08/30/16 03:00 RBC 3.49 M/mcL (3.82-4.97) L 08/30/16 03:00 Hgb 9.6 g/dL (11.5-15.4) L 08/30/16 03:00 Hct 30.7 % (35.3-44.9) L 08/30/16 03:00 MCH 27.5 pg (28.0-33.3) L 08/30/16 03:00 MCHC 31.3 g/dL (31.6-35.5) L 08/30/16 03:00 RDW 20.7 % (11.5-14.5) H 08/30/16 03:00 Neutrophils # 9.0 K/mcL (1.6-8.9) H 08/30/16 03:00 ESR 63 mm/hr (0-15) H 08/28/16 03:15 PT 12.7 Seconds (9.4-12.1) H 08/26/16 16:45 ABG pO2 107 mmHg (85-104) H 08/30/16 04:58 Chloride 112 mEq/L (98-109) H 08/30/16 03:00 BUN 81 mg/dL (7-20) H 08/30/16 03:00 Creatinine 1.76 mg/dL (0.57-1.11) H 08/30/16 03:00 Est GFR ( Amer) 34 (> 60) L 08/30/16 03:00 Est GFR (Non-Af Amer) 28 (> 60) L 08/30/16 03:00 BUN/Creatinine Ratio 46 (6-26) H 08/30/16 03:00 Glucose 141 mg/dL (70-99) H 08/30/16 03:00 POC Glucose 161 (58-89) H 08/30/16 05:36 Calculated Osmolality 321 (280-300) H 08/30/16 03:00 Ionized Calcium 1.14 mmol/L (1.15-1.35) L 08/30/16 03:00 Troponin I 0.04 ng/mL (0-0.03) H* 08/26/16 21:58 C-Reactive Protein 11 mg/L (Less than 5) H 08/28/16 03:15 Albumin 3.0 g/dL (3.5-5.0) L 08/30/16 03:00 Albumin/Globulin Ratio 0.9 (1.1-2.2) L 08/30/16 03:00 - Microbiology Findings Microbiology Findings: Microbiology, Last 48 Hours 08/27/16 00:35 Blood Culture - Preliminary Central Venous Catheter No growth. - Clinical Findings Intake & Output: Intake & Output 08/29/16 08/29/16 08/30/16 15:59 23:59 07:59 Intake Total 439 / 439 580 / 580 299 / 299 Output Total 675 / 675 600 / 600 175 / 175 Balance -236 / -236 -20 / -20 124 / 124 Weight 82 kg
[2016-08-30] MEDS: Sennosides/Docusate Sodium TABLET PO SCH ×2 (09:00→20:08)
[2016-08-30] MEDS: Chlorhexidine Rinse 15 ML MOUTHWASH MM SCH ×2 (09:00→20:07)
[2016-08-30] MEDS: Furosemide 40 MG/4 ML VIAL IVP SCH (12:21)
[2016-08-31] MEDS: Insulin LISPRO 300 UNITS/3 ML VIAL SQ SCH ×5 (01:25→23:46)
[2016-08-31 02:58] LABS: Basophils % 0.2 %; Eosinophils # 0.2 K/mcL (0.0-0.6); Eosinophils % 1.5 %; Hemoglobin 10.3 g/dL (11.5-15.4); Immature Granulocytes % 0.4 % (0-4); Lymphocytes # 1.6 K/mcL (0.6-4.6); Lymphocytes % 14.4 %; Mean Corpuscular HGB Conc 32.2 g/dL (31.6-35.5); Mean Corpuscular Hemoglobin 28.1 pg (28.0-33.3); Mean Corpuscular Volume 87.4 fL (83.0-100.0); Mean Platelet Volume 9.7 fL (9.4-12.4); Monocytes # 1.3 K/mcL (0.0-1.3); Monocytes % 11.7 %; Neutrophils # 8.1 K/mcL (1.6-8.9); Platelet Count 292 K/mcL (140-400); Red Blood Count 3.66 M/mcL (3.82-4.97); Red Cell Distribution Width 20.6 % (11.5-14.5); Segmented Neutrophils % 71.8 %
[2016-08-31 03:07] LABS: Ionized Calcium 1.18 mmol/L (1.15-1.35)
[2016-08-31 03:19] LABS: Calcium 9.3 mg/dL (8.6-10.8); Phosphorous 2.9 mg/dL (2.3-4.7); Potassium 4.2 mEq/L (3.5-4.5)
[2016-08-31] MEDS: Famotidine 20 MG/2 ML VIAL IVP SCH ×2 (04:44→18:03)
[2016-08-31] MEDS: *HR* Heparin 5,000 UNIT/ML VIAL SQ SCH ×2 (04:48→18:12)
[2016-08-31] MEDS: Lacri-Lube 3.5 GM TUBE BOTH EYES SCH ×7 (06:58→23:45)
--- NOTE | 2016-08-31 07:37 | Pulmonology Progress Note ---
<SherylJerrys W - Last Filed: 08/31/16 09:50> Date of Encounter: 08/31/16 Objective PUL Vital signs: Last Vital Signs Temp 98.7 F 08/31/16 08:41 Pulse 69 08/31/16 08:46 Resp 16 08/31/16 09:37 BP 153/77 08/31/16 09:37 Pulse Ox 96 08/31/16 09:37 Ventilator Settings Ventilator Settings: Ventilator Settings, Last 8 Hours Ventilator Mode CPAP Ventilator Mode CPAP Ventilator Mode CPAP Ventilator Mode CPAP Ventilator Mode CPAP Ventilator Mode CPAP Ventilator Mode A/C Ventilator Mode A/C Ventilator Mode A/C Ventilator Mode A/C Ventilator Mode A/C Ventilator Mode A/C Ventilator Tidal Volume 400 Setting Ventilator Tidal Volume 400 Setting Ventilator Tidal Volume 400 Setting Ventilator Tidal Volume 400 Setting Ventilator Tidal Volume 400 Setting Ventilator Tidal Volume 400 Setting Ventilator Tidal Volume 400 Setting Ventilator Tidal Volume 400 Setting Ventilator Tidal Volume 400 Setting Ventilator Respiratory Rate 16 Setting Ventilator Respiratory Rate 16 Setting Ventilator Respiratory Rate 16 Setting Ventilator Respiratory Rate 16 Setting Ventilator Respiratory Rate 16 Setting Ventilator Respiratory Rate 16 Setting Ventilator Respiratory Rate 16 Setting Actual Respiratory Rate 16 Actual Respiratory Rate 16 Actual Respiratory Rate 13 Actual Respiratory Rate 13 Actual Respiratory Rate 16 Actual Respiratory Rate 16 Actual Respiratory Rate 16 Actual Respiratory Rate 16 Positive End Expiratory 5 Pressure Positive End Expiratory 5 Pressure Positive End Expiratory 5 Pressure Positive End Expiratory 5 Pressure Positive End Expiratory 5 Pressure Positive End Expiratory 5 Pressure Positive End Expiratory 5 Pressure Positive End Expiratory 5 Pressure Positive End Expiratory 5 Pressure Positive End Expiratory 5 Pressure Positive End Expiratory 5 Pressure Positive End Expiratory 5 Pressure Peak Inspiratory Airway 39 Pressure Peak Inspiratory Airway 15 Pressure Peak Inspiratory Airway 16 Pressure Peak Inspiratory Airway 16 Pressure Peak Inspiratory Airway 15 Pressure Peak Inspiratory Airway 15 Pressure Peak Inspiratory Airway 37 Pressure Peak Inspiratory Airway 35 Pressure Results - Laboratory Findings CBC and BMP: 08/31/16 02:46 08/31/16 02:46 ABG ABG pH 7.42 pH Units (7.32-7.45) 08/30/16 04:58 ABG pCO2 38 mmHg (35-45) 08/30/16 04:58 ABG pO2 107 mmHg (85-104) H 08/30/16 04:58 ABG O2 Saturation 98 % (95-98) 08/30/16 04:58 PT/INR, D-dimer PT 12.7 Seconds (9.4-12.1) H 08/26/16 16:45 Abnormal lab findings: Abnormal lab results WBC 11.2 K/mcL (4.3-11.1) H 08/31/16 02:46 RBC 3.66 M/mcL (3.82-4.97) L 08/31/16 02:46 Hgb 10.3 g/dL (11.5-15.4) L 08/31/16 02:46 Hct 32.0 % (35.3-44.9) L 08/31/16 02:46 RDW 20.6 % (11.5-14.5) H 08/31/16 02:46 ESR 63 mm/hr (0-15) H 08/28/16 03:15 PT 12.7 Seconds (9.4-12.1) H 08/26/16 16:45 ABG pO2 107 mmHg (85-104) H 08/30/16 04:58 BUN 71 mg/dL (7-20) H 08/31/16 02:46 Creatinine 1.24 mg/dL (0.57-1.11) H 08/31/16 02:46 Est GFR ( Amer) 51 (> 60) L 08/31/16 02:46 Est GFR (Non-Af Amer) 42 (> 60) L 08/31/16 02:46 BUN/Creatinine Ratio 57 (6-26) H 08/31/16 02:46 Glucose 220 mg/dL (70-99) H 08/31/16 02:46 POC Glucose 196 (58-89) H 08/31/16 04:13 Calculated Osmolality 326 (280-300) H 08/31/16 02:46 Troponin I 0.04 ng/mL (0-0.03) H* 08/26/16 21:58 C-Reactive Protein 11 mg/L (Less than 5) H 08/28/16 03:15 Albumin 3.0 g/dL (3.5-5.0) L 08/30/16 03:00 Albumin/Globulin Ratio 0.9 (1.1-2.2) L 08/30/16 03:00 - Clinical Findings Intake & Output: Intake & Output 08/30/16 08/31/16 08/31/16 23:59 07:59 15:59 Intake Total 336 / 336 225 / 225 100 / 100 Output Total 1500 / 1500 850 / 850 425 / 425 Balance -1164 / -1164 -625 / -625 -325 / -325 Consult Discharge Plan - Plan Referrals: Peg Gabriel, PROFESSIONAL NURSING TUTOR [Primary Care Provider] - - Attending Attestation I examined this patient and my medical decision-making was reviewed with the HIGH LIGHTER/PA/Advanced Practice Nurse/Resident Physician. I agree with the documented findings, disposition and treatment plan as described except to the extent set forth below. Patient seen and examined at bedside Labs, radiology, chart personally reviewed. All lines examined without evidence of infection. Neuropsych: Off sedation moves all extremities follow simple commands continue low-dose narcotic infusion/intermittent boluses as needed for pain and agitation daily sedation holiday Pulm: In today for airway management except low oxygenation on current vent settings which are quite has done well on spontaneous breathing trial/CPAP but does not have an air leak secondary to angioedema we will continue to evaluate daily for this Cards: History of heart failure with reduced ejection fraction intermittent periods of hypertension will titrate beta yen and can schedule hydralazine if needed for hypertension. Continue scheduled daily diuretic for goal slightly minute negative in preparation of liberation from the ventilator FEN-GI: Continue enteral feedings and ppi prophylaxis Renal: A cat resolving good urine output continue to trend renal funtion/ electrolytes daily and replace per protocol ID: Persistent leukocytosis which may be secondary to steroid use we will continue to monitor culture if febrile doubt sepsis currently Heme/Onc: DVT prophylaxis given Endo: Glucose monitored Integ/MSK: Skin care per ICU protocol to prevent ulcers Allergy/Immunology: Angioedema likely secondary to DIANE inhibitor use improving allergy/immunology and ENT both been consult appreciated their recs CODE: Full <Sherry Pardo - Last Filed: 08/31/16 11:00> Date of Encounter: 08/31/16 Time of Encounter: 07:37 Assessment and Plan (1) Angioedema Current Visit: Yes Status: Acute Patient admitted with severe angioedema secondary to DIANE inhibitor/ARB medication use. She was intubated in the ED (08/26/2016) for airway protection. Patient has no personal history of allergeis or angioedema. Unknown family history. She remains intubated and sedated. On exam, tongue and lips are swollen but much improved from admission. C4 normal. - DIANE inhibitor and ARB have been stopped. - Patient received 2 units FFP on admission. - Received solu-medrol, benadryl, pepcid, and singular - Patient remains intubated and sedated on fentanyl and versed. - Consult placed to ENT - Consult placed to Allergy/Immunology Qualifiers: Encounter type: initial encounter Qualified Code(s): T78.3XXA - Angioneurotic edema, initial encounter (2) Acute kidney injury Current Visit: Yes Status: Acute Acute kidney injury with decreased urine output likely secondary to hypotension on admission. Today's creatinine improved at 1.24 from 1.76. UOP excellent with IV lasix yesterday. - Switch IV lasix to PO lasix. - Avoid nephrotoxic drugs if possible and renally dose any meds - Monitor urine output - Monitor kidney function (3) Sick sinus syndrome Current Visit: Yes Status: Acute Patient with history of sick sinus syndrome with BV-ICD in place for CHF. Heart rate appropriate thus far, no arrhythmias. Patient is on a B-yen at home. Coreg started at 3.125mg BID, increased to 6.25mg - Monitor heart rate and rhythm - Increase coreg to 6.25mg BIDWM (4) HTN (hypertension) Current Visit: Yes Status: Acute History of HTN on lisinopril/Entresto and carvedilol. Due to severe angioedema , patient should not be placed back on DIANE inhibitors or ARBS. Blood pressures overnight elevated during CPAP trial. Coreg started at 3.125mg BID, increased to 6.25mg. - Continue to monitor blood pressure - Wean sedation as tolerated - Increased Cored to 6.25mg BIDWM Qualifiers: Hypertension type: essential hypertension Qualified Code(s): I10 - Essential (primary) hypertension (5) CAD (coronary artery disease) Current Visit: Yes Status: Acute History of CAD s/p CABG. Troponin on day for admission 0.04 likely secondary to demand ischemia from her acute illness. - Cardiac monitoring Qualifiers: Coronary Disease-Associated Artery/Lesion type: unspecified vessel or lesion type [place] vs. transplanted heart: [place] heart Associated angina: angina presence unspecified Qualified Code(s): I25.10 - Atherosclerotic heart disease of [place] coronary artery without angina pectoris (6) CHF (congestive heart failure) Current Visit: Yes Status: Chronic Reported history of CHF with BV-ICD in place. ECHO done this admission showed EF of 60-65% improved from 04/2015 when EF was 35-40%. Patient is on a B- yen at home. Coreg started at 3.125mg BID, increased to 6.25mg - Increased Coreg 6.25mg BIDWM - Continue to monitor fluid status Qualifiers: Congestive heart failure type: systolic Congestive heart failure chronicity : chronic Qualified Code(s): I50.22 - Chronic systolic (congestive) heart failure (7) T2DM (type 2 diabetes mellitus) Current Visit: Yes Status: Chronic History of T2DM not on any home medications. Glucose elevated, likely due in part to steroids patient is receiving. - Monitor glucose - Sliding scale insulin Qualifiers: Diabetes mellitus complication status: with unspecified complications Diabetes mellitus retirement insulin use: without intermodal dispatcher use Qualified Code( s): E11.8 - Type 2 diabetes mellitus with unspecified complications (8) DVT prophylaxis Current Visit: Yes Status: Acute Heparin Neuro: Intubated and sedated. Daily sedation holiday with close monitoring Pulm: Intubated for airway protection. SBT with close monitoring Cards: ECHO showed EF of 60-65%. Increased Coreg 6.25mg BIDMW FEN-GI: OG tube in place. Tube feeds at goal of 55mls/hr. Lasix IV changed to Lasix PO daily. On pepcid for GI ppx. Renal: Acute kidney injury - improving. Isaac in place. IV lasix changed to PO lasix. Follow UOP ID: Blood cultures negative thus far. Low suspicion for infectious process. Patient had one temperature overnight, will monitor temperature closely. If patient spikes another fever, will culture. Heme/Onc: Recieved 2 units FFP on admission. Heparin for DVT ppx Endo: Monitor glucose. SSI Immuno: Severe angioedema likely secondary to DIANE inhibitor. 2 units FFP transfused on admission. Received Steroids, Benadryl, Pepcid, Singular. Consult to ENT and Allergy/Immunology. C4 normal. Keep patient intubated and sedated as swelling improves Skin: Skin care per ICU protocol Lines: ET, OG, isaac, peripheral IV Code: Full code Dispo: ICU Subjective Principal diagnosis: Severe angioedema Interval history: No acute events overnight. Patient seen and examined. Temperature of 101.5 overnight - per nursing report, room temperture was high and patient was covered. Temperature improved without medication. Elevated blood pressure up to systolic 180 with CPAP trial, improved with fentanyl bolus. Patient seen and examined this morning. She remains intubated and sedated with fentanyl and versed. Good UOP with IV lasix yesterday. Patient's tongue remains swollen but significantly improved from admission. Some associated lip swelling. Lungs are clear to auscultation. Abdomen soft non-tender. No pedal edema. Objective PUL Vital signs: Last Vital Signs Temp 99.6 F 08/31/16 00:00 Pulse 68 08/31/16 06:00 Resp 16 08/31/16 06:09 BP 92/64 08/31/16 06:00 Pulse Ox 97 08/31/16 06:09 General appearance: no acute distress, other (Intubated and sedated) Eyes: nonicteric ENT: other (Tongue and lips swollen) Neck: supple Effort: normal Auscultation: bilateral: clear Cardiovascular: regular rate and rhythm Gastrointestinal: soft, non-tender, non-distended Integumentary: normal Extremities: no cyanosis, no edema unable to assess due to mental status Ventilator Settings Ventilator Settings: Ventilator Settings, Last 8 Hours Ventilator Mode CPAP Ventilator Mode CPAP Ventilator Mode A/C Ventilator Mode A/C Ventilator Mode A/C Ventilator Mode A/C Ventilator Mode A/C Ventilator Mode A/C Ventilator Mode A/C Ventilator Mode A/C Ventilator Mode A/C Ventilator Tidal Volume 400 Setting Ventilator Tidal Volume 400 Setting Ventilator Tidal Volume 400 Setting Ventilator Tidal Volume 400 Setting Ventilator Tidal Volume 400 Setting Ventilator Tidal Volume 400 Setting Ventilator Tidal Volume 400 Setting Ventilator Tidal Volume 400 Setting Ventilator Tidal Volume 400 Setting Ventilator Respiratory Rate 16 Setting Ventilator Respiratory Rate 16 Setting Ventilator Respiratory Rate 16 Setting Ventilator Respiratory Rate 16 Setting Ventilator Respiratory Rate 16 Setting Ventilator Respiratory Rate 16 Setting Ventilator Respiratory Rate 18 Setting Ventilator Respiratory Rate 16 Setting Ventilator Respiratory Rate 16 Setting Actual Respiratory Rate 16 Actual Respiratory Rate 16 Actual Respiratory Rate 16 Actual Respiratory Rate 16 Actual Respiratory Rate 16 Positive End Expiratory 5 Pressure Positive End Expiratory 5 Pressure Positive End Expiratory 5 Pressure Positive End Expiratory 5 Pressure Positive End Expiratory 5 Pressure Positive End Expiratory 5 Pressure Positive End Expiratory 5 Pressure Positive End Expiratory 5 Pressure Positive End Expiratory 5 Pressure Positive End Expiratory 5 Pressure Positive End Expiratory 5 Pressure Peak Inspiratory Airway 15 Pressure Peak Inspiratory Airway 15 Pressure Peak Inspiratory Airway 37 Pressure Peak Inspiratory Airway 35 Pressure Peak Inspiratory Airway 40 Pressure Peak Inspiratory Airway 31 Pressure Results - Laboratory Findings CBC and BMP: 08/31/16 02:46 08/31/16 02:46 ABG ABG pH 7.42 pH Units (7.32-7.45) 08/30/16 04:58 ABG pCO2 38 mmHg (35-45) 08/30/16 04:58 ABG pO2 107 mmHg (85-104) H 08/30/16 04:58 ABG O2 Saturation 98 % (95-98) 08/30/16 04:58 PT/INR, D-dimer PT 12.7 Seconds (9.4-12.1) H 08/26/16 16:45 Abnormal lab findings: Abnormal lab results WBC 11.2 K/mcL (4.3-11.1) H 08/31/16 02:46 RBC 3.66 M/mcL (3.82-4.97) L 08/31/16 02:46 Hgb 10.3 g/dL (11.5-15.4) L 08/31/16 02:46 Hct 32.0 % (35.3-44.9) L 08/31/16 02:46 RDW 20.6 % (11.5-14.5) H 08/31/16 02:46 ESR 63 mm/hr (0-15) H 08/28/16 03:15 PT 12.7 Seconds (9.4-12.1) H 08/26/16 16:45 ABG pO2 107 mmHg (85-104) H 08/30/16 04:58 BUN 71 mg/dL (7-20) H 08/31/16 02:46 Creatinine 1.24 mg/dL (0.57-1.11) H 08/31/16 02:46 Est GFR ( Amer) 51 (> 60) L 08/31/16 02:46 Est GFR (Non-Af Amer) 42 (> 60) L 08/31/16 02:46 BUN/Creatinine Ratio 57 (6-26) H 08/31/16 02:46 Glucose 220 mg/dL (70-99) H 08/31/16 02:46 POC Glucose 196 (58-89) H 08/31/16 04:13 Calculated Osmolality 326 (280-300) H 08/31/16 02:46 Troponin I 0.04 ng/mL (0-0.03) H* 08/26/16 21:58 C-Reactive Protein 11 mg/L (Less than 5) H 08/28/16 03:15 Albumin 3.0 g/dL (3.5-5.0) L 08/30/16 03:00 Albumin/Globulin Ratio 0.9 (1.1-2.2) L 08/30/16 03:00 - Clinical Findings Intake & Output: Intake & Output 08/30/16 08/30/16 08/31/16 15:59 23:59 07:59 Intake Total 488 / 488 336 / 336 225 / 225 Output Total 1525 / 1525 1500 / 1500 850 / 850 Balance -1037 / -1037 -1164 / -1164 -625 / -625
[2016-08-31] MEDS: FentaNYL (PF) 1,000 MCG in 0.9 % Sodium Chloride 80 ML IVC SCH ×2 (08:42→20:05)
[2016-08-31] MEDS: Furosemide 40 MG/4 ML VIAL IVP SCH (09:05)
[2016-08-31] MEDS: Chlorhexidine Rinse 15 ML MOUTHWASH MM SCH ×2 (09:05→20:04)
[2016-08-31] MEDS: Sennosides/Docusate Sodium TABLET PO SCH ×2 (09:05→20:06)
[2016-09-01] MEDS: FentaNYL (PF) 1,000 MCG in 0.9 % Sodium Chloride 80 ML IVC SCH ×2 (01:01→20:01)
[2016-09-01 03:44] LABS: Basophils % 0.1 %; Eosinophils # 0.3 K/mcL (0.0-0.6); Eosinophils % 2.6 %; Hematocrit 31.1 % (35.3-44.9); Hemoglobin 9.7 g/dL (11.5-15.4); Immature Granulocytes % 0.9 % (0-4); Lymphocytes # 1.3 K/mcL (0.6-4.6); Lymphocytes % 12.8 %; Mean Corpuscular HGB Conc 31.2 g/dL (31.6-35.5); Mean Corpuscular Hemoglobin 27.7 pg (28.0-33.3); Mean Corpuscular Volume 88.9 fL (83.0-100.0); Monocytes # 1.3 K/mcL (0.0-1.3); Monocytes % 12.6 %; Neutrophils # 7.3 K/mcL (1.6-8.9); Platelet Count 254 K/mcL (140-400); Red Cell Distribution Width 20.6 % (11.5-14.5)
[2016-09-01 04:04] LABS: BUN/Creatinine Ratio 59 (6-26); Blood Urea Nitrogen 55 mg/dL (7-20); Calcium 9.4 mg/dL (8.6-10.8); Carbon Dioxide 28 mEq/L (19-29); Chloride 109 mEq/L (98-109); Glucose 229 mg/dL (70-99); Osmolality,Calculated 328 (280-300); Phosphorous 2.5 mg/dL (2.3-4.7); Potassium 3.9 mEq/L (3.5-4.5); Sodium 148 mEq/L (136-145); eGFR For African Americans > 60 (> 60); eGFR For Non-African Americans 59 (> 60)
[2016-09-01] MEDS: *HR* Heparin 5,000 UNIT/ML VIAL SQ SCH ×2 (05:38→17:31)
[2016-09-01] MEDS: Famotidine 20 MG/2 ML VIAL IVP SCH (05:38)
[2016-09-01] MEDS: Insulin LISPRO 300 UNITS/3 ML VIAL SQ SCH ×4 (05:42→23:37)
[2016-09-01] MEDS: Lacri-Lube 3.5 GM TUBE BOTH EYES SCH ×6 (05:42→23:37)
[2016-09-01] MEDS ORDERED: Furosemide 40 MG TABLET PO SCH (09:00)
[2016-09-01] MEDS: Sennosides/Docusate Sodium TABLET PO SCH ×2 (09:18→20:01)
[2016-09-01] MEDS: Chlorhexidine Rinse 15 ML MOUTHWASH MM SCH ×2 (09:19→20:01)
--- NOTE | 2016-09-01 09:44 | Pulmonology Progress Note ---
Date of Encounter: 09/01/16 Time of Encounter: 09:43 Assessment and Plan (1) Angioedema Current Visit: Yes Status: Acute Patient admitted with severe angioedema secondary to DIANE inhibitor/ARB medication use. She was intubated in the ED (08/26/2016) for airway protection. Patient has no personal history of allergeis or angioedema. Unknown family history. She remains intubated and sedated. On exam, tongue swollen has almost resolved. C4 normal. - DIANE inhibitor and ARB have been stopped. - Patient received 2 units FFP on admission. - Received solu-medrol, benadryl, pepcid, and singular - Patient remains intubated and sedated on fentanyl and versed. - Consult placed to ENT - Consult placed to Allergy/Immunology Qualifiers: Encounter type: initial encounter Qualified Code(s): T78.3XXA - Angioneurotic edema, initial encounter (2) Acute kidney injury Current Visit: Yes Status: Resolved Acute kidney injury with decreased urine output likely secondary to hypotension on admission - Now resolved. Today's creatinine improved at 0.93. Patient maybe on the dry side. Will hold lasix today. - Hold lasix. - Avoid nephrotoxic drugs if possible and renally dose any meds - Monitor urine output - Monitor kidney function (3) Sick sinus syndrome Current Visit: Yes Status: Acute Patient with history of sick sinus syndrome with BV-ICD in place for CHF. Heart rate appropriate thus far, no arrhythmias. Patient is on a B-yen at home. Coreg started at 3.125mg BID, now at 12.5mg BID - Monitor heart rate and rhythm - Increase coreg to 12.5mg BIDWM (4) HTN (hypertension) Current Visit: Yes Status: Acute History of HTN on lisinopril/Entresto and carvedilol. Due to severe angioedema , patient should not be placed back on DIANE inhibitors or ARBS. Blood pressures overnight elevated during CPAP trial. Coreg started at 3.125mg BID, increased to 12.5mg BID. - Continue to monitor blood pressure - Wean sedation as tolerated - Increased Cored to 12.5mg BIDWM Qualifiers: Hypertension type: essential hypertension Qualified Code(s): I10 - Essential (primary) hypertension (5) CAD (coronary artery disease) Current Visit: Yes Status: Acute History of CAD s/p CABG. Troponin on day for admission 0.04 likely secondary to demand ischemia from her acute illness. - Cardiac monitoring Qualifiers: Coronary Disease-Associated Artery/Lesion type: unspecified vessel or lesion type [place] vs. transplanted heart: [place] heart Associated angina: angina presence unspecified Qualified Code(s): I25.10 - Atherosclerotic heart disease of [place] coronary artery without angina pectoris (6) CHF (congestive heart failure) Current Visit: Yes Status: Chronic Reported history of CHF with BV-ICD in place. ECHO done this admission showed EF of 60-65% improved from 04/2015 when EF was 35-40%. Patient is on a B- yen at home. Coreg started at 3.125mg BID, increased to 12.5mg today - Increased Coreg 12.5mg BIDWM - Continue to monitor fluid status Qualifiers: Congestive heart failure type: systolic Congestive heart failure chronicity : chronic Qualified Code(s): I50.22 - Chronic systolic (congestive) heart failure (7) T2DM (type 2 diabetes mellitus) Current Visit: Yes Status: Chronic History of T2DM not on any home medications. Glucose elevated, likely due in part to steroids patient is receiving. - Monitor glucose - Sliding scale insulin Qualifiers: Diabetes mellitus complication status: with unspecified complications Diabetes mellitus joint terminal attack controller insulin use: without joint terminal attack controller use Qualified Code( s): E11.8 - Type 2 diabetes mellitus with unspecified complications (8) DVT prophylaxis Current Visit: Yes Status: Acute Heparin Neuro: All sedation off. Patient opens eyes to voice and follows some commands Pulm: Intubated for airway protection. SBT with close monitoring. Daily leak test. Hopeful for extubation in the next coupld days. Cards: ECHO showed EF of 60-65%. Increased Coreg 12.5mg BIDMW due to hypertension FEN-GI: OG tube in place. Tube feeds at goal of 55mls/hr. Hold lasix today On pepcid for GI ppx. Renal: Acute kidney injury - improving. Isaac in place. Hold lasix today Follow UOP ID: Blood cultures negative thus far. Low suspicion for infectious process. Heme/Onc: Recieved 2 units FFP on admission. Heparin for DVT ppx Endo: Monitor glucose. SSI Immuno: Severe angioedema likely secondary to DIANE inhibitor. 2 units FFP transfused on admission. Received Steroids, Benadryl, Pepcid, Singular. Consult to ENT and Allergy/Immunology. C4 normal. Keep patient intubated and sedated as swelling improves Skin: Skin care per ICU protocol Lines: ET, OG, isaac, peripheral IV Code: Full code Dispo: ICU Subjective Principal diagnosis: Severe angioedema Interval history: No acute events overnight. Patient seen and examined. She remains intubated with no sedation. Afebrile overnight. Blood pressure 130-160s systolic. She opens eyes to voice and will follow commands. Patient's tongue swelling has almost completely improved. Lungs are clear to auscultation. Abdomen soft non- tender. No pedal edema. Objective PUL Vital signs: Last Vital Signs Temp 99.2 F 09/01/16 03:45 Pulse 71 09/01/16 09:00 Resp 16 09/01/16 09:32 BP 126/66 09/01/16 09:32 Pulse Ox 96 09/01/16 09:32 General appearance: no acute distress Eyes: nonicteric ENT: oropharynx moist Effort: normal Auscultation: bilateral: clear Cardiovascular: regular rate and rhythm Gastrointestinal: soft, non-tender, non-distended Extremities: no cyanosis, no edema other (Opens eyes to voice) Ventilator Settings Ventilator Settings: Ventilator Settings, Last 8 Hours Ventilator Mode A/C Ventilator Mode A/C Ventilator Mode A/C Ventilator Mode A/C Ventilator Mode A/C Ventilator Mode A/C Ventilator Mode A/C Ventilator Mode A/C Ventilator Mode A/C Ventilator Tidal Volume 400 Setting Ventilator Tidal Volume 400 Setting Ventilator Tidal Volume 400 Setting Ventilator Tidal Volume 400 Setting Ventilator Tidal Volume 400 Setting Ventilator Tidal Volume 400 Setting Ventilator Tidal Volume 400 Setting Ventilator Tidal Volume 400 Setting Ventilator Tidal Volume 400 Setting Ventilator Respiratory Rate 16 Setting Ventilator Respiratory Rate 16 Setting Ventilator Respiratory Rate 16 Setting Ventilator Respiratory Rate 16 Setting Ventilator Respiratory Rate 16 Setting Ventilator Respiratory Rate 16 Setting Ventilator Respiratory Rate 16 Setting Ventilator Respiratory Rate 16 Setting Ventilator Respiratory Rate 16 Setting Actual Respiratory Rate 16 Actual Respiratory Rate 16 Actual Respiratory Rate 16 Actual Respiratory Rate 16 Actual Respiratory Rate 16 Actual Respiratory Rate 16 Actual Respiratory Rate 16 Actual Respiratory Rate 16 Actual Respiratory Rate 16 Positive End Expiratory 5 Pressure Positive End Expiratory 5 Pressure Positive End Expiratory 5 Pressure Positive End Expiratory 5 Pressure Positive End Expiratory 5 Pressure Positive End Expiratory 5 Pressure Positive End Expiratory 5 Pressure Positive End Expiratory 5 Pressure Positive End Expiratory 5 Pressure Peak Inspiratory Airway 34 Pressure Peak Inspiratory Airway 31 Pressure Peak Inspiratory Airway 31 Pressure Peak Inspiratory Airway 31 Pressure Peak Inspiratory Airway 31 Pressure Peak Inspiratory Airway 35 Pressure Peak Inspiratory Airway 33 Pressure Peak Inspiratory Airway 34 Pressure Peak Inspiratory Airway 34 Pressure Results - Laboratory Findings CBC and BMP: 09/01/16 03:26 09/01/16 03:26 ABG ABG pH 7.42 pH Units (7.32-7.45) 08/30/16 04:58 ABG pCO2 38 mmHg (35-45) 08/30/16 04:58 ABG pO2 107 mmHg (85-104) H 08/30/16 04:58 ABG O2 Saturation 98 % (95-98) 08/30/16 04:58 PT/INR, D-dimer PT 12.7 Seconds (9.4-12.1) H 08/26/16 16:45 Abnormal lab findings: Abnormal lab results RBC 3.50 M/mcL (3.82-4.97) L 09/01/16 03:26 Hgb 9.7 g/dL (11.5-15.4) L 09/01/16 03:26 Hct 31.1 % (35.3-44.9) L 09/01/16 03:26 MCH 27.7 pg (28.0-33.3) L 09/01/16 03:26 MCHC 31.2 g/dL (31.6-35.5) L 09/01/16 03:26 RDW 20.6 % (11.5-14.5) H 09/01/16 03:26 ESR 63 mm/hr (0-15) H 08/28/16 03:15 PT 12.7 Seconds (9.4-12.1) H 08/26/16 16:45 ABG pO2 107 mmHg (85-104) H 08/30/16 04:58 Sodium 148 mEq/L (136-145) H 09/01/16 03:26 BUN 55 mg/dL (7-20) H 09/01/16 03:26 Est GFR (Non-Af Amer) 59 (> 60) L 09/01/16 03:26 BUN/Creatinine Ratio 59 (6-26) H 09/01/16 03:26 Glucose 229 mg/dL (70-99) H 09/01/16 03:26 POC Glucose 225 (58-89) H 09/01/16 05:41 Calculated Osmolality 328 (280-300) H 09/01/16 03:26 Troponin I 0.04 ng/mL (0-0.03) H* 08/26/16 21:58 C-Reactive Protein 11 mg/L (Less than 5) H 08/28/16 03:15 Albumin 3.0 g/dL (3.5-5.0) L 08/30/16 03:00 Albumin/Globulin Ratio 0.9 (1.1-2.2) L 08/30/16 03:00 - Microbiology Findings Microbiology Findings: Microbiology, Last 48 Hours 08/27/16 00:35 Blood Culture - Final Central Venous Catheter No growth. - Clinical Findings Intake & Output: Intake & Output 08/31/16 09/01/16 09/01/16 23:59 07:59 15:59 Intake Total 305 / 305 351 / 351 Output Total 1350 / 1350 200 / 200 Balance -1045 / -1045 151 / 151 Weight 74.956 kg Consult Discharge Plan - Plan Referrals: Peg Gabriel, TRIM AND BURR OPERATOR [Primary Care Provider] -
[2016-09-02] MEDS: Lacri-Lube 3.5 GM TUBE BOTH EYES SCH ×6 (03:53→23:45)
[2016-09-02 03:58] LABS: Basophils % 0.2 %; Eosinophils # 0.3 K/mcL (0.0-0.6); Eosinophils % 1.6 %; Hematocrit 30.4 % (35.3-44.9); Hemoglobin 9.6 g/dL (11.5-15.4); Immature Granulocytes % 0.8 % (0-4); Lymphocytes # 1.6 K/mcL (0.6-4.6); Lymphocytes % 9.7 %; Mean Corpuscular HGB Conc 31.6 g/dL (31.6-35.5); Mean Corpuscular Hemoglobin 28.2 pg (28.0-33.3); Mean Corpuscular Volume 89.4 fL (83.0-100.0); Mean Platelet Volume 10.3 fL (9.4-12.4); Monocytes # 1.8 K/mcL (0.0-1.3); Monocytes % 10.5 %; Neutrophils # 12.9 K/mcL (1.6-8.9); Platelet Count 264 K/mcL (140-400); Red Cell Distribution Width 20.8 % (11.5-14.5); Segmented Neutrophils % 77.2 %
[2016-09-02 04:14] LABS: BUN/Creatinine Ratio 57 (6-26); Blood Urea Nitrogen 49 mg/dL (7-20); Calcium 9.6 mg/dL (8.6-10.8); Carbon Dioxide 30 mEq/L (19-29); Chloride 109 mEq/L (98-109); Glucose 210 mg/dL (70-99); Magnesium 2.1 mg/dL (1.6-2.6); Osmolality,Calculated 329 (280-300); Potassium 3.5 mEq/L (3.5-4.5); Sodium 150 mEq/L (136-145); eGFR For African Americans > 60 (> 60); eGFR For Non-African Americans > 60 (> 60)
[2016-09-02] MEDS: FentaNYL (PF) 1,000 MCG in 0.9 % Sodium Chloride 80 ML IVC SCH (05:18)
[2016-09-02] MEDS: Famotidine 20 MG/2 ML VIAL IVP SCH ×3 (05:22→17:43)
[2016-09-02] MEDS: *HR* Heparin 5,000 UNIT/ML VIAL SQ SCH ×2 (05:25→17:43)
[2016-09-02] MEDS: Insulin LISPRO 300 UNITS/3 ML VIAL SQ SCH ×5 (05:30→23:45)
[2016-09-02] MEDS ORDERED: Potassium Chloride Elixir 20 MEQ/15 ML UDC GTUBE ONE (05:39)
[2016-09-02] MEDS ORDERED: Potassium Chloride Elixir 20 MEQ/15 ML UDC GTUBE SCH (09:00)
[2016-09-02] MEDS: Chlorhexidine Rinse 15 ML MOUTHWASH MM SCH ×2 (09:20→19:02)
[2016-09-02] MEDS: Sennosides/Docusate Sodium TABLET PO SCH ×2 (09:21→19:02)
[2016-09-02] MEDS ORDERED: Potassium Phosphate 44 MEQ in 0.9 % Sodium Chloride 250 ML IVPB PRN (10:35)
[2016-09-02] MEDS ORDERED: Sodium Phosphate 30 MMOL in D5% in Water 100 ML IVPB PRN (10:35)
--- NOTE | 2016-09-02 11:47 | Pulmonology Progress Note ---
Date of Encounter: 09/02/16 Time of Encounter: 11:47 Assessment and Plan (1) Angioedema Current Visit: Yes Status: Acute Patient admitted with severe angioedema secondary to DIANE inhibitor/ARB medication use. She was intubated in the ED (08/26/2016) for airway protection. Patient has no personal history of allergeis or angioedema. Unknown family history. She remains intubated and sedated. On exam, tongue swollen has almost resolved. C4 normal. - DIANE inhibitor and ARB have been stopped. - Patient received 2 units FFP on admission. - Received solu-medrol, benadryl, pepcid, and singular - Patient remains intubated and sedated on fentanyl and versed. - Consult placed to ENT - Consult placed to Allergy/Immunology Qualifiers: Encounter type: initial encounter Qualified Code(s): T78.3XXA - Angioneurotic edema, initial encounter (2) Acute kidney injury Current Visit: Yes Status: Resolved Acute kidney injury with decreased urine output likely secondary to hypotension on admission - Now resolved. Today's creatinine improved at 0.93. Patient maybe on the dry side. Will hold lasix today. - Hold lasix. - Avoid nephrotoxic drugs if possible and renally dose any meds - Monitor urine output - Monitor kidney function (3) Sick sinus syndrome Current Visit: Yes Status: Acute Patient with history of sick sinus syndrome with BV-ICD in place for CHF. Heart rate appropriate thus far, no arrhythmias. Patient is on a B-yen at home. Coreg started at 3.125mg BID, now at 12.5mg BID - Monitor heart rate and rhythm - Increase coreg to 12.5mg BIDWM (4) HTN (hypertension) Current Visit: Yes Status: Acute History of HTN on lisinopril/Entresto and carvedilol. Due to severe angioedema , patient should not be placed back on DIANE inhibitors or ARBS. Blood pressures overnight elevated during CPAP trial. Coreg started at 3.125mg BID, increased to 12.5mg BID. - Continue to monitor blood pressure - Wean sedation as tolerated - Increased Cored to 12.5mg BIDWM Qualifiers: Hypertension type: essential hypertension Qualified Code(s): I10 - Essential (primary) hypertension (5) CAD (coronary artery disease) Current Visit: Yes Status: Acute History of CAD s/p CABG. Troponin on day for admission 0.04 likely secondary to demand ischemia from her acute illness. - Cardiac monitoring Qualifiers: Coronary Disease-Associated Artery/Lesion type: unspecified vessel or lesion type [place] vs. transplanted heart: [place] heart Associated angina: angina presence unspecified Qualified Code(s): I25.10 - Atherosclerotic heart disease of [place] coronary artery without angina pectoris (6) CHF (congestive heart failure) Current Visit: Yes Status: Chronic Reported history of CHF with BV-ICD in place. ECHO done this admission showed EF of 60-65% improved from 04/2015 when EF was 35-40%. Patient is on a B- yen at home. Coreg started at 3.125mg BID, increased to 12.5mg today - Increased Coreg 12.5mg BIDWM - Continue to monitor fluid status Qualifiers: Congestive heart failure type: systolic Congestive heart failure chronicity : chronic Qualified Code(s): I50.22 - Chronic systolic (congestive) heart failure (7) T2DM (type 2 diabetes mellitus) Current Visit: Yes Status: Chronic History of T2DM not on any home medications. Glucose elevated, likely due in part to steroids patient is receiving. - Monitor glucose - Sliding scale insulin Qualifiers: Diabetes mellitus complication status: with unspecified complications Diabetes mellitus terminal operations supervisor insulin use: without terminal operations supervisor use Qualified Code( s): E11.8 - Type 2 diabetes mellitus with unspecified complications (8) DVT prophylaxis Current Visit: Yes Status: Acute Heparin Neuro: All sedation off. Patient opens eyes to voice and follows some commands Pulm: Intubated for airway protection. SBT with close monitoring. Daily leak test. Hopeful for extubation in the next coupld days. Cards: ECHO showed EF of 60-65%. Increased Coreg 12.5mg BIDMW due to hypertension FEN-GI: OG tube in place. Tube feeds at goal of 55mls/hr. Hold lasix today On pepcid for GI ppx. Renal: Acute kidney injury - improving. Isaac in place. Hold lasix today Follow [facility] ID: Blood cultures negative thus far. Low suspicion for infectious process. Heme/Onc: Recieved 2 units FFP on admission. Heparin for DVT ppx Endo: Monitor glucose. SSI Immuno: Severe angioedema likely secondary to DIANE inhibitor. 2 units FFP transfused on admission. Received Steroids, Benadryl, Pepcid, Singular. Consult to ENT and Allergy/Immunology. C4 normal. Keep patient intubated and sedated as swelling improves Skin: Skin care per ICU protocol Lines: ET, OG, isaac, peripheral IV Code: Full code Dispo: ICU Subjective Principal diagnosis: Severe angioedema Interval history: No acute events overnight. Patient seen and examined. She remains intubated with no sedation. Afebrile overnight. Blood pressure 130-160s systolic. She opens eyes to voice and will follow commands. Patient's tongue swelling has almost completely improved. Lungs are clear to auscultation. Abdomen soft non- tender. No pedal edema. Objective PUL Vital signs: Last Vital Signs Temp 99.2 F 09/02/16 07:36 Pulse 71 09/02/16 11:43 Resp 16 09/02/16 11:18 BP 111/58 09/02/16 11:18 Pulse Ox 97 09/02/16 11:18 Ventilator Settings Ventilator Settings: Ventilator Settings, Last 8 Hours Ventilator Mode A/C Ventilator Mode A/C Ventilator Mode A/C Ventilator Mode A/C Ventilator Mode A/C Ventilator Mode A/C Ventilator Mode A/C Ventilator Mode A/C Ventilator Mode A/C Ventilator Mode A/C Ventilator Mode A/C Ventilator Mode A/C Ventilator Tidal Volume 400 Setting Ventilator Tidal Volume 400 Setting Ventilator Tidal Volume 400 Setting Ventilator Tidal Volume 400 Setting Ventilator Tidal Volume 400 Setting Ventilator Tidal Volume 400 Setting Ventilator Tidal Volume 400 Setting Ventilator Tidal Volume 400 Setting Ventilator Tidal Volume 400 Setting Ventilator Tidal Volume 400 Setting Ventilator Tidal Volume 400 Setting Ventilator Tidal Volume 400 Setting Ventilator Respiratory Rate 16 Setting Ventilator Respiratory Rate 16 Setting Ventilator Respiratory Rate 16 Setting Ventilator Respiratory Rate 16 Setting Ventilator Respiratory Rate 16 Setting Ventilator Respiratory Rate 16 Setting Ventilator Respiratory Rate 16 Setting Ventilator Respiratory Rate 16 Setting Ventilator Respiratory Rate 16 Setting Ventilator Respiratory Rate 16 Setting Ventilator Respiratory Rate 16 Setting Ventilator Respiratory Rate 16 Setting Actual Respiratory Rate 16 Actual Respiratory Rate 16 Actual Respiratory Rate 16 Actual Respiratory Rate 16 Actual Respiratory Rate 16 Actual Respiratory Rate 16 Actual Respiratory Rate 16 Actual Respiratory Rate 16 Actual Respiratory Rate 16 Actual Respiratory Rate 16 Actual Respiratory Rate 16 Actual Respiratory Rate 16 Positive End Expiratory 5 Pressure Positive End Expiratory 5 Pressure Positive End Expiratory 5 Pressure Positive End Expiratory 5 Pressure Positive End Expiratory 5 Pressure Positive End Expiratory 5 Pressure Positive End Expiratory 5 Pressure Positive End Expiratory 5 Pressure Positive End Expiratory 5 Pressure Positive End Expiratory 5 Pressure Positive End Expiratory 5 Pressure Positive End Expiratory 5 Pressure Peak Inspiratory Airway 33 Pressure Peak Inspiratory Airway 29 Pressure Peak Inspiratory Airway 29 Pressure Peak Inspiratory Airway 29 Pressure Peak Inspiratory Airway 28 Pressure Peak Inspiratory Airway 28 Pressure Peak Inspiratory Airway 27 Pressure Peak Inspiratory Airway 28 Pressure Peak Inspiratory Airway 34 Pressure Peak Inspiratory Airway 34 Pressure Peak Inspiratory Airway 34 Pressure Peak Inspiratory Airway 34 Pressure Results - Laboratory Findings CBC and BMP: 09/02/16 03:49 09/02/16 03:49 ABG ABG pH 7.42 pH Units (7.32-7.45) 08/30/16 04:58 ABG pCO2 38 mmHg (35-45) 08/30/16 04:58 ABG pO2 107 mmHg (85-104) H 08/30/16 04:58 ABG O2 Saturation 98 % (95-98) 08/30/16 04:58 PT/INR, D-dimer PT 12.7 Seconds (9.4-12.1) H 08/26/16 16:45 Abnormal lab findings: Abnormal lab results WBC 16.7 K/mcL (4.3-11.1) H D 09/02/16 03:49 RBC 3.40 M/mcL (3.82-4.97) L 09/02/16 03:49 Hgb 9.6 g/dL (11.5-15.4) L 09/02/16 03:49 Hct 30.4 % (35.3-44.9) L 09/02/16 03:49 RDW 20.8 % (11.5-14.5) H 09/02/16 03:49 Neutrophils # 12.9 K/mcL (1.6-8.9) H 09/02/16 03:49 Monocytes # 1.8 K/mcL (0.0-1.3) H 09/02/16 03:49 ESR 63 mm/hr (0-15) H 08/28/16 03:15 PT 12.7 Seconds (9.4-12.1) H 08/26/16 16:45 ABG pO2 107 mmHg (85-104) H 08/30/16 04:58 Sodium 150 mEq/L (136-145) H 09/02/16 03:49 Carbon Dioxide 30 mEq/L (19-29) H 09/02/16 03:49 BUN 49 mg/dL (7-20) H 09/02/16 03:49 BUN/Creatinine Ratio 57 (6-26) H 09/02/16 03:49 Glucose 210 mg/dL (70-99) H 09/02/16 03:49 POC Glucose 230 (58-89) H 09/02/16 11:35 Calculated Osmolality 329 (280-300) H 09/02/16 03:49 Phosphorus 2.0 mg/dL (2.3-4.7) L 09/02/16 03:49 Troponin I 0.04 ng/mL (0-0.03) H* 08/26/16 21:58 C-Reactive Protein 11 mg/L (Less than 5) H 08/28/16 03:15 Albumin 3.0 g/dL (3.5-5.0) L 08/30/16 03:00 Albumin/Globulin Ratio 0.9 (1.1-2.2) L 08/30/16 03:00 - Microbiology Findings Microbiology Findings: Microbiology, Last 48 Hours 08/27/16 00:35 Blood Culture - Final Central Venous Catheter No growth. - Clinical Findings Intake & Output: Intake & Output 09/01/16 09/02/16 09/02/16 23:59 07:59 15:59 Intake Total 1532 / 1532 580 / 580 300 / 300 Output Total 200 / 200 275 / 275 Balance 1332 / 1332 305 / 305 300 / 300 Weight 76.1 kg Consult Discharge Plan - Plan Referrals: Peg Gabriel CNP [Primary Care Provider] -
--- NOTE | 2016-09-02 15:31 | Allergy Progress Note ---
Date of Encounter: 09/02/16 Time of Encounter: 12:30 Subjective Narrative: Patient has remained intubated and has some improvement in her angioedema of lips and tongue. Objective Vital Signs - Last 8 Hours Temp Pulse Resp BP Pulse Ox 09/02/16 15:26 98.7 F 09/02/16 15:03 16 133/72 98 09/02/16 14:00 70 16 133/72 97 09/02/16 13:10 16 121/64 98 09/02/16 13:00 68 16 121/64 97 09/02/16 12:00 68 16 110/60 97 09/02/16 11:59 98.6 F 09/02/16 11:43 71 09/02/16 11:18 16 111/58 97 09/02/16 11:00 71 16 111/58 96 09/02/16 10:00 71 16 120/62 96 09/02/16 09:47 16 117/57 96 09/02/16 09:00 76 17 101/55 96 09/02/16 08:08 80 17 115/68 96 09/02/16 07:40 18 112/59 96 09/02/16 07:36 99.2 F Intake and Output 09/01/16 09/02/16 09/02/16 23:59 07:59 15:59 Intake Total 1532 / 1532 580 / 580 980 / 980 Output Total 200 / 200 275 / 275 150 / 150 Balance 1332 / 1332 305 / 305 830 / 830 Intake: IV Fluids 54 / 54 FentaNYL (PF) 1,000 MCG 54 / 54 In 0.9 % Sodium Chloride 80 ML @ 50 MCG/HR 5 mls/ hr IVC CONT SHAWN Rx#: [id number] Tube Feeding 932 / 932 226 / 226 680 / 680 Free Water 300 / 300 150 / 150 Free Water Intake Amount 300 / 300 150 / 150 300 / 300 Output: Catheter 200 / 200 275 / 275 150 / 150 Other: Weight 76.1 kg Blood Glucose* 230 230 - General physical appearance other (intubated and sedated) - ENT Other (significant decrease in tongue and lip swelling) - Integumentary no rash - Labs 09/02/16 03:49 09/02/16 03:49 Diabetes panel 09/02/16 Range/Units 03:49 Sodium 150 H (136-145) mEq/L Potassium 3.5 (3.5-4.5) mEq/L Chloride 109 (98-109) mEq/L Carbon Dioxide 30 H (19-29) mEq/L BUN 49 H (7-20) mg/dL Creatinine 0.86 (0.57-1.11) mg/dL Glucose 210 H (70-99) mg/dL Calcium 9.6 (8.6-10.8) mg/dL Calcium panel 09/02/16 Range/Units 03:49 Calcium 9.6 (8.6-10.8) mg/dL Phosphorus 2.0 L (2.3-4.7) mg/dL Pituitary panel 09/02/16 Range/Units 03:49 Sodium 150 H (136-145) mEq/L Potassium 3.5 (3.5-4.5) mEq/L Chloride 109 (98-109) mEq/L Carbon Dioxide 30 H (19-29) mEq/L BUN 49 H (7-20) mg/dL Creatinine 0.86 (0.57-1.11) mg/dL Glucose 210 H (70-99) mg/dL Calcium 9.6 (8.6-10.8) mg/dL Adrenal panel 09/02/16 Range/Units 03:49 Sodium 150 H (136-145) mEq/L Potassium 3.5 (3.5-4.5) mEq/L Chloride 109 (98-109) mEq/L Carbon Dioxide 30 H (19-29) mEq/L BUN 49 H (7-20) mg/dL Creatinine 0.86 (0.57-1.11) mg/dL Glucose 210 H (70-99) mg/dL Calcium 9.6 (8.6-10.8) mg/dL - Assessment and Plan (1) Angioedema Current Visit: Yes Status: Acute Patient is a 75 year old female pmhx HTN, CAD, CABG, CHF, DM2, Sick sinus syndrome s/p AICD placement with angioedema without urticaria of lips and tongue. I believe this was drug induced secondary to DIANE inhibitor or ARB or both. Patient's C4 is normal. Patient has had significant improvement of her angioedema however still has some angioedema of the tongue and she still does not have a leak around ET tube. I am concerned that patient has required intubation since 08/26/16 and each additional day I am concerned about her risk of infection. 1. Continue current treatment and monitor 2. Avoid DIANE inhibitor and ARB for rest of life 3. I discussed the possibility of using icatibant for patient. Increased levels of bradykinin appear to have a pathogenic role in [id number] angioedema. There have been mixed results in studies looking at icatibant use in [id number] angioedema. I would have hoped she would have had a faster resolution however I think it is worth a trial dose of icatibant for this patient as her risk of infection increases daily while remaining intubated. This would be an off label use of medication and the pharmacy is looking into options. Qualifiers: Encounter type: subsequent encounter Qualified Code(s): T78.3XXD - Angioneurotic edema, subsequent encounter Consult Discharge Plan - Plan Referrals: Peg Gabriel CNP [Primary Care Provider] -
[2016-09-02 15:55] LABS: Bilirubin,Urine Negative (Negative); Blood,Urine Small (Negative); Clarity,Urine Cloudy (Clear); Color,Urine Yellow (Yellow); Glucose,Urine (UA) Normal (Normal); Ketones,Urine Negative (Negative); Leukocyte Esterase,Urine Large (Negative); Nitrite,Urine Negative (Negative); Protein,Urine 30 mg/dL (Neg-Trace); Specific Gravity,Urine 1.018 (1.010-1.025); Urobilinogen,Urine Normal (Normal)
[2016-09-02 15:57] LABS: Bacteria,Urine Many per hpf (None-Few); Hyaline Casts,Urine None Seen per lpf (None-Few); Squamous Epithelial Cell,Urine Many per lpf (None-Few); WBC,Urine TNTC per hpf (0-3)
[2016-09-02] MEDS: Nystatin SUSP 5 ML UD.LIQ PO SCH (19:13)
[2016-09-03 03:17] LABS: Basophils % 0.2 %; Eosinophils # 0.7 K/mcL (0.0-0.6); Eosinophils % 4.1 %; Hematocrit 29.9 % (35.3-44.9); Hemoglobin 9.3 g/dL (11.5-15.4); Immature Granulocytes % 1.2 % (0-4); Lymphocytes # 2.2 K/mcL (0.6-4.6); Lymphocytes % 13.6 %; Mean Corpuscular HGB Conc 31.1 g/dL (31.6-35.5); Mean Corpuscular Hemoglobin 28.1 pg (28.0-33.3); Mean Corpuscular Volume 90.3 fL (83.0-100.0); Mean Platelet Volume 10.4 fL (9.4-12.4); Monocytes # 1.6 K/mcL (0.0-1.3); Monocytes % 9.9 %; Neutrophils # 11.7 K/mcL (1.6-8.9); Platelet Count 257 K/mcL (140-400); Red Blood Count 3.31 M/mcL (3.82-4.97)
[2016-09-03 03:33] LABS: Ionized Calcium 1.18 mmol/L (1.15-1.35)
[2016-09-03 03:38] LABS: BUN/Creatinine Ratio 58 (6-26); Calcium 9.4 mg/dL (8.6-10.8); Carbon Dioxide 30 mEq/L (19-29); Chloride 107 mEq/L (98-109); Glucose 125 mg/dL (70-99); Magnesium 1.9 mg/dL (1.6-2.6); Osmolality,Calculated 321 (280-300); Phosphorous 2.8 mg/dL (2.3-4.7); Potassium 4.1 mEq/L (3.5-4.5); Sodium 146 mEq/L (136-145); eGFR For African Americans > 60 (> 60); eGFR For Non-African Americans 50 (> 60)
[2016-09-03 03:42] LABS: Blood Urea Nitrogen 62 mg/dL (7-20)
[2016-09-03] MEDS: Insulin LISPRO 300 UNITS/3 ML VIAL SQ SCH ×5 (03:52→19:55)
[2016-09-03] MEDS: FentaNYL (PF) 1,000 MCG in 0.9 % Sodium Chloride 80 ML IVC SCH ×2 (03:52→18:34)
[2016-09-03] MEDS: Lacri-Lube 3.5 GM TUBE BOTH EYES SCH ×6 (03:52→23:41)
[2016-09-03 05:12] LABS: ABG Base Excess 10.2 mEq/L (-2.0 to 3.0); ABG HCO3 34.3 mEQ/L (21-27); ABG Oxygen Saturation 99 % (95-98); ABG PCO2 43 mmHg (35-45); ABG PH 7.51 pH Units (7.32-7.45); ABG PO2 114 mmHg (85-104); ABG TCO2 35.6 mEq/L (20-26); Blood Gas FiO2 60 %; Blood Gas PEEP 5 cm H2O; Blood Gas Respiration Rate 16; Blood Gas VT 400 cc
[2016-09-03] MEDS: Magnesium Sulfate 2 GM in D5% in Water 100 ML IVPB PRN (05:28)
[2016-09-03] MEDS: Famotidine 20 MG/2 ML VIAL IVP SCH ×2 (05:28→18:29)
[2016-09-03] MEDS: *HR* Heparin 5,000 UNIT/ML VIAL SQ SCH ×2 (05:28→18:33)
--- NOTE | 2016-09-03 07:14 | Pulmonology Progress Note ---
Date of Encounter: 09/03/16 Time of Encounter: 07:14 Assessment and Plan (1) Angioedema Current Visit: Yes Status: Acute Patient admitted with severe angioedema secondary to DIANE inhibitor/ARB medication use. She was intubated in the ED (08/26/2016) for airway protection - today is day 9 on the ventilator. Patient has no personal history of allergies or angioedema. Unknown family history. On exam, tongue swollen has almost resolved. Patient remains intubated. She has no cuff leak again today, concerning for continued swelling in the airways. Plan to discuss with ENT for their recommendations and possibility of extubation in the OR. Allergy recommends that if we are to the point of considering a trach, we might consider first trying icatibant as some studies have shown some improvement in ACEi related angioedema. - DIANE inhibitor and ARB have been stopped. - Patient received 2 units FFP on admission. - Received solu-medrol, benadryl, pepcid, and singular - Patient remains intubated. Will discuss with ENT further options from this point. - Consult placed to ENT - Consult placed to Allergy/Immunology Qualifiers: Encounter type: initial encounter Qualified Code(s): T78.3XXA - Angioneurotic edema, initial encounter (2) Urinary tract infection Current Visit: Yes Status: Acute Yesterday, nurse noted that the patient's urine smelled bad. UA was sent that showed large amount of leukocyte esterase, WBC and bacteria. This is suggestive of a urinary tract infection. Isaac catheter was changed. Will start ceftriaxone for total of 5 days. - Isaac catheter changed - Ceftriaxone 1gm daily (day 15) Qualifiers: Urinary tract infection type: site unspecified Hematuria presence: without hematuria Qualified Code(s): N39.0 - Urinary tract infection, site not specified (3) Acute kidney injury Current Visit: Yes Status: Resolved Acute kidney injury with decreased urine output likely secondary to hypotension on admission - improved. Today's creatinine improved at 1.07. UOP has been lower with 525 out yesterday and 75 out over 4 hours this morning. Holding lasix and giving free water with tube feeds because patient's labs suggest she has been overdiuresed. - Hold lasix. - Avoid nephrotoxic drugs if possible and renally dose any meds - Monitor urine output - Monitor kidney function (4) Sick sinus syndrome Current Visit: Yes Status: Acute Patient with history of sick sinus syndrome with BV-ICD in place for CHF. Heart rate appropriate thus far, no arrhythmias. Patient is on a B-yen at home. Coreg started at 3.125mg BID, now at 12.5mg BID - Monitor heart rate and rhythm - Continue coreg to 12.5mg BIDWM (5) HTN (hypertension) Current Visit: Yes Status: Acute History of HTN on lisinopril/Entresto and carvedilol. Due to severe angioedema , patient should not be placed back on DIANE inhibitors or ARBS. Coreg started at 3.125mg BID, increased to 12.5mg BID. - Continue to monitor blood pressure - Wean sedation as tolerated - Continue coreg 12.5mg BIDWM Qualifiers: Hypertension type: essential hypertension Qualified Code(s): I10 - Essential (primary) hypertension (6) CAD (coronary artery disease) Current Visit: Yes Status: Acute History of CAD s/p CABG. Troponin on day for admission 0.04 likely secondary to demand ischemia from her acute illness. - Cardiac monitoring Qualifiers: Coronary Disease-Associated Artery/Lesion type: unspecified vessel or lesion type [place] vs. transplanted heart: [place] heart Associated angina: angina presence unspecified Qualified Code(s): I25.10 - Atherosclerotic heart disease of [place] coronary artery without angina pectoris (7) CHF (congestive heart failure) Current Visit: Yes Status: Chronic Reported history of CHF with BV-ICD in place. ECHO done this admission showed EF of 60-65% improved from 04/2015 when EF was 35-40%. Patient is on a B- eyn at home. Coreg started at 3.125mg BID, increased to 12.5mg today - Continue Coreg 12.5mg BIDWM - Continue to monitor fluid status Qualifiers: Congestive heart failure type: systolic Congestive heart failure chronicity : chronic Qualified Code(s): I50.22 - Chronic systolic (congestive) heart failure (8) T2DM (type 2 diabetes mellitus) Current Visit: Yes Status: Chronic History of T2DM not on any home medications. Glucose elevated. Q4 medium dose correction scale. - Monitor glucose - Sliding scale insulin Qualifiers: Diabetes mellitus complication status: with unspecified complications Diabetes mellitus intermediate project manager insulin use: without usp use Qualified Code( s): E11.8 - Type 2 diabetes mellitus with unspecified complications (9) DVT prophylaxis Current Visit: Yes Status: Acute Heparin Neuro: All sedation off. Patient opens eyes to voice and follows some commands Pulm: Intubated for airway protection. Still with no cuff leak today. Will discuss next steps with ENT. Cards: ECHO showed EF of 60-65%. Continue Coreg 12.5mg BIDMW due to hypertension FEN-GI: OG tube in place. Tube feeds at goal of 40mls/hr. On pepcid for GI ppx. Renal: Acute kidney injury - improving. Isaac changed yesterday. UA concerning for UTI. Started on Ceftriaxone Follow UOP ID: UA concerning for UTI. Started on Ceftriaxone Heme/Onc: Recieved 2 units FFP on admission. Heparin for DVT ppx Endo: Monitor glucose. Moderate SSI Q4H. Immuno: Severe angioedema likely secondary to DIANE inhibitor. 2 units FFP transfused on admission. Received Steroids, Benadryl, Pepcid, Singular. Consult to ENT and Allergy/Immunology. C4 normal. Patient still does not have a cuff leak, concerning for continued airway swelling. Will discuss case with ENT. Skin: Skin care per ICU protocol Lines: ET, OG, isaac, powerglide Code: Full code Dispo: ICU Subjective Principal diagnosis: Severe angioedema Interval history: Yesterday patient's urine smelled funny per nursing. UA and culture was sent, isaac cath was changed. No acute events overnight. Patient seen and examined. She remains intubated with no sedation. No cuff leak this morning. Afebrile overnight. Blood pressure 120-130s systolic. She opens eyes to voice and will sometimes follow commands. Patient's tongue swelling is much improved. Lungs are clear to auscultation. Abdomen soft non-tender. No pedal edema. Objective PUL Vital signs: Last Vital Signs Temp 98.2 F 09/03/16 03:59 Pulse 63 09/03/16 06:00 Resp 16 09/03/16 06:00 BP 117/55 09/03/16 06:00 Pulse Ox 98 09/03/16 06:00 General appearance: no acute distress, other (Intubated. Opens eyes and follow some commands) Eyes: nonicteric ENT: other (Tongue and lip swelling much improved ) Effort: normal Auscultation: bilateral: clear Cardiovascular: regular rate and rhythm Gastrointestinal: soft, non-tender, non-distended Integumentary: normal Extremities: no cyanosis, no edema, no clubbing other (Opens eyes to voice and will sometimes follow cmmands) Ventilator Settings Ventilator Settings: Ventilator Settings, Last 8 Hours Ventilator Mode A/C Ventilator Mode A/C Ventilator Mode A/C Ventilator Mode A/C Ventilator Mode A/C Ventilator Mode A/C Ventilator Mode A/C Ventilator Mode A/C Ventilator Mode A/C Ventilator Mode A/C Ventilator Mode A/C Ventilator Mode A/C Ventilator Tidal Volume 400 Setting Ventilator Tidal Volume 400 Setting Ventilator Tidal Volume 400 Setting Ventilator Tidal Volume 400 Setting Ventilator Tidal Volume 400 Setting Ventilator Tidal Volume 400 Setting Ventilator Tidal Volume 400 Setting Ventilator Tidal Volume 400 Setting Ventilator Tidal Volume 400 Setting Ventilator Tidal Volume 400 Setting Ventilator Tidal Volume 400 Setting Ventilator Tidal Volume 400 Setting Ventilator Respiratory Rate 16 Setting Ventilator Respiratory Rate 16 Setting Ventilator Respiratory Rate 16 Setting Ventilator Respiratory Rate 16 Setting Ventilator Respiratory Rate 16 Setting Ventilator Respiratory Rate 16 Setting Ventilator Respiratory Rate 16 Setting Ventilator Respiratory Rate 16 Setting Ventilator Respiratory Rate 16 Setting Ventilator Respiratory Rate 16 Setting Ventilator Respiratory Rate 16 Setting Ventilator Respiratory Rate 16 Setting Actual Respiratory Rate 16 Actual Respiratory Rate 16 Actual Respiratory Rate 16 Actual Respiratory Rate 16 Actual Respiratory Rate 16 Actual Respiratory Rate 16 Actual Respiratory Rate 16 Actual Respiratory Rate 16 Actual Respiratory Rate 16 Actual Respiratory Rate 16 Actual Respiratory Rate 16 Positive End Expiratory 5 Pressure Positive End Expiratory 5 Pressure Positive End Expiratory 5 Pressure Positive End Expiratory 5 Pressure Positive End Expiratory 5 Pressure Positive End Expiratory 5 Pressure Positive End Expiratory 5 Pressure Positive End Expiratory 5 Pressure Positive End Expiratory 5 Pressure Positive End Expiratory 5 Pressure Positive End Expiratory 5 Pressure Positive End Expiratory 5 Pressure Peak Inspiratory Airway 32 Pressure Peak Inspiratory Airway 32 Pressure Peak Inspiratory Airway 31 Pressure Peak Inspiratory Airway 32 Pressure Peak Inspiratory Airway 31 Pressure Peak Inspiratory Airway 31 Pressure Peak Inspiratory Airway 33 Pressure Peak Inspiratory Airway 32 Pressure Peak Inspiratory Airway 33 Pressure Peak Inspiratory Airway 33 Pressure Peak Inspiratory Airway 33 Pressure Results - Laboratory Findings CBC and BMP: 09/03/16 02:52 09/03/16 02:52 ABG ABG pH 7.51 pH Units (7.32-7.45) H 09/03/16 04:45 ABG pCO2 43 mmHg (35-45) 09/03/16 04:45 ABG pO2 114 mmHg (85-104) H 09/03/16 04:45 ABG O2 Saturation 99 % (95-98) H 09/03/16 04:45 PT/INR, D-dimer PT 12.7 Seconds (9.4-12.1) H 08/26/16 16:45 Abnormal lab findings: Abnormal lab results WBC 16.4 K/mcL (4.3-11.1) H 09/03/16 02:52 RBC 3.31 M/mcL (3.82-4.97) L 09/03/16 02:52 Hgb 9.3 g/dL (11.5-15.4) L 09/03/16 02:52 Hct 29.9 % (35.3-44.9) L 09/03/16 02:52 MCHC 31.1 g/dL (31.6-35.5) L 09/03/16 02:52 RDW 21.0 % (11.5-14.5) H 09/03/16 02:52 Neutrophils # 11.7 K/mcL (1.6-8.9) H 09/03/16 02:52 Monocytes # 1.6 K/mcL (0.0-1.3) H 09/03/16 02:52 Eosinophils # 0.7 K/mcL (0.0-0.6) H 09/03/16 02:52 ESR 63 mm/hr (0-15) H 08/28/16 03:15 PT 12.7 Seconds (9.4-12.1) H 08/26/16 16:45 ABG pH 7.51 pH Units (7.32-7.45) H 09/03/16 04:45 ABG pO2 114 mmHg (85-104) H 09/03/16 04:45 ABG HCO3 34.3 mEQ/L (21-27) H 09/03/16 04:45 ABG Total CO2 35.6 mEq/L (20-26) H 09/03/16 04:45 ABG O2 Saturation 99 % (95-98) H 09/03/16 04:45 ABG Base Excess 10.2 mEq/L (-2.0 to 3.0) H 09/03/16 04:45 Sodium 146 mEq/L (136-145) H 09/03/16 02:52 Carbon Dioxide 30 mEq/L (19-29) H 09/03/16 02:52 BUN 62 mg/dL (7-20) H D 09/03/16 02:52 Est GFR (Non-Af Amer) 50 (> 60) L 09/03/16 02:52 BUN/Creatinine Ratio 58 (6-26) H 09/03/16 02:52 Glucose 125 mg/dL (70-99) H 09/03/16 02:52 POC Glucose 160 (58-89) H 09/02/16 23:34 Calculated Osmolality 321 (280-300) H 09/03/16 02:52 Troponin I 0.04 ng/mL (0-0.03) H* 08/26/16 21:58 C-Reactive Protein 11 mg/L (Less than 5) H 08/28/16 03:15 Albumin 3.0 g/dL (3.5-5.0) L 08/30/16 03:00 Albumin/Globulin Ratio 0.9 (1.1-2.2) L 08/30/16 03:00 Urine Clarity Cloudy (Clear) A 09/02/16 15:40 Urine Protein 30 mg/dL (Neg-Trace) H 09/02/16 15:40 Urine Blood Small (Negative) H 09/02/16 15:40 Ur Leukocyte Esterase Large (Negative) H 09/02/16 15:40 Urine Microscopic RBC 5-15 per hpf (0-3) H 09/02/16 15:40 Urine Microscopic WBC TNTC per hpf (0-3) H 09/02/16 15:40 Ur Squamous Epith Cells Many per lpf (None-Few) H 09/02/16 15:40 Urine Bacteria Many per hpf (None-Few) H 09/02/16 15:40 Ur Culture Indicated? YES (NO) A 09/02/16 15:40 - Microbiology Findings Microbiology Findings: Microbiology, Last 48 Hours 08/27/16 00:35 Blood Culture - Final Central Venous Catheter No growth. - Clinical Findings Intake & Output: Intake & Output 09/02/16 09/02/16 09/03/16 15:59 23:59 07:59 Intake Total 1280 / 1280 1632 / 1632 846 / 846 Output Total 150 / 150 100 / 100 75 / 75 Balance 1130 / 1130 1532 / 1532 771 / 771 Weight 77.5 kg Consult Discharge Plan - Plan Referrals: Peg Gabriel, REFRIGERATOR TESTER [Primary Care Provider] -
[2016-09-03] MEDS: Nystatin SUSP 5 ML UD.LIQ PO SCH ×2 (08:59→19:23)
[2016-09-03] MEDS: Chlorhexidine Rinse 15 ML MOUTHWASH MM SCH ×2 (08:59→19:55)
[2016-09-03] MEDS: Sennosides/Docusate Sodium TABLET PO SCH ×2 (09:00→19:23)
[2016-09-03] MEDS: Dexamethasone 10 MG/ML VIAL IVP SCH ×3 (10:00→23:41)
--- NOTE | 2016-09-03 12:30 | ENT - Progress Note ---
Date of Encounter: 09/03/16 Time of Encounter: 10:45 - Assessment and Plan (1) Angioedema Current Visit: Yes Status: Acute Patient with significantly decreased swelling of the oropharynx on clinical examination. Patient has remained intubated for 9 days now after her initial episode of angioedema. Patient has failed a leak test but his breathing spontaneously. Discussed possible extubation in the OR with pulmonology and primary care team as well as the patient's . Discussed possible tracheostomy if after laryngoscopy with examination of the upper airway shows any significant airway swelling. Discussed that this would be done on an as- needed basis. Discussed risks, benefits, alternatives to tracheostomy tube placement and expected course. Risks include but not limited to bleeding, infection, airway obstruction, possible need for further surgery, tracheoesophageal fistula, pneumothorax, NV, CVA, and even . understands these risks and has agreed to proceed with extubation in the operating room with possible tracheostomy if needed. Consent signed and placed in the chart. Qualifiers: Encounter type: subsequent encounter Qualified Code(s): T78.3XXD - Angioneurotic edema, subsequent encounter (2) Ventilator dependent Current Visit: Yes Status: Acute Subjective Patient reports: other (Patient seen and examined at the bedside. Patient remains intubated and is currently intubated 9 days. Patient with eye opening and some response on command somewhat sedated. Patient resting comfortably in bed) Objective Initial Vital Signs Temp Pulse Resp BP Pulse Ox 97.5 F L 68 18 116/62 98 08/26/16 15:18 08/26/16 15:18 08/26/16 15:18 08/26/16 15:18 08/26/16 15:18 - General physical appearance well developed, well nourished, other (Patient remains on ventilator, spontaneously breathing) - Eyes PERRL, normal ocular movement - ENT normal pinna, normal nares, Other (Endotracheal tube in place, patient is edentulous, floor mouth is soft tongue is soft without any lesion or significant edema) - Neck no masses, no bruits, trachea midline, other (Neck is able to be extended, cricoid easily palpated) - Labs 09/03/16 02:52 09/03/16 02:52 Diabetes panel 09/03/16 Range/Units 02:52 Sodium 146 H (136-145) mEq/L Potassium 4.1 (3.5-4.5) mEq/L Chloride 107 (98-109) mEq/L Carbon Dioxide 30 H (19-29) mEq/L BUN 62 H D (7-20) mg/dL Creatinine 1.07 (0.57-1.11) mg/dL Glucose 125 H (70-99) mg/dL Calcium 9.4 (8.6-10.8) mg/dL Calcium panel 09/03/16 Range/Units 02:52 Calcium 9.4 (8.6-10.8) mg/dL Phosphorus 2.8 (2.3-4.7) mg/dL Pituitary panel 09/03/16 Range/Units 02:52 Sodium 146 H (136-145) mEq/L Potassium 4.1 (3.5-4.5) mEq/L Chloride 107 (98-109) mEq/L Carbon Dioxide 30 H (19-29) mEq/L BUN 62 H D (7-20) mg/dL Creatinine 1.07 (0.57-1.11) mg/dL Glucose 125 H (70-99) mg/dL Calcium 9.4 (8.6-10.8) mg/dL Adrenal panel 09/03/16 Range/Units 02:52 Sodium 146 H (136-145) mEq/L Potassium 4.1 (3.5-4.5) mEq/L Chloride 107 (98-109) mEq/L Carbon Dioxide 30 H (19-29) mEq/L BUN 62 H D (7-20) mg/dL Creatinine 1.07 (0.57-1.11) mg/dL Glucose 125 H (70-99) mg/dL Calcium 9.4 (8.6-10.8) mg/dL Consult Discharge Plan - Plan Referrals: Peg Gabriel, STAFFING CONSULTANT [Primary Care Provider] -
--- NOTE | 2016-09-03 15:02 | Anesthesia Evaluation PreOp ---
Date of Encounter: 09/03/16 Time of Encounter: 14:59 - Past History Planned Operation: Laryngoscopy with poss. Extubation Cardiac History: [place], CHF, HTN, Arrhythmia (Pacemaker for sick sinus syndrome), Cardiac Surgery (2013), Cardiac Stent, Pacemaker/ICD Pulmonary History: COPD SIDE GUIDER History: CVA, Other (Depression) Other Medical History: Diabetes Type II, Other (Angioedema - intubated 08/26/16, RA) Anesthesia History: No Prior Anesthetic Complications, Past Anesthesia (Appy, GB ) : No Alcohol Use: none Drug use: none Medications and Allergies Albuterol Neb [Proventil Neb] 2.5 mg IH TID 03/29/15 [History] Albuterol Sulfate [Albuterol Inhaler] 2 puff IH Q4HR PRN 03/29/15 [History] Atorvastatin Calcium [Lipitor] 20 mg PO HS 03/29/15 [History] Lisinopril [Zestril] 5 mg PO DAILY 03/29/15 [History] [place]-3S/Dha/Epa/Fish Oil [Fish Oil 1,200 mg Softgel] 1 cap PO DAILY 03/29/15 [ History] Omeprazole [PriLOSEC] 40 mg PO DAILY 03/29/15 [History] TraMADol [Ultram] 50 mg PO TID PRN 03/29/15 [History] Aspirin Enteric Coated [Aspirin EC] 81 mg PO DAILY 30 Days 03/30/15 [Rx] Carvedilol [Coreg] 25 mg PO BID 08/26/16 [History] Docusate [Colace] 100 mg PO DAILY PRN 08/26/16 [History] Ferrous Sulfate 325 mg PO BIDWM 08/26/16 [History] Furosemide [Lasix] 40 mg PO DAILY 08/26/16 [History] Melatonin 5 mg PO HS PRN 08/26/16 [History] Nitroglycerin [Nitrostat] 0.4 mg SL Q5M PRN 08/26/16 [History] Oxygen 2 l NS AD 08/26/16 [History] Potassium Chloride [K-Tab ER] 20 meq PO BID 08/26/16 [History] Sacubitril/Valsartan [Entresto 24 mg-26 mg Tablet] 1 each PO BID 08/26/16 [ History] Spironolactone [Aldactone] 12.5 mg PO DAILY 08/26/16 [History] Allergies DIANE Inhibitors Allergy (Severe, Verified 08/27/16 07:09) Swelling of Lip/Tongue/Throat Severe angioedema 08/26/2016 ARB-Angiotensin Receptor Antagonist Allergy (Severe, Verified 08/27/16 07:09) Swelling of Lip/Tongue/Throat Severe angioedema 08/27/2016 plastic tape Allergy (Uncoded 08/26/16 15:23) See Comments - Meds/Allergy Pre-op Review Medications Reviewed: Yes Allergies Reviewed: Yes Beta Blockers on Current Med List: Yes If Beta Blockers taken, Date/Time (Last Dose taken): 09:00 09/03/2016 Anesthesia Results - Labs 09/03/16 02:52 09/03/16 02:52 08/27/16 Echo EF - 60-65% - Imaging EKG: image reviewed (Paced, LBBB) Anesthesia Exam O2 Sat Weight 77.5 kg O2 Sat by Pulse Oximetry 97 O2 Sat by Pulse Oximetry 98 O2 Sat by Pulse Oximetry 97 O2 Sat by Pulse Oximetry 98 O2 Sat by Pulse Oximetry 98 O2 Sat by Pulse Oximetry 97 O2 Sat by Pulse Oximetry 98 O2 Sat by Pulse Oximetry 98 O2 Sat by Pulse Oximetry 98 O2 Sat by Pulse Oximetry 98 O2 Sat by Pulse Oximetry 98 O2 Sat by Pulse Oximetry 98 O2 Sat by Pulse Oximetry 98 O2 Sat by Pulse Oximetry 98 O2 Sat by Pulse Oximetry 97 O2 Sat by Pulse Oximetry 97 O2 Sat by Pulse Oximetry 98 O2 Sat by Pulse Oximetry 98 O2 Sat by Pulse Oximetry 99 O2 Sat by Pulse Oximetry 98 O2 Sat by Pulse Oximetry 98 O2 Sat by Pulse Oximetry 98 O2 Sat by Pulse Oximetry 98 O2 Sat by Pulse Oximetry 98 O2 Sat by Pulse Oximetry 98 O2 Sat by Pulse Oximetry 98 O2 Sat by Pulse Oximetry 98 O2 Sat by Pulse Oximetry 98 O2 Sat by Pulse Oximetry 98 O2 Sat by Pulse Oximetry 98 O2 Sat by Pulse Oximetry 99 O2 Sat by Pulse Oximetry 99 O2 Sat by Pulse Oximetry 99 O2 Sat by Pulse Oximetry 99 O2 Sat by Pulse Oximetry 99 O2 Sat by Pulse Oximetry 99 O2 Sat by Pulse Oximetry 98 O2 Sat by Pulse Oximetry 98 Vital Signs Temp Pulse Resp BP Pulse Ox 97.5 F L 68 18 116/62 98 08/26/16 15:18 08/26/16 15:18 08/26/16 15:18 08/26/16 15:18 08/26/16 15:18 Vital Signs/O2 Sat, Most Current Temp Pulse Resp BP Pulse Ox 98.1 F 60 16 138/70 98 09/03/16 12:00 09/03/16 14:00 09/03/16 14:00 09/03/16 14:00 09/03/16 14:00 Height: 4'11'' Weight: 170# NPO (# of Hours): > 8 hrs Pain Scale: 0 Pain Scale Used: Numeric (1 - 10) - HEENT Pupil (Motor): Pupils equal, EOMI Mallampati: Intubated - SIDE GUIDER LOC: Oriented, Confused SIDE GUIDER Motor: Normal RUE, Normal LUE, Normal RLE, Normal LLE, Normal Face SIDE GUIDER Sensory: Normal: RUE, LUE, RLE, LLE, Face - Cardiac Rhythm: Regular Murmur: None JVD: No Carotid Bruit: No - Pulmonary Breath Sounds: bilateral Clear Respiratory Effort: Symmetrical Anesthesia Assess/Plan ASA Score: 4 Modified [place] Scale for Level of Consciousness: Cooperative, oriented, and tranquil Anesthetic Plan: General Autologous Blood: Yes Monitoring Plan: Standard Monitors Recovery Plan: PACU
[2016-09-03] MEDS ORDERED: *HR* Propofol 200 MG/20 ML VIAL IVP ONE (15:51)
[2016-09-03] MEDS ORDERED: Lidocaine -MPF 2% 2 ML VIAL ONE (15:52)
[2016-09-03] MEDS ORDERED: *HR* FentaNYL (PF) 100 MCG/2 ML VIAL ONE (15:52)
[2016-09-03] MEDS ORDERED: Dexamethasone 4 MG/ML VIAL ONE ×2 (15:52→17:14)
[2016-09-03] MEDS ORDERED: Ondansetron 4 MG/2 ML VIAL ONE (15:52)
[2016-09-03] MEDS ORDERED: *HR* Metoprolol 5 MG/5 ML VIAL IVP PRN (18:48)
[2016-09-03] MEDS: Ipratropium/Albuterol Neb 3 ML IH SCH (22:38)
[2016-09-04] MEDS: Insulin LISPRO 300 UNITS/3 ML VIAL SQ SCH ×6 (00:01→21:15)
[2016-09-04] MEDS: Lacri-Lube 3.5 GM TUBE BOTH EYES SCH (03:18)
[2016-09-04 03:34] LABS: Basophils % 0.2 %; Eosinophils % 0.1 %; Hematocrit 31.8 % (35.3-44.9); Hemoglobin 9.7 g/dL (11.5-15.4); Lymphocytes # 1.3 K/mcL (0.6-4.6); Lymphocytes % 10.9 %; Mean Corpuscular HGB Conc 30.5 g/dL (31.6-35.5); Mean Corpuscular Volume 91.9 fL (83.0-100.0); Mean Platelet Volume 11.5 fL (9.4-12.4); Monocytes # 0.1 K/mcL (0.0-1.3); Monocytes % 1.1 %; Neutrophils # 10.1 K/mcL (1.6-8.9); Platelet Count 174 K/mcL (140-400); Red Blood Count 3.46 M/mcL (3.82-4.97); Red Cell Distribution Width 20.6 % (11.5-14.5); Segmented Neutrophils % 85.7 %
[2016-09-04 03:49] LABS: BUN/Creatinine Ratio 67 (6-26); Blood Urea Nitrogen 66 mg/dL (7-20); Carbon Dioxide 24 mEq/L (19-29); Chloride 108 mEq/L (98-109); Glucose 158 mg/dL (70-99); Magnesium 2.6 mg/dL (1.6-2.6); Osmolality,Calculated 324 (280-300); Potassium 4.5 mEq/L (3.5-4.5); Sodium 146 mEq/L (136-145); eGFR For African Americans > 60 (> 60); eGFR For Non-African Americans 55 (> 60)
[2016-09-04] MEDS: Ipratropium/Albuterol Neb 3 ML IH SCH ×5 (03:49→22:28)
[2016-09-04 03:53] LABS: Phosphorous 4.3 mg/dL (2.3-4.7)
[2016-09-04] MEDS: Famotidine 20 MG/2 ML VIAL IVP SCH (04:27)
[2016-09-04] MEDS: *HR* Heparin 5,000 UNIT/ML VIAL SQ SCH ×2 (04:29→17:35)
[2016-09-04] MEDS: Nystatin SUSP 5 ML UD.LIQ PO SCH ×2 (08:02→19:48)
[2016-09-04] MEDS: Sennosides/Docusate Sodium TABLET PO SCH ×2 (08:02→19:49)
[2016-09-04] MEDS: Dexamethasone 10 MG/ML VIAL IVP SCH (08:02)
[2016-09-04] MEDS: Chlorhexidine Rinse 15 ML MOUTHWASH MM SCH (08:04)
--- NOTE | 2016-09-04 08:10 | ENT - Procedure Note ---
Date of procedure: 09/03/16 Procedure: Preoperative diagnosis: Airway obstruction, angioedema, ventilator dependence Postoperative diagnosis: Same Procedure: Rigid Laryngoscopy diagnostic with extubation in the operating room Surgeon: Ivette Oropeza Title Insurance Sales Representative: N/A Specimens: None Blood loss: None Anesthesia: Gen. endotracheal tube anesthesia Indications: Patient is a 75-year-old female who was recently admitted after acute airway obstruction. Patient presented to the emergency department with acute swelling of the lips and tongue. Per history patient was started on an R Sab[place] to stop her DIANE inhibitor and was taking both medications at the same time with recent medication change. Patient was intubated in the emergency room and airway was stabilized. Patient has been intubated for 9 days and has failed a leak test for extubation. Patient does have significant decrease in swelling of the tongue and lips. Patient awake and responsive taking her own breast but remains on ventilator secondary to failed leak test. After discussion with pulmonary care team extubation in the operating room and possible tracheostomy if significant swelling is present in the upper airway to be performed. Consent: The following procedure was recommended for the patient: Laryngoscopy with extubation in the operating room and possible tracheostomy. This procedure were discussed with the patient's at length including but not limited to bleeding, infection, dysphasia, sore throat, jaw pain, damage to the teeth and gums, pulmonary embolism, pneumothorax, tracheoesophageal fistula innominate artery rupture, CVA, [place], possible need for further surgery. Patient understood these risks and all of his questions were answered. Consent was obtained in writing and this was placed in the chart. Findings: Minimal edema of the epiglottis and arytenoids. Trace edema of the vocal cords bilaterally without significant narrowing of the glottis. Tongue base was soft, floor mouth was soft. Description of procedure in detail: The patient was taken to the operating room and there was placed supine on the operating room table. Patient remained on Micardis she was 30 intubated and brought from the ICU. General endotracheal anesthesia was administered area. The patient was thereafter prepped and draped in the usual sterile manner. Thereafter, timeout was performed. Tube was displaced to the left oral commissure. Multiple damp sponges were placed over the upper alveolar ridge. [place] laryngoscope was then used to examine the upper aerodigestive tract. Scope was used to lift the tongue base and visualized the posterior aspect of the oropharynx. Copious secretions were visualized. Secretions were suctioned. Base of tongue was inspected, bilateral piriform sinuses were then inspected scope was then placed in the supraglottis to visualize the false vocal cords, true vocal cords, glottis, and subglottis. There was minimal watery edema of the epiglottis which is slightly floppy in nature which extended to the arytenoids bilaterally. The true cords with good glottic gap anteriorly with a tube in place posteriorly. There was no significant narrowing of the glottis. At this point supraglottis and upper airway was reevaluated. [place] scope removed from the upper airway and oropharynx was suctioned with a Yankauer suction. Patient was deemed appropriate for extubation as she had no significant swelling blocking her airway. Patient was deemed hemostatic. Rigid scope was then removed. Mouth was inspected after removal of damp sponges from the upper alveolar ridge. Patient was then turned over to anesthesia for arousal who subsequently extubated the patient upon arousal. There was no stridor or noisy breathing upon extubation. Patient tolerated the procedure well.without any apparent complication.
--- NOTE | 2016-09-04 09:23 | Pulmonology Progress Note ---
Date of Encounter: 09/04/16 Time of Encounter: 09:19 Assessment and Plan (1) Angioedema Current Visit: Yes Status: Acute Patient admitted with severe angioedema secondary to DIANE inhibitor/ARB medication use. She was intubated in the ED (08/26/2016) for airway protection. Successfully extubated in the OR with ENG on 09/03/2016. Patient has no personal history of allergies or angioedema. Unknown family history. On exam, tongue swollen has almost resolved. - DIANE inhibitor and ARB have been stopped. - Patient received 2 units FFP on admission. - Received solu-medrol, benadryl, pepcid, and singular - Consult placed to ENT - Consult placed to Allergy/Immunology Qualifiers: Encounter type: initial encounter Qualified Code(s): T78.3XXA - Angioneurotic edema, initial encounter (2) Urinary tract infection Current Visit: Yes Status: Acute Yesterday, nurse noted that the patient's urine smelled bad. UA was sent that showed large amount of leukocyte esterase, WBC and bacteria. Staton catheter was changed. Urine micro cambe back with proteus mirablis ESBL and a second gran negative ines. Patient was initially started on ceftriaxone. Will switch to Meropenem. - Staton catheter changed. Will remove as soon as appropriate - Stop ceftriaxone 1gm (2 days). Start Meropenem 1mg Q8H. Qualifiers: Urinary tract infection type: site unspecified Hematuria presence: without hematuria Qualified Code(s): N39.0 - Urinary tract infection, site not specified (3) Acute kidney injury Current Visit: Yes Status: Resolved Acute kidney injury with decreased urine output likely secondary to hypotension on admission - improved. Today's creatinine improved at 1.07. UOP has been lower with 525 out yesterday and 75 out over 4 hours this morning. Holding lasix and giving free water with tube feeds because patient's labs suggest she has been overdiuresed. - Hold lasix. - Avoid nephrotoxic drugs if possible and renally dose any meds - Monitor urine output - Monitor kidney function (4) Sick sinus syndrome Current Visit: Yes Status: Acute Patient with history of sick sinus syndrome with BV-ICD in place for CHF. Heart rate appropriate thus far, no arrhythmias. Patient is on a B-yen at home. Coreg started at 3.125mg BID, now at home dose of 25mg BID - Monitor heart rate and rhythm - Increase coreg to 25mg BID (5) HTN (hypertension) Current Visit: Yes Status: Acute History of HTN on lisinopril/Entresto and carvedilol. Due to severe angioedema , patient should not be placed back on DIANE inhibitors or ARBS. Coreg started at 3.125mg BID, increased to 12.5mg BID. - Continue to monitor blood pressure - Wean sedation as tolerated - Continue coreg 12.5mg BIDWM Qualifiers: Hypertension type: essential hypertension Qualified Code(s): I10 - Essential (primary) hypertension (6) CAD (coronary artery disease) Current Visit: Yes Status: Acute History of CAD s/p CABG. Troponin on day for admission 0.04 likely secondary to demand ischemia from her acute illness. - Cardiac monitoring Qualifiers: Coronary Disease-Associated Artery/Lesion type: unspecified vessel or lesion type [place] vs. transplanted heart: [place] heart Associated angina: angina presence unspecified Qualified Code(s): I25.10 - Atherosclerotic heart disease of [place] coronary artery without angina pectoris (7) CHF (congestive heart failure) Current Visit: Yes Status: Chronic Reported history of CHF with BV-ICD in place. ECHO done this admission showed EF of 60-65% improved from 04/2015 when EF was 35-40%. Patient is on a B- yen at home. Coreg started at 3.125mg BID, increased to home dose 25mg today - Increase Coreg to 25mg - Continue to monitor fluid status Qualifiers: Congestive heart failure type: systolic Congestive heart failure chronicity : chronic Qualified Code(s): I50.22 - Chronic systolic (congestive) heart failure (8) T2DM (type 2 diabetes mellitus) Current Visit: Yes Status: Chronic History of T2DM not on any home medications. Glucose elevated partly secondary to decadron. Decadron has now been stopped. Will increase to high intensity sliding scale insulin. - Monitor glucose - Sliding scale insulin Qualifiers: Diabetes mellitus complication status: with unspecified complications Diabetes mellitus [facility] insulin use: without [facility] use Qualified Code( s): E11.8 - Type 2 diabetes mellitus with unspecified complications (9) DVT prophylaxis Current Visit: Yes Status: Acute Heparin Neuro: Awake & alert x 3 Pulm: Successfully extubated in OR yesterday. On 2-4L supplemental O2, wean as tolerated Cards: ECHO showed EF of 60-65%. HTN. Increase Coreg to home dose of 25mg FEN-GI: Passed swallow eval. Clear liquids. Renal: Acute kidney injury - improving. Staton changed yesterday. Urine culture grew proteus-ESBL. Switch antibiotics to Merapenem ID: urine culture grew Proteus-ESBL. And about exchanged Merapenem Heme/Onc: Recieved 2 units FFP on admission. Heparin for DVT ppx Endo: Monitor glucose. Increase sliding scale insulin to high-intensity due to elevated glucose levels Immuno: Severe angioedema likely secondary to DIANE inhibitor. 2 units FFP transfused on admission. Received Steroids, Benadryl, Pepcid, Singular. Consult to ENT and Allergy/Immunology. C4 normal. Patient successfully extubated in OR. Skin: Skin care per ICU protocol Code: Full code Dispo: Transfer out of ICU Subjective Principal diagnosis: Severe angioedema Interval history: Patient successfully extubated in the OR yesterday with ENT. She has been on 2- 4L supplemental oxygen overnight. Her voice is starting to come back and she passed a swallow eval this morning. Afebrile overnight. Vital signs within normal limits. Patient seen an examined. She is very hard of hearing but her voice is starting come back. She says she wants to go home. She follow commands, neuro exam is equal symmetrically. Patient's tongue swelling is much improved. Lung sounds are course on exam. Abdomen soft non-tender. No pedal edema. Objective PUL Vital signs: Last Vital Signs Temp 96.8 F L 09/04/16 08:10 Pulse 59 09/04/16 08:00 Resp 18 09/04/16 08:00 BP 151/96 09/04/16 08:00 Pulse Ox 99 09/04/16 08:00 General appearance: no acute distress, alert Eyes: nonicteric ENT: oropharynx moist Effort: normal Auscultation: bilateral: diminished breath sounds, rhonchi Cardiovascular: regular rate and rhythm Gastrointestinal: soft, non-tender, non-distended Integumentary: normal Extremities: no cyanosis, no edema, no clubbing normal mental status, non-focal exam mood appropriate, affect normal Results - Laboratory Findings CBC and BMP: 09/04/16 03:05 09/04/16 03:05 ABG ABG pH 7.51 pH Units (7.32-7.45) H 09/03/16 04:45 ABG pCO2 43 mmHg (35-45) 09/03/16 04:45 ABG pO2 114 mmHg (85-104) H 09/03/16 04:45 ABG O2 Saturation 99 % (95-98) H 09/03/16 04:45 PT/INR, D-dimer PT 12.7 Seconds (9.4-12.1) H 08/26/16 16:45 Abnormal lab findings: Abnormal lab results WBC 11.8 K/mcL (4.3-11.1) H 09/04/16 03:05 RBC 3.46 M/mcL (3.82-4.97) L 09/04/16 03:05 Hgb 9.7 g/dL (11.5-15.4) L 09/04/16 03:05 Hct 31.8 % (35.3-44.9) L 09/04/16 03:05 MCHC 30.5 g/dL (31.6-35.5) L 09/04/16 03:05 RDW 20.6 % (11.5-14.5) H 09/04/16 03:05 Neutrophils # 10.1 K/mcL (1.6-8.9) H 09/04/16 03:05 ESR 63 mm/hr (0-15) H 08/28/16 03:15 PT 12.7 Seconds (9.4-12.1) H 08/26/16 16:45 ABG pH 7.51 pH Units (7.32-7.45) H 09/03/16 04:45 ABG pO2 114 mmHg (85-104) H 09/03/16 04:45 ABG HCO3 34.3 mEQ/L (21-27) H 09/03/16 04:45 ABG Total CO2 35.6 mEq/L (20-26) H 09/03/16 04:45 ABG O2 Saturation 99 % (95-98) H 09/03/16 04:45 ABG Base Excess 10.2 mEq/L (-2.0 to 3.0) H 09/03/16 04:45 Sodium 146 mEq/L (136-145) H 09/04/16 03:05 BUN 66 mg/dL (7-20) H 09/04/16 03:05 Est GFR (Non-Af Amer) 55 (> 60) L 09/04/16 03:05 BUN/Creatinine Ratio 67 (6-26) H 09/04/16 03:05 Glucose 158 mg/dL (70-99) H 09/04/16 03:05 POC Glucose 153 (58-89) H 09/04/16 07:41 Calculated Osmolality 324 (280-300) H 09/04/16 03:05 Ionized Calcium 1.10 mmol/L (1.15-1.35) L 09/04/16 03:05 Troponin I 0.04 ng/mL (0-0.03) H* 08/26/16 21:58 C-Reactive Protein 11 mg/L (Less than 5) H 08/28/16 03:15 Albumin 3.0 g/dL (3.5-5.0) L 08/30/16 03:00 Albumin/Globulin Ratio 0.9 (1.1-2.2) L 08/30/16 03:00 Urine Clarity Cloudy (Clear) A 09/02/16 15:40 Urine Protein 30 mg/dL (Neg-Trace) H 09/02/16 15:40 Urine Blood Small (Negative) H 09/02/16 15:40 Ur Leukocyte Esterase Large (Negative) H 09/02/16 15:40 Urine Microscopic RBC 5-15 per hpf (0-3) H 09/02/16 15:40 Urine Microscopic WBC TNTC per hpf (0-3) H 09/02/16 15:40 Ur Squamous Epith Cells Many per lpf (None-Few) H 09/02/16 15:40 Urine Bacteria Many per hpf (None-Few) H 09/02/16 15:40 Ur Culture Indicated? YES (NO) A 09/02/16 15:40 Imm Complex-C1q Binding 5.4 ugE/mL (0.0-3.9) H 08/26/16 18:46 - Microbiology Findings Microbiology Findings: Microbiology, Last 48 Hours 09/02/16 15:40 Urine Culture - Preliminary Urine,Clean Catch Gram Negative Rogelio Gram Negative Rogelio#2 - Clinical Findings Intake & Output: Intake & Output 09/03/16 09/04/16 09/04/16 23:59 07:59 15:59 Intake Total 86 / 86 Output Total 500 / 500 525 / 525 150 / 150 Balance -414 / -414 -525 / -525 -150 / -150 Weight 76 kg Consult Discharge Plan - Plan Referrals: Peg Gabriel, [employer] [Primary Care Provider] - (SENT WEB REQUEST ON 09-04-16 @ [id number])
[2016-09-04] MEDS ORDERED: *HR* Dextrose 50 % in Water (Syg) 50 ML SYRINGE IVP PRN (10:05)
[2016-09-04] MEDS ORDERED: Dextrose Gel 15 GM PO PRN ×2 (10:05)
[2016-09-04] MEDS ORDERED: Saliva Stimulant 100ml BOTTLE PO PRN (10:05)
[2016-09-04] MEDS ORDERED: Nitroglycerin 0.4 MG TAB.SUBL SL PRN (10:05)
[2016-09-04] MEDS ORDERED: D5% in Water 1,000 ML IVC PRN (10:05)
[2016-09-04] MEDS ORDERED: Ipratropium/Albuterol Neb 3 ML ONE (10:31)
[2016-09-04] MEDS ORDERED: Meropenem 1,000 MG in 0.9 % Sodium Chloride Mini Bag 100 ML IVPB SCH (10:42)
[2016-09-04] MEDS ORDERED: Insulin LISPRO 300 UNITS/3 ML VIAL SQ SCH ×2 (11:30→21:00)
[2016-09-04] MEDS: Aspirin Enteric Coated 81 MG Tablet PO SCH (15:10)
[2016-09-04] MEDS: Spironolactone 25 MG TABLET PO SCH (15:10)
--- NOTE | 2016-09-04 15:50 | Allergy Progress Note ---
Date of Encounter: 09/04/16 Time of Encounter: 12:45 Subjective Narrative: Patient is much improved today. She was extubated yesterday and is sitting up talking and drinking today. She has some right sided weakness which was present before but is worse now. She does not remember is she had taken the diane inhibitor on the day of swelling or just the ARB. Objective Vital Signs - Last 8 Hours Temp Pulse Resp BP Pulse Ox 09/04/16 12:08 59 18 97 09/04/16 12:00 60 09/04/16 10:40 20 95 09/04/16 10:23 97.4 F L 60 18 134/82 97 09/04/16 08:10 96.8 F L 09/04/16 08:00 96.8 F L 59 18 151/96 99 Intake and Output 09/03/16 09/04/16 09/04/16 23:59 07:59 15:59 Intake Total 500 / 500 Output Total 500 / 500 525 / 525 355 / 355 Balance -414 / -414 -525 / -525 145 / 145 Intake: Oral 500 / 500 Tube Feeding Output: Urine 205 / 205 Urethral (Staton) 205 / 205 Catheter 500 / 500 525 / 525 150 / 150 Other: Stool Size Moderate Stool Consistency soft Stool Characteristics Normal for Patient Stool Color Brown Weight 76 kg Blood Glucose* 184 191 136 Patient Weight 09/04/16 23:59 Weight 76 kg - General physical appearance no distress - ENT Other (lips and tongue are no longer edematous, her tongue seems to hang out a little to the left but that may be more related to her weakness) - Respiratory normal respiratory effort - Integumentary no rash - Labs 09/04/16 03:05 09/04/16 03:05 Diabetes panel 09/04/16 Range/Units 03:05 Sodium 146 H (136-145) mEq/L Potassium 4.5 (3.5-4.5) mEq/L Chloride 108 (98-109) mEq/L Carbon Dioxide 24 (19-29) mEq/L BUN 66 H (7-20) mg/dL Creatinine 0.98 (0.57-1.11) mg/dL Glucose 158 H (70-99) mg/dL Calcium 10.0 (8.6-10.8) mg/dL Calcium panel 09/04/16 Range/Units 03:05 Calcium 10.0 (8.6-10.8) mg/dL Phosphorus 4.3 D (2.3-4.7) mg/dL Pituitary panel 09/04/16 Range/Units 03:05 Sodium 146 H (136-145) mEq/L Potassium 4.5 (3.5-4.5) mEq/L Chloride 108 (98-109) mEq/L Carbon Dioxide 24 (19-29) mEq/L BUN 66 H (7-20) mg/dL Creatinine 0.98 (0.57-1.11) mg/dL Glucose 158 H (70-99) mg/dL Calcium 10.0 (8.6-10.8) mg/dL Adrenal panel 09/04/16 Range/Units 03:05 Sodium 146 H (136-145) mEq/L Potassium 4.5 (3.5-4.5) mEq/L Chloride 108 (98-109) mEq/L Carbon Dioxide 24 (19-29) mEq/L BUN 66 H (7-20) mg/dL Creatinine 0.98 (0.57-1.11) mg/dL Glucose 158 H (70-99) mg/dL Calcium 10.0 (8.6-10.8) mg/dL - Assessment and Plan (1) Angioedema Current Visit: Yes Status: Acute Patient is a 75 year old female pmhx HTN, CAD, CABG, CHF, DM2, Sick sinus syndrome s/p AICD placement with angioedema without urticaria of lips and tongue. I believe this was drug induced secondary to DIANE inhibitor or ARB or both. Patient's C4 is normal. Patient has had resolution of her angioedema and was extubated yesterday. 1. Continue current treatment and monitor 2. Avoid DIANE inhibitor and ARB for rest of life 3. I explained to patient that she is unlikely to have a reoccurrence of her angioedema but that it can happen up to a year after stopping an diane inhibitor. This is more likely to happen in the next month if it did. I explained if she has any angioedema that she should go to ED immediately and I would like to be contacted. 4. She is discharged from my care but I explained to patient that if she has any concerns or questions in the future she may contact me. Qualifiers: Encounter type: subsequent encounter Qualified Code(s): T78.3XXD - Angioneurotic edema, subsequent encounter Consult Discharge Plan - Plan Referrals: Peg Gabriel, LEVI [Primary Care Provider] - (SENT WEB REQUEST ON 09-04-16 @ [id number])
--- NOTE | 2016-09-04 16:51 | Event Note ---
Date of Encounter: 09/04/16 Time of Encounter: 16:47 The patient's is not sure if the patient has developed new weakness on the right upper extremity. All extremities have 4/5 weakness more pronounced on the right arm. The patient's mentation has been getting worse for the past year. 1) concerning for possible acute ischemic CVA, no acute findings on CT of the head ordered. Increase ASA to 325 mg daily Neurology consulted by ICU residents ( transferred today to the floor from the icu) neurochecks PT/OT continue statin ECHO from this month showed no clots, carotid ultrasound from Apr 2016 shows non stenotic plaque may order MRI of the brain if able to do ti ( has a Biventricular pacemaker) ECHO and carotis U/S 2) ESBL UTI/acute metabolic encephalopathy stop Rocephin, start Merrem
--- NOTE | 2016-09-04 17:35 | Neurology - Consult Note ---
Date of Encounter: 09/04/16 Time of Encounter: 17:28 Assessment and Plan (1) CVA (cerebral vascular accident) Current Visit: Yes Status: Acute This patient developed acute onset of tongue swelling secondary to angioedema few days ago and is currently in recovery. However she was found to have right sided weakness this AM, with no known exact time of onset and she is currently out of any tpa intervention. Clinically, patient has weakness to the right arm and leg, especially in the proximal part not the distal part and that the hand houseperson appears strong. CT of head showed age indeterminate left BG hypo-intensity which can cause such presentation. Patient can not get MRI of brain due to pacemaker placement. WIll obtain repeat CT of head tomorrow. Will obtain stroke work up, echo ( already completed) , carotid artery duplex, continue Aspirin ( increase to 325mg daily) DVT prophylaxis. PT/OT. Strength appears improving, agreed by as well. Qualifiers: CVA mechanism: unspecified Qualified Code(s): I63.9 - Cerebral infarction, unspecified History of Present Illness Chief complaint: right sided weakness HPI: Ms. Pardo is a 75 year old female with PMH significant for CVA, HTN, CHF, DM, chronic headache who initially was admitted to [facility] due to swelling tongue likely related to the use of Lisinopril or Gilberto?. She was initially intubated for airway protection but later successfully extubated and transferred out of ICU. This AM she was found to have some questionable weakness bilaterally and more on the right side. THis afternoon, when she was checked again it was found that the weakness has persisted. CT of head at 1: 30pm showed no acute intracranial abnormality but questional age indeterminate left BG focal hypointensity. Patient also had a TIA during where she developed confusion and mental status changes. She also had right sided residual weakness after valva surgery September/2015 but normally she is able to walk. Right sided weakness is mild. 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 Right leg unable to lift off the bed but able to wiggle her toes bilaterally. Past Med Surg Social Fam HX - Past Medical History Medical history: arthritis, cancer, CHF, COPD, CVA, diabetes, hyperlipidemia, hypertension, myocardial infarction, other Psychiatric history: depression - Past Surgical History Surgical History: appendectomy, cholecystectomy - Social History Smoking Status: Never smoker Smokeless Tobacco Status: No Alcohol use: none Drug use: none Medications and Allergies Albuterol Neb [Proventil Neb] 2.5 mg IH TID 03/29/15 [History] Albuterol Sulfate [Albuterol Inhaler] 2 puff IH Q4HR PRN 03/29/15 [History] Atorvastatin Calcium [Lipitor] 20 mg PO HS 03/29/15 [History] Lisinopril [Zestril] 5 mg PO DAILY 03/29/15 [History] [place]-3S/Dha/Epa/Fish Oil [Fish Oil 1,200 mg Softgel] 1 cap PO DAILY 03/29/15 [ History] Omeprazole [PriLOSEC] 40 mg PO DAILY 03/29/15 [History] TraMADol [Ultram] 50 mg PO TID PRN 03/29/15 [History] Aspirin Enteric Coated [Aspirin EC] 81 mg PO DAILY 30 Days 03/30/15 [Rx] Carvedilol [Coreg] 25 mg PO BID 08/26/16 [History] Docusate [Colace] 100 mg PO DAILY PRN 08/26/16 [History] Ferrous Sulfate 325 mg PO BIDWM 08/26/16 [History] Furosemide [Lasix] 40 mg PO DAILY 08/26/16 [History] Melatonin 5 mg PO HS PRN 08/26/16 [History] Nitroglycerin [Nitrostat] 0.4 mg SL Q5M PRN 08/26/16 [History] Oxygen 2 l NS AD 08/26/16 [History] Potassium Chloride [K-Tab ER] 20 meq PO BID 08/26/16 [History] Sacubitril/Valsartan [Entresto 24 mg-26 mg Tablet] 1 each PO BID 08/26/16 [ History] Spironolactone [Aldactone] 12.5 mg PO DAILY 08/26/16 [History] Allergies DIANE Inhibitors Allergy (Severe, Verified 08/27/16 07:09) Swelling of Lip/Tongue/Throat Severe angioedema 08/26/2016 ARB-Angiotensin Receptor Antagonist Allergy (Severe, Verified 08/27/16 07:09) Swelling of Lip/Tongue/Throat Severe angioedema 08/27/2016 plastic tape Allergy (Uncoded 08/26/16 15:23) See Comments All Systems: A 10-system review of systems was performed and is negative for pertinent findings except as documented above in the HPI. Physical Examination - Vital Signs Vital Signs: Initial Vital Signs Temp Pulse Resp BP Pulse Ox 97.5 F L 68 18 116/62 98 08/26/16 15:18 08/26/16 15:18 08/26/16 15:18 08/26/16 15:18 08/26/16 15:18 - Constitutional General appearance: comfortable - Neurologic Sensorimotor examination: other (Difficult to assess due to hearing difficulty per ) Motor examination - right side: 2/5: deltoids, hip flexors, tibialis Anterior, quadriceps, 4/5: biceps, triceps, wrist flexion, wrist extension, houseperson, toe extension (EHL), plantarflexion Motor examination - left side: 2/5: deltoids, biceps, triceps, hip flexors, houseperson , quadriceps, tibialis Anterior, 4/5: wrist flexion, wrist extension, toe extension (EHL), plantarflexion Detailed sensory examination: other (Difficult to assess due to hearing difficulty) Posture: other (None) Reflex and gait examination: other (Gait ot assessed) Mental Status Examination: alert, lucid (follow siimple commands. Assessment difficult due to hearing difficulty. There appears to be baseline cognitive impairment as well), opens eyes to voice, opens eyes to noxious stimulation, makes eye contact, follows simple commands Cranial nerve examination: PERRL, EOMI, visual miles intact (Unable to assess) , corneal reflexes brisk symmetrically, sensory to face intact, mastication intact, no facial asymmetry is present, no dysarthria, hearing is intact symmetrically, soft palate elevates bilaterally upon phonation, tongue protrudes midline Results - Laboratory Findings CBC and BMP: 09/04/16 03:05 09/04/16 03:05 Abnormal lab findings: Abnormal lab results WBC 11.8 K/mcL (4.3-11.1) H 09/04/16 03:05 RBC 3.46 M/mcL (3.82-4.97) L 09/04/16 03:05 Hgb 9.7 g/dL (11.5-15.4) L 09/04/16 03:05 Hct 31.8 % (35.3-44.9) L 09/04/16 03:05 MCHC 30.5 g/dL (31.6-35.5) L 09/04/16 03:05 RDW 20.6 % (11.5-14.5) H 09/04/16 03:05 Neutrophils # 10.1 K/mcL (1.6-8.9) H 09/04/16 03:05 ESR 63 mm/hr (0-15) H 08/28/16 03:15 PT 12.7 Seconds (9.4-12.1) H 08/26/16 16:45 ABG pH 7.51 pH Units (7.32-7.45) H 09/03/16 04:45 ABG pO2 114 mmHg (85-104) H 09/03/16 04:45 ABG HCO3 34.3 mEQ/L (21-27) H 09/03/16 04:45 ABG Total CO2 35.6 mEq/L (20-26) H 09/03/16 04:45 ABG O2 Saturation 99 % (95-98) H 09/03/16 04:45 ABG Base Excess 10.2 mEq/L (-2.0 to 3.0) H 09/03/16 04:45 Sodium 146 mEq/L (136-145) H 09/04/16 03:05 BUN 66 mg/dL (7-20) H 09/04/16 03:05 Est GFR (Non-Af Amer) 55 (> 60) L 09/04/16 03:05 BUN/Creatinine Ratio 67 (6-26) H 09/04/16 03:05 Glucose 158 mg/dL (70-99) H 09/04/16 03:05 POC Glucose 136 (58-89) H 09/04/16 12:02 Calculated Osmolality 324 (280-300) H 09/04/16 03:05 Ionized Calcium 1.10 mmol/L (1.15-1.35) L 09/04/16 03:05 Troponin I 0.04 ng/mL (0-0.03) H* 08/26/16 21:58 C-Reactive Protein 11 mg/L (Less than 5) H 08/28/16 03:15 Albumin 3.0 g/dL (3.5-5.0) L 08/30/16 03:00 Albumin/Globulin Ratio 0.9 (1.1-2.2) L 08/30/16 03:00 Urine Clarity Cloudy (Clear) A 09/02/16 15:40 Urine Protein 30 mg/dL (Neg-Trace) H 09/02/16 15:40 Urine Blood Small (Negative) H 09/02/16 15:40 Ur Leukocyte Esterase Large (Negative) H 09/02/16 15:40 Urine Microscopic RBC 5-15 per hpf (0-3) H 09/02/16 15:40 Urine Microscopic WBC TNTC per hpf (0-3) H 09/02/16 15:40 Ur Squamous Epith Cells Many per lpf (None-Few) H 09/02/16 15:40 Urine Bacteria Many per hpf (None-Few) H 09/02/16 15:40 Ur Culture Indicated? YES (NO) A 09/02/16 15:40 Imm Complex-C1q Binding 5.4 ugE/mL (0.0-3.9) H 08/26/16 18:46 Consult Discharge Plan - Plan Referrals: Peg Gabriel, DIETITIAN ASSISTANT [Primary Care Provider] - (SENT WEB REQUEST ON 09-04-16 @ [phone])
[2016-09-04] MEDS: Meropenem 1,000 MG in 0.9 % Sodium Chloride Mini Bag 100 ML IVPB SCH (21:14)
[2016-09-05] MEDS: Ipratropium/Albuterol Neb 3 ML IH SCH ×4 (05:06→21:45)
[2016-09-05] MEDS: *HR* Heparin 5,000 UNIT/ML VIAL SQ SCH ×2 (05:52→17:55)
[2016-09-05 05:57] LABS: Basophils % 0.1 %; Hematocrit 30.5 % (35.3-44.9); Hemoglobin 9.6 g/dL (11.5-15.4); Lymphocytes # 1.4 K/mcL (0.6-4.6); Lymphocytes % 7.7 %; Mean Corpuscular HGB Conc 31.5 g/dL (31.6-35.5); Mean Corpuscular Hemoglobin 27.9 pg (28.0-33.3); Mean Corpuscular Volume 88.7 fL (83.0-100.0); Mean Platelet Volume 11.1 fL (9.4-12.4); Monocytes # 0.9 K/mcL (0.0-1.3); Monocytes % 4.6 %; Neutrophils # 16.2 K/mcL (1.6-8.9); Platelet Count 307 K/mcL (140-400); Red Blood Count 3.44 M/mcL (3.82-4.97); Red Cell Distribution Width 19.9 % (11.5-14.5); Segmented Neutrophils % 86.6 %
[2016-09-05 06:11] LABS: BUN/Creatinine Ratio 72 (6-26); Blood Urea Nitrogen 72 mg/dL (7-20); Carbon Dioxide 27 mEq/L (19-29); Chloride 106 mEq/L (98-109); Glucose 184 mg/dL (70-99); Magnesium 2.2 mg/dL (1.6-2.6); Osmolality,Calculated 324 (280-300); Phosphorous 4.1 mg/dL (2.3-4.7); Potassium 3.9 mEq/L (3.5-4.5); Sodium 144 mEq/L (136-145); eGFR For African Americans > 60 (> 60); eGFR For Non-African Americans 54 (> 60)
[2016-09-05 06:23] LABS: INR 1.2; Prothrombin Time 12.5 Seconds (9.4-12.1)
[2016-09-05] MEDS: Sennosides/Docusate Sodium TABLET PO SCH ×2 (10:02→20:38)
[2016-09-05] MEDS: Aspirin Enteric Coated 81 MG Tablet PO SCH (10:02)
[2016-09-05] MEDS: Nystatin SUSP 5 ML UD.LIQ PO SCH ×2 (10:03→20:38)
[2016-09-05] MEDS: Spironolactone 25 MG TABLET PO SCH (10:03)
[2016-09-05] MEDS: Meropenem 1,000 MG in 0.9 % Sodium Chloride Mini Bag 100 ML IVPB SCH (10:03)
[2016-09-05] MEDS: Insulin LISPRO 300 UNITS/3 ML VIAL SQ SCH ×3 (10:03→17:47)
--- NOTE | 2016-09-05 13:00 | Internal Med Progress Note ---
Date of Encounter: 09/05/16 Time of Encounter: 13:00 - Assessment and plan (1) CVA (cerebral vascular accident) Current Visit: Yes Status: Acute Assessment and plan: Concern for acute CVA. CT of the head shows areas of hypoattenuation within the periventricular and subcortical white matter likely chronic microvascular ischemic change. Neurology consulted. Recommend continuing aspirin and workup for stroke. Qualifiers: CVA mechanism: unspecified Qualified Code(s): I63.9 - Cerebral infarction, unspecified (2) Acute kidney injury Current Visit: Yes Status: Resolved Assessment and plan: While the patient's creatinine has normalized, her BUN continues to rise. Likely due to poor oral hydration. We will give intravenous D5 water at low dose overnight. (3) CHF (congestive heart failure) Current Visit: Yes Status: Chronic Assessment and plan: Lasix has been held due to kidney injury. Continue aspirin, beta yen and Aldactone. Qualifiers: Congestive heart failure type: systolic Congestive heart failure chronicity : chronic Qualified Code(s): I50.22 - Chronic systolic (congestive) heart failure (4) Angioedema Current Visit: Yes Status: Resolved Assessment and plan: This seems to have completely resolved now. Respiratory status is now much improved. No longer having any tongue swelling. Qualifiers: Encounter type: subsequent encounter Qualified Code(s): T78.3XXD - Angioneurotic edema, subsequent encounter (5) CAD (coronary artery disease) Current Visit: Yes Status: Chronic Assessment and plan: On aspirin, statin and beta yen Qualifiers: Coronary Disease-Associated Artery/Lesion type: unspecified vessel or lesion type [place] vs. transplanted heart: [place] heart Associated angina: angina presence unspecified Qualified Code(s): I25.10 - Atherosclerotic heart disease of [place] coronary artery without angina pectoris (6) Sick sinus syndrome Current Visit: Yes Status: Acute (7) T2DM (type 2 diabetes mellitus) Current Visit: Yes Status: Chronic Assessment and plan: Blood sugars elevated today. We will increase insulin regimen accordingly. Qualifiers: Diabetes mellitus complication status: with unspecified complications Diabetes mellitus correction insulin use: without correction use Qualified Code( s): E11.8 - Type 2 diabetes mellitus with unspecified complications (8) Urinary tract infection Current Visit: Yes Status: Acute Assessment and plan: Visit Proteus mirabilis ESBL in Klebsiella pneumonia MDRO. Consulted infectious disease for antibiotic recommendations. Currently on meropenem. High risk for complications Qualifiers: Urinary tract infection type: site unspecified Hematuria presence: without hematuria Qualified Code(s): N39.0 - Urinary tract infection, site not specified - Subjective Interval history: Patient seen earlier in the day. Lying in bed. This completed physical therapy. Appears lethargic. Following commands. Denies any pain. No new complaints at this time - Constitutional Vitals: Temp Pulse Resp BP Pulse Ox 97.9 F 62 16 153/86 98 09/05/16 11:46 09/05/16 11:46 09/05/16 11:46 09/05/16 11:46 09/05/16 11:46 General appearance: Present: cooperative, A&O X 3, no acute distress, answers questions appropriately - ENT Additional comments: No swelling of the tongue - Respiratory Respiratory exam: Present: CTAB. Absent: accessory muscle use, rales, rhonchi, wheezes - Cardiovascular Cardiovascular exam: Present: RRR, +S1, +S2. Absent: diastolic murmur, gallop, rubs, systolic murmur - GI/Abdominal GI/Abdominal exam: Present: normal bowel sounds, soft, no peritoneal signs. Absent: distended, tenderness - Extremities Exam Extremities exam: Present: warm, radial pulses palpable and symetrical. Absent : calf tenderness, cyanotic, pedal edema - Neurological Exam Neurological exam: Present: CN II-XII intact, oriented X3. Absent: facial droop , speech deficit Additional comments: Decreased strength 3/5 on the right upper extremity. 4/5 in left upper extremity. Able to assess strength in lower extremity due to difficulty in following commands. - Skin Skin exam: Present: dry, intact Internal Medicine: Result - Labs CBC & Chem 7: 09/05/16 05:38 09/05/16 05:38 Labs: Short CBC 09/05/16 Range/Units 05:38 WBC 18.7 H D (4.3-11.1) K/mcL Hgb 9.6 L (11.5-15.4) g/dL Hct 30.5 L (35.3-44.9) % Plt Count 307 D (140-400) K/mcL Neutrophils # 16.2 H (1.6-8.9) K/mcL BMP 09/05/16 05:38 Sodium 144 Potassium 3.9 Chloride 106 Carbon Dioxide 27 BUN 72 H Creatinine 1.00 Glucose 184 H Calcium 10.0 - ABG Interpretation ABG results: ABG ABG pH 7.51 pH Units (7.32-7.45) H 09/03/16 04:45 ABG pCO2 43 mmHg (35-45) 09/03/16 04:45 ABG pO2 114 mmHg (85-104) H 09/03/16 04:45 ABG O2 Saturation 99 % (95-98) H 09/03/16 04:45 PT/INR, D-dimer PT 12.5 Seconds (9.4-12.1) H 09/05/16 05:38 - Impressions Impressions Head CT 09/04/16 12:18 IMPRESSION: 1. Mild global atrophy with no acute intracranial hemorrhage or global mass effect. 2. Chronic small vessel ischemic changes with age-indeterminate left basal ganglia lacunar infarct. D/ / 09/04/2016 13:27:26 Dagoberto Mcleod MD / Karoline Pederson Interpreting Provider: Dagoberto Mcleod MD Head CT 09/05/16 10:00 IMPRESSION: No acute intracranial abnormality. D/ / David Philippe MD / David Philippe MD Interpreting Provider: David Philippe MD Consult Discharge Plan - Plan Referrals: Peg Gabriel CNP [Primary Care Provider] - 09/09/16 1:15 pm () - Attending Attestation This document has been at least partially created by [employer] recognition technology by Dr. Burnett. Errors in grammar, wording or other phrases may exist. If errors are found after the documentation is signed, they will be addressed individually in the addendum section of this document when appropriate.
--- NOTE | 2016-09-05 13:46 | Neurology Progress Note ---
Date of Encounter: 09/05/16 Time of Encounter: 13:44 Assessment and Plan (1) CVA (cerebral vascular accident) Current Visit: Yes Status: Acute This could be the result of a small lacunar infarct, age-indeterminate in nature. Will continue her on Aspirin 325mg daily and continue PT/OT. Qualifiers: CVA mechanism: unspecified Qualified Code(s): I63.9 - Cerebral infarction, unspecified Subjective Principal diagnosis: right sided weakness and CVA Interval history: Patient seen and examined. Today her mental status is much better able to talk and denies any acute discomfort. Right sided weakness still present but improved compared to yesterday. CT of head showed no acute intracranial abnormality. Has focal hypointensity at the left BG may cause the right sided weakness. Has previous right sided paresis in the past due to stroke. Objective - Constitutional Vitals: Temp Pulse Resp BP Pulse Ox 97.9 F 60 16 153/86 98 09/05/16 11:46 09/05/16 12:40 09/05/16 11:46 09/05/16 11:46 09/05/16 11:46 - Neurological Exam Sensorimotor examination: Present: other (Difficult to assess due to hearing difficulty per ) Motor examination - left side: 2/5: deltoids, biceps, triceps, hip flexors, cardiovascular physician assistant , quadriceps, tibialis Anterior, 4/5: wrist flexion, wrist extension, toe extension (EHL), plantarflexion Sensation intact: Present: other (Difficult to assess due to hearing difficulty) Posture: Present: other (None) Reflex and gait examination: other (Gait ot assessed) Mental Status Examination: Present: alert, lucid (follow siimple commands. Assessment difficult due to hearing difficulty. There appears to be baseline cognitive impairment as well), opens eyes to voice, opens eyes to noxious stimulation, makes eye contact, follows simple commands Cranial nerve examination: Present: PERRL, EOMI, visual miles intact (Unable to assess), corneal reflexes brisk symmetrically, sensory to face intact, mastication intact, no facial asymmetry is present, no dysarthria, hearing is intact symmetrically, soft palate elevates bilaterally upon phonation, tongue protrudes midline Results - Laboratory Findings CBC and BMP: 09/05/16 05:38 09/05/16 05:38 Abnormal lab findings: Abnormal lab results WBC 18.7 K/mcL (4.3-11.1) H D 09/05/16 05:38 RBC 3.44 M/mcL (3.82-4.97) L 09/05/16 05:38 Hgb 9.6 g/dL (11.5-15.4) L 09/05/16 05:38 Hct 30.5 % (35.3-44.9) L 09/05/16 05:38 MCH 27.9 pg (28.0-33.3) L 09/05/16 05:38 MCHC 31.5 g/dL (31.6-35.5) L 09/05/16 05:38 RDW 19.9 % (11.5-14.5) H 09/05/16 05:38 Neutrophils # 16.2 K/mcL (1.6-8.9) H 09/05/16 05:38 ESR 63 mm/hr (0-15) H 08/28/16 03:15 PT 12.5 Seconds (9.4-12.1) H 09/05/16 05:38 ABG pH 7.51 pH Units (7.32-7.45) H 09/03/16 04:45 ABG pO2 114 mmHg (85-104) H 09/03/16 04:45 ABG HCO3 34.3 mEQ/L (21-27) H 09/03/16 04:45 ABG Total CO2 35.6 mEq/L (20-26) H 09/03/16 04:45 ABG O2 Saturation 99 % (95-98) H 09/03/16 04:45 ABG Base Excess 10.2 mEq/L (-2.0 to 3.0) H 09/03/16 04:45 BUN 72 mg/dL (7-20) H 09/05/16 05:38 Est GFR (Non-Af Amer) 54 (> 60) L 09/05/16 05:38 BUN/Creatinine Ratio 72 (6-26) H 09/05/16 05:38 Glucose 184 mg/dL (70-99) H 09/05/16 05:38 POC Glucose 273 (58-89) H 09/04/16 16:47 Calculated Osmolality 324 (280-300) H 09/05/16 05:38 Troponin I 0.04 ng/mL (0-0.03) H* 08/26/16 21:58 C-Reactive Protein 11 mg/L (Less than 5) H 08/28/16 03:15 Albumin 3.0 g/dL (3.5-5.0) L 08/30/16 03:00 Albumin/Globulin Ratio 0.9 (1.1-2.2) L 08/30/16 03:00 Urine Clarity Cloudy (Clear) A 09/02/16 15:40 Urine Protein 30 mg/dL (Neg-Trace) H 09/02/16 15:40 Urine Blood Small (Negative) H 09/02/16 15:40 Ur Leukocyte Esterase Large (Negative) H 09/02/16 15:40 Urine Microscopic RBC 5-15 per hpf (0-3) H 09/02/16 15:40 Urine Microscopic WBC TNTC per hpf (0-3) H 09/02/16 15:40 Ur Squamous Epith Cells Many per lpf (None-Few) H 09/02/16 15:40 Urine Bacteria Many per hpf (None-Few) H 09/02/16 15:40 Ur Culture Indicated? YES (NO) A 09/02/16 15:40 Imm Complex-C1q Binding 5.4 ugE/mL (0.0-3.9) H 08/26/16 18:46 Consult Discharge Plan - Plan Referrals: Peg Gabriel CNP [Primary Care Provider] - 09/09/16 1:15 pm ()
--- NOTE | 2016-09-05 15:21 | Infectious Disease Consult ---
Date of Encounter: 09/05/16 Time of Encounter: 15:21 Assessment and Plan (1) UTI due to extended-spectrum beta lactamase (ESBL) producing Escherichia coli Status: Acute Assessment and plan: Cultures obtained on 09/02/2016 revealed Proteus that is ESBL and klebsiella pneumoniae that multidrug resistant. Patient tells me she is asymptomatic but I am concerned that she is not understanding all the questions properly and she has a hearing problem I recommend starting ertapenem 1 g IV every 24 hours 5 days. Remove Staton catheter if at all possible The patient contact isolation Monitor labs Likely leukocytosis is due to the steroids No signs of pyelonephritis (2) Tongue swelling Status: Acute (3) Angioedema Status: Resolved Assessment and plan: Etiology not clear may be due to DIANE inhibitor. Required intubation Was extubated 2 days ago Appears to be clinically stable. Qualifiers: Encounter type: subsequent encounter Qualified Code(s): T78.3XXD - Angioneurotic edema, subsequent encounter (4) Required emergent intubation Status: Acute (5) Sick sinus syndrome Status: Acute (6) HTN (hypertension) Status: Acute Qualifiers: Hypertension type: essential hypertension Qualified Code(s): I10 - Essential (primary) hypertension (7) CAD (coronary artery disease) Status: Chronic Qualifiers: Coronary Disease-Associated Artery/Lesion type: unspecified vessel or lesion type [place] vs. transplanted heart: [place] heart Associated angina: angina presence unspecified Qualified Code(s): I25.10 - Atherosclerotic heart disease of [place] coronary artery without angina pectoris (8) CHF (congestive heart failure) Status: Chronic Qualifiers: Congestive heart failure type: systolic Congestive heart failure chronicity : chronic Qualified Code(s): I50.22 - Chronic systolic (congestive) heart failure (9) T2DM (type 2 diabetes mellitus) Status: Chronic Qualifiers: Diabetes mellitus complication status: with unspecified complications Diabetes mellitus senior care insulin use: without lobsterman use Qualified Code( s): E11.8 - Type 2 diabetes mellitus with unspecified complications Infectious Disease HPI - Data of Consult Patient: new to practice Consult date: 09/05/16 Requesting Physician: Wolf Burnett MD Primary Care Provider: Peg Gabriel CNP - Consult Narrative Reason for consult: sepsis and MDR UTI History of present illness: Ms. Pardo is a 75 year old female Patient is 75-year-old woman admitted to [facility] on 08/26/2016 with angioedema and respiratory compromise requiring intubation area we are consult did on 2016 for UTI with Klebsiella and Proteus ESBL. Patient is a 75 year old female pmhx HTN, CAD, CABG, CHF, DM2, Sick sinus syndrome s/p AICD placement with angioedema without urticaria of lips and tongue On 09/02/2016 nursing staff noticed that her urine was smelling bad as per note. A UA was obtained which revealed many epithelial cells negative nitrites and large leukocyte esterase. Urine culture was obtained and revealed Klebsiella pneumoniae bacteria that was multidrug resistant and Proteus ESBL. Staton catheter was changed and patient was started on ceftriaxone. At that time patients WBC was also getting much worse jumped from 10,000 on 09/01/16 to 16.7 thousand on 09/02/16. Keep in mind patient on high-dose steroids. Today patient laying in bed, appears comfortable no acute distress. is at bedside. Patient is extubated. Patient still has some tongue swelling but is really not that impressive again and will have any point of reference. Patient denies any urinary symptoms but I think she'll hard of hearing and she is really not understanding the questions. Patient continues to have an indwelling Staton catheter. Rest of the review of system is unremarkable. CC: Wolf Burnett MD Past Med Surg Social Fam HX - Past Medical History Medical history: arthritis, cancer, CHF, COPD, CVA, diabetes, hyperlipidemia, hypertension, myocardial infarction, other Psychiatric history: depression - Past Surgical History Surgical History: appendectomy, cholecystectomy - Social History Smoking Status: Never smoker Smokeless Tobacco Status: No Alcohol use: none Drug use: none Infectious Disease-CN:Meds Albuterol Neb [Proventil Neb] 2.5 mg IH TID 03/29/15 [History] Albuterol Sulfate [Albuterol Inhaler] 2 puff IH Q4HR PRN 03/29/15 [History] Atorvastatin Calcium [Lipitor] 20 mg PO HS 03/29/15 [History] Lisinopril [Zestril] 5 mg PO DAILY 03/29/15 [History] Winston-3S/Dha/Epa/Fish Oil [Fish Oil 1,200 mg Softgel] 1 cap PO DAILY 03/29/15 [ History] Omeprazole [PriLOSEC] 40 mg PO DAILY 03/29/15 [History] TraMADol [Ultram] 50 mg PO TID PRN 03/29/15 [History] Aspirin Enteric Coated [Aspirin EC] 81 mg PO DAILY 30 Days 03/30/15 [Rx] Carvedilol [Coreg] 25 mg PO BID 08/26/16 [History] Docusate [Colace] 100 mg PO DAILY PRN 08/26/16 [History] Ferrous Sulfate 325 mg PO BIDWM 08/26/16 [History] Furosemide [Lasix] 40 mg PO DAILY 08/26/16 [History] Melatonin 5 mg PO HS PRN 08/26/16 [History] Nitroglycerin [Nitrostat] 0.4 mg SL Q5M PRN 08/26/16 [History] Oxygen 2 l NS AD 08/26/16 [History] Potassium Chloride [K-Tab ER] 20 meq PO BID 08/26/16 [History] Sacubitril/Valsartan [Entresto 24 mg-26 mg Tablet] 1 each PO BID 08/26/16 [ History] Spironolactone [Aldactone] 12.5 mg PO DAILY 08/26/16 [History] Allergies DIANE Inhibitors Allergy (Severe, Verified 08/27/16 07:09) Swelling of Lip/Tongue/Throat Severe angioedema 08/26/2016 ARB-Angiotensin Receptor Antagonist Allergy (Severe, Verified 08/27/16 07:09) Swelling of Lip/Tongue/Throat Severe angioedema 08/27/2016 plastic tape Allergy (Uncoded 08/26/16 15:23) See Comments Review of systems: 10 point review of systems done, negative other for what is mentioned in history of present illness. Exam - Constitutional Vitals: Temp Pulse Resp BP Pulse Ox 97.9 F 60 16 153/86 98 09/05/16 11:46 09/05/16 12:40 09/05/16 11:46 09/05/16 11:46 09/05/16 11:46 General appearance: cooperative, no acute distress - Head Head exam: Present: atraumatic, normocephalic - Eye Eye exam: Present: EOMI, PERRL, sclera anicteric - ENT ENT exam: Present: mucous membranes dry Additional comments: I do appreciate some tongue swelling - Neck Neck exam: Present: full ROM Additional comments: Trachea midline, no stridor. - Respiratory Respiratory exam: Present: CTAB. Absent: wheezes - Cardiovascular Cardiovascular exam: Present: RRR, +S1, +S2 - GI/Abdominal GI/Abdominal exam: Present: normal bowel sounds, soft. Absent: tenderness - Extremities Exam Extremities exam: Present: full ROM, normal inspection - Neurological Exam Neurological exam: Present: alert, oriented X3 Infectious Disease CN: Results - Labs CBC & Chem 7: 09/05/16 05:38 09/05/16 05:38 Cultures: Cultures 09/02/16 15:40 Urine Culture - Final Urine,Clean Catch Proteus mirablis ESBL Klebsiella pneumoniae MDRO 08/27/16 00:35 Blood Culture - Final Central Venous Catheter No growth. Serology: Serology 09/02/16 Range/Units 15:40 Urine Color Yellow (Yellow) Urine Clarity Cloudy A (Clear) Urine pH 7.0 (5.0-8.0) pH Units Ur Specific [place] 1.018 (1.010-1.025) Urine Protein 30 H (Neg-Trace) mg/dL Urine Glucose (UA) Normal (Normal) mg/dL Urine Ketones Negative (Negative) mg/dL Urine Blood Small H (Negative) Urine Nitrite Negative (Negative) Urine Bilirubin Negative (Negative) Urine Urobilinogen Normal (Normal) mg/dL Ur Leukocyte Esterase Large H (Negative) Urine Microscopic RBC 5-15 H (0-3) per hpf Urine Microscopic WBC TNTC H (0-3) per hpf Ur Squamous Epith Cells Many H (None-Few) per lpf Urine Bacteria Many H (None-Few) per hpf Hyaline Casts None Seen (None-Few) per lpf Ur Culture Indicated? YES A (NO) Consult Discharge Plan - Plan Referrals: Peg Gabriel CNP [Primary Care Provider] - 09/09/16 1:15 pm ()
[2016-09-05] MEDS: Ertapenem 1,000 MG in 0.9 % Sodium Chloride Mini Bag 100 ML IVPB SCH (17:55)
[2016-09-06] MEDS: Ipratropium/Albuterol Neb 3 ML IH SCH ×4 (03:53→22:34)
[2016-09-06 05:37] LABS: Eosinophils # 0.3 K/mcL (0.0-0.6); Eosinophils % 2.5 %; Hematocrit 30.1 % (35.3-44.9); Hemoglobin 9.6 g/dL (11.5-15.4); Immature Granulocytes % 0.7 % (0-4); Lymphocytes # 2.1 K/mcL (0.6-4.6); Lymphocytes % 17.7 %; Mean Corpuscular HGB Conc 31.9 g/dL (31.6-35.5); Mean Corpuscular Hemoglobin 28.2 pg (28.0-33.3); Mean Corpuscular Volume 88.3 fL (83.0-100.0); Mean Platelet Volume 10.4 fL (9.4-12.4); Monocytes # 0.9 K/mcL (0.0-1.3); Monocytes % 7.9 %; Neutrophils # 8.3 K/mcL (1.6-8.9); Platelet Count 294 K/mcL (140-400); Red Blood Count 3.41 M/mcL (3.82-4.97); Red Cell Distribution Width 19.8 % (11.5-14.5); Segmented Neutrophils % 71.2 %
[2016-09-06 05:47] LABS: BUN/Creatinine Ratio 70 (6-26); Blood Urea Nitrogen 57 mg/dL (7-20); Calcium 9.3 mg/dL (8.6-10.8); Carbon Dioxide 27 mEq/L (19-29); Chloride 108 mEq/L (98-109); Glucose 105 mg/dL (70-99); Osmolality,Calculated 312 (280-300); Potassium 4.1 mEq/L (3.5-4.5); Sodium 143 mEq/L (136-145); eGFR For African Americans > 60 (> 60); eGFR For Non-African Americans > 60 (> 60)
[2016-09-06] MEDS: Insulin LISPRO 300 UNITS/3 ML VIAL SQ SCH ×5 (06:04→20:40)
[2016-09-06] MEDS: *HR* Heparin 5,000 UNIT/ML VIAL SQ SCH ×2 (06:04→17:36)
[2016-09-06] MEDS: Aspirin Enteric Coated 325 MG Tablet PO SCH (09:01)
[2016-09-06] MEDS: Nystatin SUSP 5 ML UD.LIQ PO SCH ×2 (09:01→20:41)
[2016-09-06] MEDS: Ertapenem 1,000 MG in 0.9 % Sodium Chloride Mini Bag 100 ML IVPB SCH (09:01)
[2016-09-06] MEDS: Spironolactone 25 MG TABLET PO SCH (09:01)
[2016-09-06] MEDS: Sennosides/Docusate Sodium TABLET PO SCH ×2 (09:28→20:42)
--- NOTE | 2016-09-06 13:53 | Internal Med Progress Note ---
Date of Encounter: 09/06/16 Time of Encounter: 12:15 - Assessment and plan (1) CVA (cerebral vascular accident) Current Visit: Yes Status: Acute Assessment and plan: On aspirin and statin. Continue physical therapy. Awaiting placement to skilled rehabilitation. Moderate risk for complications Qualifiers: CVA mechanism: unspecified Qualified Code(s): I63.9 - Cerebral infarction, unspecified (2) Acute kidney injury Current Visit: Yes Status: Resolved Assessment and plan: BUN is improving today. (3) CHF (congestive heart failure) Current Visit: Yes Status: Chronic Assessment and plan: Not in acute exacerbation. Qualifiers: Congestive heart failure type: systolic Congestive heart failure chronicity : chronic Qualified Code(s): I50.22 - Chronic systolic (congestive) heart failure (4) Angioedema Current Visit: Yes Status: Resolved Qualifiers: Encounter type: subsequent encounter Qualified Code(s): T78.3XXD - Angioneurotic edema, subsequent encounter (5) CAD (coronary artery disease) Current Visit: Yes Status: Chronic Assessment and plan: On aspirin and statin and beta yen. No chest pain Qualifiers: Coronary Disease-Associated Artery/Lesion type: unspecified vessel or lesion type [place] vs. transplanted heart: [place] heart Associated angina: angina presence unspecified Qualified Code(s): I25.10 - Atherosclerotic heart disease of [place] coronary artery without angina pectoris (6) Sick sinus syndrome Current Visit: Yes Status: Acute (7) T2DM (type 2 diabetes mellitus) Current Visit: Yes Status: Chronic Assessment and plan: Blood sugars are slightly elevated. Will place patient on long-acting insulin Qualifiers: Diabetes mellitus complication status: with unspecified complications Diabetes mellitus buttermaker helper insulin use: without buttermaker helper use Qualified Code( s): E11.8 - Type 2 diabetes mellitus with unspecified complications (8) Urinary tract infection Current Visit: Yes Status: Acute Assessment and plan: With Proteus and Klebsiella multidrug resistant. On ertapenem per infectious disease recommendations. Qualifiers: Urinary tract infection type: site unspecified Hematuria presence: without hematuria Qualified Code(s): N39.0 - Urinary tract infection, site not specified - Subjective Interval history: Patient is currently very somnolent. is present at bedside. No acute issues reported overnight. She did have breakfast according to the patient's . Did not have any new complaints. - Constitutional Vitals: Temp Pulse Resp BP Pulse Ox 96.2 F L 61 16 125/61 94 09/06/16 11:07 09/06/16 11:40 09/06/16 11:07 09/06/16 11:07 09/06/16 11:07 General appearance: Present: no acute distress, answers questions appropriately Exam: Somnolent - Neck Neck exam general surgery: Present: supple, trachea midline. Absent: lymphadenopathy - Respiratory Respiratory exam: Present: CTAB. Absent: accessory muscle use, rales, rhonchi, wheezes - Cardiovascular Cardiovascular exam: Present: RRR, +S1, +S2. Absent: diastolic murmur, gallop, rubs, systolic murmur - GI/Abdominal GI/Abdominal exam: Present: normal bowel sounds, soft, no peritoneal signs. Absent: distended, tenderness - Neurological Exam Neurological exam: Present: no focal deficits. Absent: facial droop, speech deficit Additional comments: Somnolent. Not able to participate in the neuro exam - Skin Skin exam: Present: dry, intact Internal Medicine: Result - Labs CBC & Chem 7: 09/06/16 05:20 09/06/16 05:20 Labs: Short CBC 09/06/16 Range/Units 05:20 WBC 11.7 H (4.3-11.1) K/mcL Hgb 9.6 L (11.5-15.4) g/dL Hct 30.1 L (35.3-44.9) % Plt Count 294 (140-400) K/mcL Neutrophils # 8.3 (1.6-8.9) K/mcL BMP 09/06/16 05:20 Sodium 143 Potassium 4.1 Chloride 108 Carbon Dioxide 27 BUN 57 H Creatinine 0.81 Glucose 105 H Calcium 9.3 - ABG Interpretation ABG results: ABG ABG pH 7.51 pH Units (7.32-7.45) H 09/03/16 04:45 ABG pCO2 43 mmHg (35-45) 09/03/16 04:45 ABG pO2 114 mmHg (85-104) H 09/03/16 04:45 ABG O2 Saturation 99 % (95-98) H 09/03/16 04:45 PT/INR, D-dimer PT 12.5 Seconds (9.4-12.1) H 09/05/16 05:38 Consult Discharge Plan - Plan Referrals: Peg Gabriel, LEVI [Primary Care Provider] - 09/09/16 1:15 pm () - Attending Attestation This document has been at least partially created by [employer] recognition technology by Dr. Burnett. Errors in grammar, wording or other phrases may exist. If errors are found after the documentation is signed, they will be addressed individually in the addendum section of this document when appropriate.
[2016-09-06] MEDS: Insulin DETEMIR 100 UNIT/ML X5UNITS SQ SCH (20:41)
[2016-09-07] MEDS: Ipratropium/Albuterol Neb 3 ML IH SCH ×4 (04:37→22:34)
[2016-09-07 04:54] LABS: Basophils % 0.1 %; Eosinophils # 0.6 K/mcL (0.0-0.6); Eosinophils % 7.6 %; Hematocrit 29.4 % (35.3-44.9); Hemoglobin 9.4 g/dL (11.5-15.4); Immature Granulocytes % 0.5 % (0-4); Mean Corpuscular Hemoglobin 28.1 pg (28.0-33.3); Monocytes # 0.7 K/mcL (0.0-1.3); Monocytes % 9.3 %; Neutrophils # 4.6 K/mcL (1.6-8.9); Platelet Count 270 K/mcL (140-400); Red Blood Count 3.34 M/mcL (3.82-4.97); Red Cell Distribution Width 19.5 % (11.5-14.5); Segmented Neutrophils % 57.5 %
[2016-09-07 05:04] LABS: BUN/Creatinine Ratio 62 (6-26); Calcium 8.9 mg/dL (8.6-10.8); Carbon Dioxide 28 mEq/L (19-29); Chloride 108 mEq/L (98-109); Glucose 78 mg/dL (70-99); Osmolality,Calculated 306 (280-300); Potassium 3.9 mEq/L (3.5-4.5); Sodium 143 mEq/L (136-145); eGFR For African Americans > 60 (> 60); eGFR For Non-African Americans > 60 (> 60)
[2016-09-07 05:05] LABS: Blood Urea Nitrogen 44 mg/dL (7-20)
[2016-09-07] MEDS: *HR* Heparin 5,000 UNIT/ML VIAL SQ SCH ×2 (06:16→20:43)
[2016-09-07] MEDS: Insulin LISPRO 300 UNITS/3 ML VIAL SQ SCH ×4 (08:29→20:43)
[2016-09-07] MEDS: Nystatin SUSP 5 ML UD.LIQ PO SCH ×2 (08:37→20:44)
[2016-09-07] MEDS: Spironolactone 25 MG TABLET PO SCH (08:37)
[2016-09-07] MEDS: Aspirin Enteric Coated 325 MG Tablet PO SCH (08:37)
[2016-09-07] MEDS: Ertapenem 1,000 MG in 0.9 % Sodium Chloride Mini Bag 100 ML IVPB SCH (08:38)
[2016-09-07] MEDS: Sennosides/Docusate Sodium TABLET PO SCH ×2 (08:38→20:44)
--- NOTE | 2016-09-07 13:49 | Internal Med Progress Note ---
Date of Encounter: 09/07/16 Time of Encounter: 11:00 - Assessment and plan (1) CVA (cerebral vascular accident) Current Visit: Yes Status: Acute Assessment and plan: Continue current management with physical therapy, aspirin and statin. Awaiting placement to skilled rehabilitation. Low risk for complications at this time Qualifiers: CVA mechanism: unspecified Qualified Code(s): I63.9 - Cerebral infarction, unspecified (2) Acute kidney injury Current Visit: Yes Status: Resolved Assessment and plan: BUN continues to improve. (3) CHF (congestive heart failure) Current Visit: Yes Status: Chronic Assessment and plan: Not in acute exacerbation. Continue aspirin, statin and beta yen. May resume Lasix at discharge. Qualifiers: Congestive heart failure type: systolic Congestive heart failure chronicity : chronic Qualified Code(s): I50.22 - Chronic systolic (congestive) heart failure (4) Angioedema Current Visit: Yes Status: Resolved Assessment and plan: Has been taken off DIANE inhibitor and ARB. Qualifiers: Encounter type: subsequent encounter Qualified Code(s): T78.3XXD - Angioneurotic edema, subsequent encounter (5) CAD (coronary artery disease) Current Visit: Yes Status: Chronic Assessment and plan: Continue aspirin and statin and beta yen Qualifiers: Coronary Disease-Associated Artery/Lesion type: unspecified vessel or lesion type [place] vs. transplanted heart: [place] heart Associated angina: angina presence unspecified Qualified Code(s): I25.10 - Atherosclerotic heart disease of [place] coronary artery without angina pectoris (6) Sick sinus syndrome Current Visit: Yes Status: Acute (7) T2DM (type 2 diabetes mellitus) Current Visit: Yes Status: Chronic Assessment and plan: Blood sugars are much better controlled. We will continue to monitor closely. Qualifiers: Diabetes mellitus complication status: with unspecified complications Diabetes mellitus snf insulin use: without snf use Qualified Code( s): E11.8 - Type 2 diabetes mellitus with unspecified complications (8) Urinary tract infection Current Visit: Yes Status: Acute Assessment and plan: With Proteus and Klebsiella multidrug resistant. Continue ertapenem per infectious disease recommendations. Will need to complete 14 day treatment course Qualifiers: Urinary tract infection type: site unspecified Hematuria presence: without hematuria Qualified Code(s): N39.0 - Urinary tract infection, site not specified - Subjective Interval history: Patient is more awake and alert today. Answering questions appropriately. Feeling much better overall. No shortness of breath or chest pain reported. No other new complaints at this time. - Constitutional Vitals: Temp Pulse Resp BP Pulse Ox 98.1 F 59 16 154/75 94 09/07/16 11:14 09/07/16 11:14 09/07/16 11:14 09/07/16 11:14 09/07/16 11:14 General appearance: Present: cooperative, A&O X 2, pleasant, no acute distress, obese, answers questions appropriately - Respiratory Respiratory exam: Present: CTAB. Absent: accessory muscle use, rales, rhonchi, wheezes - Cardiovascular Cardiovascular exam: Present: RRR, +S1, +S2. Absent: diastolic murmur, gallop, rubs, systolic murmur - GI/Abdominal GI/Abdominal exam: Present: normal bowel sounds, soft, no peritoneal signs. Absent: distended, tenderness - Extremities Exam Extremities exam: Present: warm, radial pulses palpable and symetrical. Absent : calf tenderness, cyanotic, pedal edema - Neurological Exam Neurological exam: Present: alert, oriented X3. Absent: speech deficit Additional comments: Improving strength in the left upper and lower extremities. 4/5 today. - Skin Skin exam: Present: dry, intact Internal Medicine: Result - Labs CBC & Chem 7: 09/07/16 04:36 09/07/16 04:36 Labs: Short CBC 09/07/16 Range/Units 04:36 WBC 7.9 (4.3-11.1) K/mcL Hgb 9.4 L (11.5-15.4) g/dL Hct 29.4 L (35.3-44.9) % Plt Count 270 (140-400) K/mcL Neutrophils # 4.6 (1.6-8.9) K/mcL BMP 09/07/16 04:36 Sodium 143 Potassium 3.9 Chloride 108 Carbon Dioxide 28 BUN 44 H D Creatinine 0.71 Glucose 78 Calcium 8.9 - ABG Interpretation ABG results: ABG ABG pH 7.51 pH Units (7.32-7.45) H 09/03/16 04:45 ABG pCO2 43 mmHg (35-45) 09/03/16 04:45 ABG pO2 114 mmHg (85-104) H 09/03/16 04:45 ABG O2 Saturation 99 % (95-98) H 09/03/16 04:45 PT/INR, D-dimer PT 12.5 Seconds (9.4-12.1) H 09/05/16 05:38 Consult Discharge Plan - Plan Referrals: Peg Gabriel CNP [Primary Care Provider] - 09/09/16 1:15 pm () - Attending Attestation This document has been at least partially created by [employer] recognition technology by Dr. Burnett. Errors in grammar, wording or other phrases may exist. If errors are found after the documentation is signed, they will be addressed individually in the addendum section of this document when appropriate.
[2016-09-07] MEDS: Insulin DETEMIR 100 UNIT/ML X5UNITS SQ SCH (20:43)
[2016-09-08] MEDS: Ipratropium/Albuterol Neb 3 ML IH SCH ×4 (03:46→23:29)
[2016-09-08 05:19] LABS: BUN/Creatinine Ratio 49 (6-26); Blood Urea Nitrogen 36 mg/dL (7-20); Carbon Dioxide 22 mEq/L (19-29); Chloride 109 mEq/L (98-109); Glucose 80 mg/dL (70-99); Osmolality,Calculated 299 (280-300); Potassium 4.2 mEq/L (3.5-4.5); Sodium 141 mEq/L (136-145); eGFR For African Americans > 60 (> 60); eGFR For Non-African Americans > 60 (> 60)
[2016-09-08] MEDS: *HR* Heparin 5,000 UNIT/ML VIAL SQ SCH ×2 (05:56→20:23)
[2016-09-08 06:40] LABS: Basophils % 0.2 %; Eosinophils # 0.5 K/mcL (0.0-0.6); Eosinophils % 5.6 %; Hematocrit 28.7 % (35.3-44.9); Hemoglobin 9.2 g/dL (11.5-15.4); Immature Granulocytes % 0.9 % (0-4); Immature Platelets 3.3 % (1.1-6.1); Lymphocytes % 22.7 %; Mean Corpuscular HGB Conc 32.1 g/dL (31.6-35.5); Mean Corpuscular Hemoglobin 28.1 pg (28.0-33.3); Mean Platelet Volume 10.6 fL (9.4-12.4); Monocytes # 0.7 K/mcL (0.0-1.3); Monocytes % 7.4 %; Neutrophils # 5.6 K/mcL (1.6-8.9); Platelet Count 262 K/mcL (140-400); Red Blood Count 3.27 M/mcL (3.82-4.97); Red Cell Distribution Width 19.6 % (11.5-14.5); Segmented Neutrophils % 63.2 %
[2016-09-08 06:41] LABS: Mean Corpuscular Volume 87.8 fL (83.0-100.0)
[2016-09-08] MEDS: Insulin LISPRO 300 UNITS/3 ML VIAL SQ SCH ×4 (08:36→21:02)
[2016-09-08] MEDS: Sennosides/Docusate Sodium TABLET PO SCH (08:51)
[2016-09-08] MEDS: Nystatin SUSP 5 ML UD.LIQ PO SCH (08:51)
[2016-09-08] MEDS: Aspirin Enteric Coated 325 MG Tablet PO SCH (08:51)
[2016-09-08] MEDS: Spironolactone 25 MG TABLET PO SCH (08:52)
[2016-09-08] MEDS: Ertapenem 1,000 MG in 0.9 % Sodium Chloride Mini Bag 100 ML IVPB SCH (08:52)
--- NOTE | 2016-09-08 14:19 | Internal Med Progress Note ---
Date of Encounter: 09/08/16 Time of Encounter: 14:16 - Assessment and plan (1) CVA (cerebral vascular accident) Current Visit: Yes Status: Acute Assessment and plan: Patient with possible CVA with left-sided weakness. MRI unable to be done due to presence of pacemaker. CT scan here did not show any acute infarct. Currently receiving physical therapy. Awaiting placement to skilled rehabilitation. On aspirin, statin per neurology recommendations. Qualifiers: CVA mechanism: unspecified Qualified Code(s): I63.9 - Cerebral infarction, unspecified (2) Acute kidney injury Current Visit: Yes Status: Resolved (3) CHF (congestive heart failure) Current Visit: Yes Status: Chronic Assessment and plan: Continue aspirin and statin and beta yen. We will resume Lasix at lower dose as her renal function has improved Qualifiers: Congestive heart failure type: systolic Congestive heart failure chronicity : chronic Qualified Code(s): I50.22 - Chronic systolic (congestive) heart failure (4) Angioedema Current Visit: Yes Status: Resolved Assessment and plan: Patient with angioedema requiring endotracheal intubation and mechanical ventilation, status post extubation. Likely from her DIANE inhibitor and ARB use. Angioedema has now resolved. Qualifiers: Encounter type: subsequent encounter Qualified Code(s): T78.3XXD - Angioneurotic edema, subsequent encounter (5) CAD (coronary artery disease) Current Visit: Yes Status: Chronic Assessment and plan: Continue aspirin, statin, beta yen. Not an DIANE inhibitor due to angioedema Qualifiers: Coronary Disease-Associated Artery/Lesion type: unspecified vessel or lesion type [place] vs. transplanted heart: [place] heart Associated angina: angina presence unspecified Qualified Code(s): I25.10 - Atherosclerotic heart disease of [place] coronary artery without angina pectoris (6) T2DM (type 2 diabetes mellitus) Current Visit: Yes Status: Chronic Assessment and plan: Blood sugars are well controlled. We will decrease sliding scale coverage as patient is having blood sugars in the 60s and 70s often. Qualifiers: Diabetes mellitus complication status: with unspecified complications Diabetes mellitus assisted insulin use: without assisted use Qualified Code( s): E11.8 - Type 2 diabetes mellitus with unspecified complications (7) Urinary tract infection Current Visit: Yes Status: Acute Assessment and plan: With Proteus and Klebsiella. Infectious disease recommends 5 day course of ertapenem. Day 4 today. Stop ertapenem after fifth dose tomorrow. Qualifiers: Urinary tract infection type: site unspecified Hematuria presence: without hematuria Qualified Code(s): N39.0 - Urinary tract infection, site not specified - Subjective Interval history: Patient continues to do well. His lying in bed and appears comfortable. Denies any new complaints at this time. Reports no pain. - Constitutional Vitals: Temp Pulse Resp BP Pulse Ox 97.4 F L 60 18 153/78 94 09/08/16 11:11 09/08/16 11:41 09/08/16 11:11 09/08/16 11:11 09/08/16 11:41 General appearance: Present: cooperative, A&O X 2, pleasant, no acute distress, obese, answers questions appropriately - Respiratory Respiratory exam: Present: CTAB. Absent: accessory muscle use, rales, rhonchi, wheezes - Cardiovascular Cardiovascular exam: Present: RRR, +S1, +S2. Absent: diastolic murmur, gallop, rubs, systolic murmur - GI/Abdominal GI/Abdominal exam: Present: normal bowel sounds, soft, no peritoneal signs. Absent: distended, tenderness - Extremities Exam Extremities exam: Present: pedal edema (Trace), warm, radial pulses palpable and symetrical. Absent: calf tenderness, cyanotic - Neurological Exam Neurological exam: Present: alert. Absent: facial droop, speech deficit Additional comments: Normal strength in right upper and lower extremity. 4/5 strength in left upper extremity 3/5 strength in left lower extremity - Skin Skin exam: Present: dry, intact Internal Medicine: Result - Labs CBC & Chem 7: 09/08/16 06:12 09/08/16 04:07 Labs: Short CBC 09/08/16 Range/Units 06:12 WBC 8.9 (4.3-11.1) K/mcL Hgb 9.2 L (11.5-15.4) g/dL Hct 28.7 L (35.3-44.9) % Plt Count 262 (140-400) K/mcL Neutrophils # 5.6 (1.6-8.9) K/mcL BMP 09/08/16 04:07 Sodium 141 Potassium 4.2 Chloride 109 Carbon Dioxide 22 BUN 36 H Creatinine 0.74 Glucose 80 Calcium 9.0 - ABG Interpretation ABG results: ABG ABG pH 7.51 pH Units (7.32-7.45) H 09/03/16 04:45 ABG pCO2 43 mmHg (35-45) 09/03/16 04:45 ABG pO2 114 mmHg (85-104) H 09/03/16 04:45 ABG O2 Saturation 99 % (95-98) H 09/03/16 04:45 PT/INR, D-dimer PT 12.5 Seconds (9.4-12.1) H 09/05/16 05:38 Consult Discharge Plan - Plan Referrals: Peg Gabriel, SERVICE WORKER HELPER [Primary Care Provider] - (SENT WEB REQUEST TO CANCEL THIS FOLLOW UP APPOINTMENT ON 09-08-16 @ 0902 09-09-16 @ [id number]) - Attending Attestation This document has been at least partially created by [employer] recognition technology by Dr. Burnett. Errors in grammar, wording or other phrases may exist. If errors are found after the documentation is signed, they will be addressed individually in the addendum section of this document when appropriate.
[2016-09-08] MEDS: amLODIPine 5 MG TABLET PO SCH (16:20)
[2016-09-08] MEDS: Insulin DETEMIR 100 UNIT/ML X5UNITS SQ SCH (20:23)
[2016-09-09 04:31] LABS: BUN/Creatinine Ratio 36 (6-26); Calcium 8.8 mg/dL (8.6-10.8); Carbon Dioxide 21 mEq/L (19-29); Chloride 111 mEq/L (98-109); Glucose 81 mg/dL (70-99); Osmolality,Calculated 290 (280-300); Potassium 3.5 mEq/L (3.5-4.5); Sodium 139 mEq/L (136-145); eGFR For African Americans > 60 (> 60); eGFR For Non-African Americans > 60 (> 60)
[2016-09-09 04:34] LABS: Blood Urea Nitrogen 22 mg/dL (7-20)
[2016-09-09] MEDS: *HR* Heparin 5,000 UNIT/ML VIAL SQ SCH ×2 (06:19→18:52)
[2016-09-09] MEDS: Ipratropium/Albuterol Neb 3 ML IH SCH ×4 (06:23→22:33)
[2016-09-09] MEDS: Aspirin Enteric Coated 325 MG Tablet PO SCH (07:55)
[2016-09-09] MEDS: Spironolactone 25 MG TABLET PO SCH (07:57)
[2016-09-09] MEDS: Furosemide 20 MG TABLET PO SCH (07:59)
[2016-09-09] MEDS: Insulin LISPRO 300 UNITS/3 ML VIAL SQ SCH ×4 (08:01→21:08)
[2016-09-09] MEDS: Ertapenem 1,000 MG in 0.9 % Sodium Chloride Mini Bag 100 ML IVPB SCH (08:02)
--- NOTE | 2016-09-09 11:16 | Infectious Disease Progress No ---
Date of Encounter: 09/09/16 Time of Encounter: 11:14 - Assessment and Plan (1) Leukocytosis Current Visit: Yes Status: Resolved Likely secondary to steroids administered for angioedema. Resolved. Qualifiers: Leukocytosis type: unspecified Qualified Code(s): D72.829 - Elevated white blood cell count, unspecified (2) UTI due to extended-spectrum beta lactamase (ESBL) producing Escherichia coli Current Visit: Yes Status: Acute Causative organism: ESBL Proteus and MDR K. pneumoniae per urine culture obtained 09/02/16. Currently, patient denies symptoms. There have been no s/s of pyelonephritis. [place] catheter removed 09/07/16. Continue contact precautions per policy. Continue Ertapenem 1 gram IV daily. Monitor renal function and dose-adjust antibiotics. (3) Angioedema Current Visit: Yes Status: Resolved Etiology unclear. Required intubation and ICU stay. Extubated 09/03/16. Appears to have resolved. Continue to monitor closely. Qualifiers: Encounter type: subsequent encounter Qualified Code(s): T78.3XXD - Angioneurotic edema, subsequent encounter (4) Tongue swelling Current Visit: Yes Status: Acute (5) Required emergent intubation Current Visit: Yes Status: Acute (6) Sick sinus syndrome Current Visit: Yes Status: Chronic (7) T2DM (type 2 diabetes mellitus) Current Visit: Yes Status: Chronic Qualifiers: Diabetes mellitus complication status: with unspecified complications Diabetes mellitus [employer] officer insulin use: without [employer] police officer use Qualified Code( s): E11.8 - Type 2 diabetes mellitus with unspecified complications (8) CAD (coronary artery disease) Current Visit: Yes Status: Chronic Qualifiers: Coronary Disease-Associated Artery/Lesion type: unspecified vessel or lesion type [place] vs. transplanted heart: [place] heart Associated angina: angina presence unspecified Qualified Code(s): I25.10 - Atherosclerotic heart disease of [place] coronary artery without angina pectoris (9) CHF (congestive heart failure) Current Visit: Yes Status: Chronic Qualifiers: Congestive heart failure type: systolic Congestive heart failure chronicity : chronic Qualified Code(s): I50.22 - Chronic systolic (congestive) heart failure (10) HTN (hypertension) Current Visit: Yes Status: Chronic Qualifiers: Hypertension type: essential hypertension Qualified Code(s): I10 - Essential (primary) hypertension - Subjective Interval history: Patient seen and examined. Weekend notes reviewed. No acute events noted. Patient lying in bed in no acute distress. Offers no complaints. Denies fevers, chills, or rigors. Denies chest pain, shortness of breath, or cough. Denies nausea, vomiting, or diarrhea. States last BM was this morning. Denies urinary complaints, but appears she is incontinent of urine per nursing documentation. Denies abdominal pain and states she was able to eat her breakfast this morning. She denies oral thrush or skin lesions. She states she thinks that swelling in her tongue has resolved. Infect Dis PN-Objective Data - Labs CBC & Chem 7: 09/08/16 06:12 09/09/16 04:03 Labs: Laboratory Results - last 24 hr 09/06/16 09/07/16 09/07/16 20:39 08:10 11:17 Sodium Potassium Chloride Carbon Dioxide BUN Creatinine Est GFR ( Amer) Est GFR (Non-Af Amer) BUN/Creatinine Ratio Glucose POC Glucose 177 H 78 192 H Calculated Osmolality Calcium 09/07/16 09/07/16 09/08/16 16:51 20:33 07:58 Sodium Potassium Chloride Carbon Dioxide BUN Creatinine Est GFR ( Amer) Est GFR (Non-Af Amer) BUN/Creatinine Ratio Glucose POC Glucose 70 145 H 84 Calculated Osmolality Calcium 09/08/16 09/08/16 09/08/16 11:07 16:31 20:25 Sodium Potassium Chloride Carbon Dioxide BUN Creatinine Est GFR ( Amer) Est GFR (Non-Af Amer) BUN/Creatinine Ratio Glucose POC Glucose 154 H 90 H 142 H Calculated Osmolality Calcium 09/09/16 04:03 Sodium 139 Potassium 3.5 Chloride 111 H Carbon Dioxide 21 BUN 22 H D Creatinine 0.61 Est GFR ( Amer) > 60 Est GFR (Non-Af Amer) > 60 BUN/Creatinine Ratio 36 H Glucose 81 POC Glucose Calculated Osmolality 290 Calcium 8.8 Cultures: Cultures 09/02/16 15:40 Urine Culture - Final Urine,Clean Catch Proteus mirablis ESBL Klebsiella pneumoniae MDRO 08/27/16 00:35 Blood Culture - Final Central Venous Catheter No growth. Serology 09/02/16 Range/Units 15:40 Urine Color Yellow (Yellow) Urine Clarity Cloudy A (Clear) Urine pH 7.0 (5.0-8.0) pH Units Ur Specific [place] 1.018 (1.010-1.025) Urine Protein 30 H (Neg-Trace) mg/dL Urine Glucose (UA) Normal (Normal) mg/dL Urine Ketones Negative (Negative) mg/dL Urine Blood Small H (Negative) Urine Nitrite Negative (Negative) Urine Bilirubin Negative (Negative) Urine Urobilinogen Normal (Normal) mg/dL Ur Leukocyte Esterase Large H (Negative) Urine Microscopic RBC 5-15 H (0-3) per hpf Urine Microscopic WBC TNTC H (0-3) per hpf Ur Squamous Epith Cells Many H (None-Few) per lpf Urine Bacteria Many H (None-Few) per hpf Hyaline Casts None Seen (None-Few) per lpf Ur Culture Indicated? YES A (NO) Exam - Constitutional Vitals: Temp Pulse Resp BP Pulse Ox 97.5 F L 59 16 102/66 96 09/09/16 06:43 09/09/16 10:24 09/09/16 06:43 09/09/16 06:43 09/09/16 06:43 General appearance: cooperative, no acute distress, obese - Head Head exam: Present: atraumatic, normal inspection, normocephalic - Eye Eye exam: Present: EOMI, normal appearance, PERRL Pupils: Present: normal accommodation - ENT ENT exam: Present: mucous membranes moist - Neck Neck exam: Present: normal inspection - Respiratory Respiratory exam: Present: CTAB. Absent: rales, respiratory distress, rhonchi, wheezes - Cardiovascular Cardiovascular exam: Present: RRR, +S1, +S2 - GI/Abdominal GI/Abdominal exam: Present: normal bowel sounds, soft. Absent: distended, tenderness - Extremities Exam Extremities exam: Present: normal inspection. Absent: joint swelling, pedal edema, tenderness - Neurological Exam Neurological exam: Present: alert, oriented X3, no focal deficits - Psychiatric Psychiatric exam: Present: normal affect, normal mood - Skin Skin exam: Present: dry, intact, normal color, warm - Additional findings Additional findings: EPIV noted to the RUE with transparent dressing C/D/I. Consult Discharge Plan - Plan Referrals: Peg, THREAD SPOOLER [Primary Care Provider] - (PATIENT IS GOING TO REHAB, NO PCP APPOINTMENT NEEDED) - Attending Attestation I examined this patient and my medical decision-making was reviewed with the SKIN LIFTER BACON/PA/Advanced Practice Nurse/Resident Physician. I agree with the documented findings, disposition and treatment plan as described except to the extent set forth below.
[2016-09-09] MEDS: amLODIPine 5 MG TABLET PO SCH (11:55)
--- NOTE | 2016-09-09 12:05 | Internal Med Progress Note ---
Date of Encounter: 09/09/16 Time of Encounter: 12:03 - Assessment and plan (1) Angioedema Current Visit: Yes Status: Resolved Assessment and plan: Patient with angioedema requiring endotracheal intubation and mechanical ventilation, status post extubation. Likely from her DIANE inhibitor and ARB use. Angioedema has now resolved. Qualifiers: Encounter type: subsequent encounter Qualified Code(s): T78.3XXD - Angioneurotic edema, subsequent encounter (2) CVA (cerebral vascular accident) Current Visit: Yes Status: Acute Assessment and plan: Patient with possible CVA with left-sided weakness. MRI unable to be done due to presence of pacemaker. CT scan here did not show any acute infarct. Currently receiving physical therapy. Awaiting placement to skilled rehabilitation. On aspirin, statin per neurology recommendations. Qualifiers: CVA mechanism: unspecified Qualified Code(s): I63.9 - Cerebral infarction, unspecified (3) UTI due to extended-spectrum beta lactamase (ESBL) producing Escherichia coli Current Visit: Yes Status: Acute Assessment and plan: Completed 5 days fof etapernem today ID recommendations noted (4) Diabetes mellitus Current Visit: Yes Status: Chronic Assessment and plan: FS acceptable Continue current regimen ADA diet Qualifiers: Diabetes mellitus type: type 2 Diabetes mellitus complication status: with unspecified complications Diabetes mellitus skilled nursing insulin use: without skilled nursing use Qualified Code(s): E11.8 - Type 2 diabetes mellitus with unspecified complications (5) HTN (hypertension) Current Visit: Yes Status: Chronic Assessment and plan: Continue current meds Qualifiers: Hypertension type: essential hypertension Qualified Code(s): I10 - Essential (primary) hypertension (6) CAD (coronary artery disease) Current Visit: Yes Status: Chronic Assessment and plan: Continue aspirin, statin, beta yen. Not an DIANE inhibitor due to angioedema Qualifiers: Coronary Disease-Associated Artery/Lesion type: unspecified vessel or lesion type [place] vs. transplanted heart: [place] heart Associated angina: angina presence unspecified Qualified Code(s): I25.10 - Atherosclerotic heart disease of [place] coronary artery without angina pectoris (7) CHF (congestive heart failure) Current Visit: Yes Status: Chronic Assessment and plan: Continue aspirin and statin and beta yen. Euvolemic, CR stable at current dose of lasix, continue same Qualifiers: Congestive heart failure type: systolic Congestive heart failure chronicity : chronic Qualified Code(s): I50.22 - Chronic systolic (congestive) heart failure (8) DVT prophylaxis Current Visit: Yes Status: Acute Assessment and plan: Heparin SQ - Subjective Interval history: Seen and evaluated at bedside with spouse Being managed for ARF secondary to angioedema from ACEI (resolved), MDRO/ESBL UTI, Suspected CVA, ( not confirmed with MRI due to presence of PCM) with residual Left extremity weakness. Denies new complains Awaiting rehab placement - Constitutional Vitals: Temp Pulse Resp BP Pulse Ox 97.9 F 60 18 153/76 97 09/09/16 11:22 09/09/16 11:22 09/09/16 11:22 09/09/16 11:22 09/09/16 11:22 General appearance: Present: cooperative, A&O X 2, pleasant, no acute distress, obese, answers questions appropriately Exam: Gen: Pleasant not in any form of distress Neuro: alert, oriented to place and person, disoriented to time. NO facial droop pr speech deficits, RLE power 2/5, LLE power 1/5, sensation intacts, RUE and LUE power at least 4/5 HEENT: Moist oral mucosa, acyanotic, no jaundice, JENS, no droop Chest: PCM. CTAB Heart: S1, S2 only, no m/g/r Abdomen: Soft, not tender Extremities: No edema Internal Medicine: Result - Labs CBC & Chem 7: 09/08/16 06:12 09/09/16 04:03 Labs: BMP 09/09/16 04:03 Sodium 139 Potassium 3.5 Chloride 111 H Carbon Dioxide 21 BUN 22 H D Creatinine 0.61 Glucose 81 Calcium 8.8 - ABG Interpretation ABG results: ABG ABG pH 7.51 pH Units (7.32-7.45) H 09/03/16 04:45 ABG pCO2 43 mmHg (35-45) 09/03/16 04:45 ABG pO2 114 mmHg (85-104) H 09/03/16 04:45 ABG O2 Saturation 99 % (95-98) H 09/03/16 04:45 PT/INR, D-dimer PT 12.5 Seconds (9.4-12.1) H 09/05/16 05:38 Consult Discharge Plan - Plan Referrals: Peg Gabriel ATOMIC PHYSICS PROFESSOR [Primary Care Provider] - (PATIENT IS GOING TO REHAB, NO PCP APPOINTMENT NEEDED)
[2016-09-09] MEDS: Melatonin 3 MG TABLET PO PRN (19:40)
[2016-09-10] MEDS: Ipratropium/Albuterol Neb 3 ML IH SCH ×3 (04:01→16:25)
[2016-09-10] MEDS: Insulin DETEMIR 100 UNIT/ML X5UNITS SQ SCH ×2 (04:25→22:21)
[2016-09-10] MEDS: *HR* Heparin 5,000 UNIT/ML VIAL SQ SCH ×2 (06:19→17:51)
[2016-09-10] MEDS: Ertapenem 1,000 MG in 0.9 % Sodium Chloride Mini Bag 100 ML IVPB SCH (08:30)
[2016-09-10] MEDS: amLODIPine 5 MG TABLET PO SCH (08:33)
[2016-09-10] MEDS: Spironolactone 25 MG TABLET PO SCH (08:33)
[2016-09-10] MEDS: Aspirin Enteric Coated 325 MG Tablet PO SCH (08:34)
[2016-09-10] MEDS: Furosemide 20 MG TABLET PO SCH (08:34)
--- NOTE | 2016-09-10 09:00 | Internal Med Progress Note ---
Date of Encounter: 09/10/16 Time of Encounter: 09:00 - Assessment and plan (1) Angioedema Current Visit: Yes Status: Resolved Assessment and plan: Patient admitted with angioedema requiring endotracheal intubation and mechanical ventilation, status post extubation. Likely from her DIANE inhibitor and ARB use. Angioedema has now resolved. Qualifiers: Encounter type: subsequent encounter Qualified Code(s): T78.3XXD - Angioneurotic edema, subsequent encounter (2) CVA (cerebral vascular accident) Current Visit: Yes Status: Acute Assessment and plan: Patient with possible CVA with left-sided weakness. MRI unable to be done due to presence of pacemaker. CT scan here did not show any acute infarct. Currently receiving physical therapy. Awaiting placement to skilled rehabilitation. On aspirin, statin per neurology recommendations. Qualifiers: CVA mechanism: unspecified Qualified Code(s): I63.9 - Cerebral infarction, unspecified (3) UTI due to extended-spectrum beta lactamase (ESBL) producing Escherichia coli Current Visit: Yes Status: Acute Assessment and plan: Completed 6 days of etapernem today ID recommendations noted D/c IV antibiotics (4) Diabetes mellitus Current Visit: Yes Status: Chronic Assessment and plan: FS acceptable Continue current regimen ADA diet Qualifiers: Diabetes mellitus type: type 2 Diabetes mellitus complication status: with unspecified complications Diabetes mellitus acoustical tile patternmaker insulin use: without acoustical tile patternmaker use Qualified Code(s): E11.8 - Type 2 diabetes mellitus with unspecified complications (5) HTN (hypertension) Current Visit: Yes Status: Chronic Assessment and plan: Continue current meds Qualifiers: Hypertension type: essential hypertension Qualified Code(s): I10 - Essential (primary) hypertension (6) CAD (coronary artery disease) Current Visit: Yes Status: Chronic Assessment and plan: Continue aspirin, statin, beta yen. Not an DIANE inhibitor due to angioedema Qualifiers: Coronary Disease-Associated Artery/Lesion type: unspecified vessel or lesion type [place] vs. transplanted heart: [place] heart Associated angina: angina presence unspecified Qualified Code(s): I25.10 - Atherosclerotic heart disease of [place] coronary artery without angina pectoris (7) CHF (congestive heart failure) Current Visit: Yes Status: Chronic Assessment and plan: Continue aspirin and statin and beta yen. Euvolemic, CR stable at current dose of lasix, continue same Qualifiers: Congestive heart failure type: systolic Congestive heart failure chronicity : chronic Qualified Code(s): I50.22 - Chronic systolic (congestive) heart failure (8) DVT prophylaxis Current Visit: Yes Status: Acute Assessment and plan: Heparin SQ - Subjective Interval history: Seen and evaluated Sitting out of bed in chair, pleasant, not in distress, follows commands equivocally Being managed for ARF secondary to angioedema from ACEI (resolved), MDRO/ESBL UTI, Suspected CVA, ( not confirmed with MRI due to presence of PCM) with residual Left extremity weakness. Denies new complains Awaiting rehab placement pre-certification - Constitutional Vitals: Temp Pulse Resp BP Pulse Ox 98.3 F 60 16 142/66 95 09/10/16 07:16 09/10/16 07:16 09/10/16 07:16 09/10/16 07:16 09/10/16 07:16 Gen: Pleasant not in any form of distress Neuro: alert, oriented to place and person, disoriented to time. NO facial droop pr speech deficits, RLE power 2/5, LLE power 1/5, sensation intacts, RUE and LUE power at least 4/5 HEENT: Moist oral mucosa, acyanotic, no jaundice, JENS, no droop Chest: PCM. CTAB Heart: S1, S2 only, no m/g/r Abdomen: Soft, not tender Extremities: No edema General appearance: Present: cooperative, A&O X 3, pleasant, no acute distress, obese, answers questions appropriately Internal Medicine: Result - Labs CBC & Chem 7: 09/08/16 06:12 09/09/16 04:03 - ABG Interpretation ABG results: ABG ABG pH 7.51 pH Units (7.32-7.45) H 09/03/16 04:45 ABG pCO2 43 mmHg (35-45) 09/03/16 04:45 ABG pO2 114 mmHg (85-104) H 09/03/16 04:45 ABG O2 Saturation 99 % (95-98) H 09/03/16 04:45 PT/INR, D-dimer PT 12.5 Seconds (9.4-12.1) H 09/05/16 05:38 Consult Discharge Plan - Plan Referrals: Peg Gabriel, STITCH BONDING MACHINE OPERATOR [Primary Care Provider] - (PATIENT IS GOING TO REHAB, NO PCP APPOINTMENT NEEDED)
[2016-09-10] MEDS: Insulin LISPRO 300 UNITS/3 ML VIAL SQ SCH ×4 (09:49→21:07)
--- NOTE | 2016-09-10 10:54 | Infectious Disease Progress No ---
Date of Encounter: 09/10/16 Time of Encounter: 10:51 - Assessment and Plan (1) Leukocytosis Status: Resolved Likely secondary to steroids administered for angioedema. Resolved. Qualifiers: Leukocytosis type: unspecified Qualified Code(s): D72.829 - Elevated white blood cell count, unspecified (2) UTI due to extended-spectrum beta lactamase (ESBL) producing Escherichia coli Status: Resolved Causative organism: ESBL Proteus and MDR K. pneumoniae per urine culture obtained 09/02/16. Currently, patient denies symptoms. There have been no s/s of pyelonephritis. [place] catheter removed 09/07/16. Continue contact precautions per policy. Continue Ertapenem 1 gram IV daily (day 6). Okay to discontinue when ready for discharge. If not discharged prior to 09/11/16, discontinue after dose on 09/11/16. Monitor renal function and dose-adjust antibiotics. (3) Angioedema Status: Resolved Etiology unclear. Required intubation and ICU stay. Extubated 09/03/16. Appears to have resolved. Continue to monitor closely. Qualifiers: Encounter type: subsequent encounter Qualified Code(s): T78.3XXD - Angioneurotic edema, subsequent encounter (4) Tongue swelling Status: Acute (5) Required emergent intubation Status: Acute (6) Sick sinus syndrome Status: Chronic (7) T2DM (type 2 diabetes mellitus) Status: Chronic Qualifiers: Diabetes mellitus complication status: with unspecified complications Diabetes mellitus watermelon harvesting supervisor insulin use: without watermelon harvesting supervisor use Qualified Code( s): E11.8 - Type 2 diabetes mellitus with unspecified complications (8) CAD (coronary artery disease) Status: Chronic Qualifiers: Coronary Disease-Associated Artery/Lesion type: unspecified vessel or lesion type [place] vs. transplanted heart: [place] heart Associated angina: angina presence unspecified Qualified Code(s): I25.10 - Atherosclerotic heart disease of [place] coronary artery without angina pectoris (9) CHF (congestive heart failure) Status: Chronic Qualifiers: Congestive heart failure type: diastolic Congestive heart failure chronicity: chronic Qualified Code(s): I50.32 - Chronic diastolic (congestive ) heart failure (10) HTN (hypertension) Status: Chronic Qualifiers: Hypertension type: essential hypertension Qualified Code(s): I10 - Essential (primary) hypertension - Subjective Interval history: Patient seen and examined. No acute events noted overnight. Patient sitting up in the bedside chair. Offers no complaints. Denies fevers, chills, or rigors. Denies chest pain, shortness of breath, or cough. Denies nausea, vomiting, or diarrhea. Denies urinary complaints, but appears she is incontinent of urine per nursing documentation. Denies abdominal pain and states she was able to eat her breakfast this morning. She denies oral thrush or skin lesions. She states she thinks that swelling in her tongue has resolved. The patient is very hard of hearing and is difficult to know if the patient is hearing/understanding my questions. Infect Dis PN-Objective Data - Labs CBC & Chem 7: 09/08/16 06:12 09/09/16 04:03 Labs: Laboratory Results - last 24 hr 09/09/16 09/09/16 09/09/16 06:46 11:25 16:13 POC Glucose 83 106 H 146 H 09/09/16 20:49 POC Glucose 123 H Cultures: Cultures 09/02/16 15:40 Urine Culture - Final Urine,Clean Catch Proteus mirablis ESBL Klebsiella pneumoniae MDRO 08/27/16 00:35 Blood Culture - Final Central Venous Catheter No growth. Serology 09/02/16 Range/Units 15:40 Urine Color Yellow (Yellow) Urine Clarity Cloudy A (Clear) Urine pH 7.0 (5.0-8.0) pH Units Ur Specific [place] 1.018 (1.010-1.025) Urine Protein 30 H (Neg-Trace) mg/dL Urine Glucose (UA) Normal (Normal) mg/dL Urine Ketones Negative (Negative) mg/dL Urine Blood Small H (Negative) Urine Nitrite Negative (Negative) Urine Bilirubin Negative (Negative) Urine Urobilinogen Normal (Normal) mg/dL Ur Leukocyte Esterase Large H (Negative) Urine Microscopic RBC 5-15 H (0-3) per hpf Urine Microscopic WBC TNTC H (0-3) per hpf Ur Squamous Epith Cells Many H (None-Few) per lpf Urine Bacteria Many H (None-Few) per hpf Hyaline Casts None Seen (None-Few) per lpf Ur Culture Indicated? YES A (NO) Exam - Constitutional Vitals: Temp Pulse Resp BP Pulse Ox 98.3 F 63 16 142/66 95 09/10/16 07:16 09/10/16 08:52 09/10/16 07:16 09/10/16 07:16 09/10/16 07:16 General appearance: average body habitus, cooperative, no acute distress - Head Head exam: Present: atraumatic, normal inspection, normocephalic - Eye Eye exam: Present: EOMI, normal appearance, PERRL Pupils: Present: normal accommodation - ENT ENT exam: Present: mucous membranes moist - Neck Neck exam: Present: normal inspection - Respiratory Respiratory exam: Present: CTAB. Absent: rales, respiratory distress, rhonchi, wheezes - Cardiovascular Cardiovascular exam: Present: RRR, +S1, +S2 - GI/Abdominal GI/Abdominal exam: Present: normal bowel sounds, soft. Absent: distended, tenderness - Extremities Exam Extremities exam: Present: normal inspection. Absent: joint swelling, pedal edema, tenderness - Neurological Exam Neurological exam: Present: alert, no focal deficits. Absent: oriented X3 ( Oriented to person only.) - Psychiatric Psychiatric exam: Present: normal affect, normal mood - Skin Skin exam: Present: dry, intact, normal color, warm Consult Discharge Plan - Plan Instructions: Pacemaker (DC), Chronic Hypertension (DC) Referrals: Peg Gabriel, SALARY MANAGER [Primary Care Provider] - (PATIENT IS GOING TO REHAB, NO PCP APPOINTMENT NEEDED) - Attending Attestation I examined this patient and my medical decision-making was reviewed with the EMERGENCY MEDICAL TECHNICIAN BASIC/PA/Advanced Practice Nurse/Resident Physician. I agree with the documented findings, disposition and treatment plan as described except to the extent set forth below.
[2016-09-10] MEDS: Melatonin 3 MG TABLET PO PRN (20:16)
[2016-09-10] MEDS ORDERED: Ipratropium/Albuterol Neb 3 ML IH PRN (21:27)
--- NOTE | 2016-09-10 21:28 | Event Note ---
Date of Encounter: 09/10/16 Time of Encounter: 21:27 I was paged as pt. trying to get out of bed and leave On arrival, pt. has feet dangling from bed and trying to get out She says - My is sick and I need to leave Unable to orient her Will ask for a sitter for safety Haldol 5 mg PO q8h prn agitation
[2016-09-11] MEDS: *HR* Heparin 5,000 UNIT/ML VIAL SQ SCH (06:09)
[2016-09-11] MEDS: amLODIPine 5 MG TABLET PO SCH (08:26)
[2016-09-11] MEDS: Spironolactone 25 MG TABLET PO SCH (08:26)
[2016-09-11] MEDS: Aspirin Enteric Coated 325 MG Tablet PO SCH (08:26)
[2016-09-11] MEDS: Furosemide 20 MG TABLET PO SCH (08:26)
[2016-09-11] MEDS: Insulin LISPRO 300 UNITS/3 ML VIAL SQ SCH (08:27)
[2016-09-11] MEDS ORDERED: risperiDONE 0.25 MG TABLET PO SCH (09:00)
--- NOTE | 2016-09-11 10:51 | Discharge Summary ---
Date of Encounter: 09/11/16 Time of Encounter: 10:50 - Discharge Diagnosis (1) Angioedema Priority: Primary Status: Resolved Qualifiers: Encounter type: subsequent encounter Qualified Code(s): T78.3XXD - Angioneurotic edema, subsequent encounter (2) CVA (cerebral vascular accident) Priority: Primary Status: Acute Qualifiers: CVA mechanism: unspecified Qualified Code(s): I63.9 - Cerebral infarction, unspecified (3) UTI due to extended-spectrum beta lactamase (ESBL) producing Escherichia coli Priority: Secondary Status: Resolved (4) Diabetes mellitus Priority: Secondary Status: Chronic Qualifiers: Diabetes mellitus type: type 2 Diabetes mellitus complication status: with unspecified complications Diabetes mellitus intermediate accountant insulin use: without group home use Qualified Code(s): E11.8 - Type 2 diabetes mellitus with unspecified complications (5) HTN (hypertension) Priority: Secondary Status: Chronic Qualifiers: Hypertension type: essential hypertension Qualified Code(s): I10 - Essential (primary) hypertension (6) CAD (coronary artery disease) Priority: Secondary Status: Chronic Qualifiers: Coronary Disease-Associated Artery/Lesion type: unspecified vessel or lesion type [place] vs. transplanted heart: [place] heart Associated angina: angina presence unspecified Qualified Code(s): I25.10 - Atherosclerotic heart disease of [place] coronary artery without angina pectoris (7) CHF (congestive heart failure) Priority: Secondary Status: Chronic Qualifiers: Congestive heart failure type: diastolic Congestive heart failure chronicity: chronic Qualified Code(s): I50.32 - Chronic diastolic (congestive ) heart failure (8) DVT prophylaxis Priority: Secondary Status: Acute - Discharge Medications Home Medications: Albuterol Neb [Proventil Neb] 2.5 mg IH TID 03/29/15 [History] Albuterol Sulfate [Albuterol Inhaler] 2 puff IH Q4HR PRN 03/29/15 [History] Atorvastatin Calcium [Lipitor] 20 mg PO HS 03/29/15 [History] [place]-3S/Dha/Epa/Fish Oil [Fish Oil 1,200 mg Softgel] 1 cap PO DAILY 03/29/15 [ History] Omeprazole [PriLOSEC] 40 mg PO DAILY 03/29/15 [History] Aspirin Enteric Coated [Aspirin EC] 81 mg PO DAILY 30 Days 03/30/15 [Rx] Carvedilol [Coreg] 25 mg PO BID 08/26/16 [History] Docusate [Colace] 100 mg PO DAILY PRN 08/26/16 [History] Ferrous Sulfate 325 mg PO BIDWM 08/26/16 [History] Furosemide [Lasix] 40 mg PO DAILY 08/26/16 [History] Melatonin 5 mg PO HS PRN 08/26/16 [History] Nitroglycerin [Nitrostat] 0.4 mg SL Q5M PRN 08/26/16 [History] Oxygen 2 l NS AD 08/26/16 [History] Potassium Chloride [K-Tab ER] 20 meq PO BID 08/26/16 [History] Spironolactone [Aldactone] 12.5 mg PO DAILY 08/26/16 [History] amLODIPine [Norvasc] 5 mg PO DAILY tablet 09/11/16 [Rx] risperiDONE [RisperDAL] 0.5 mg PO BID #0 tablet 09/11/16 [Rx] Allergies/Adverse Reactions: Allergies DIANE Inhibitors Allergy (Severe, Verified 08/27/16 07:09) Swelling of Lip/Tongue/Throat Severe angioedema 08/26/2016 ARB-Angiotensin Receptor Antagonist Allergy (Severe, Verified 08/27/16 07:09) Swelling of Lip/Tongue/Throat Severe angioedema 08/27/2016 plastic tape Allergy (Uncoded 08/26/16 15:23) See Comments Date of admission: 08/26/16 17:26 Primary care physician: Peg Gabriel CNP Consults: 08/26/16 17:54 Consult to Allergy/Immunology [CONS] Routine Consulting Provider: Allergy [facility] Reason for Consult: Angioedema. Call Completed: No 08/26/16 18:29 Consult to Slurry Plant Operator [CONS] Routine Reason for SW Consult: discharge planning. 08/28/16 11:43 consult to farm operations manager [Consult to Nutrition] [CONS] Routine Comment: Consulting Provider: NUTRITION Reason for Dietary Consult: TF Start and Manage 09/02/16 10:34 Consult to Invasive Line Access Team [CONS] Routine Reason for Consult: limited vascular access Line Type: EPIV 09/04/16 08:26 Consult to Occupational Therapy [CONS] Routine Comment: Evaluate, develop and implement POC Reason for Consult: Evaluate and treat Consult to Physical Therapy [CONS] Routine Comment: Evaluate, develop and implement POC Reason for Consult: Evaluate and treat 09/04/16 10:53 Consult to Speech Therapy [CONS] Routine Comment: Evaluate, develop and implement POC Reason for Consult: Patient with recent angioedema and intubation for 9 days. Now significantly deconditioned. Noted to not be swallowing oral secretions. Passed bedside swallow eval per ICU nurse. Call Completed: No 09/04/16 15:40 Consult to Neurology [CONS] Routine Consulting Provider: Neu[facility] Reason for Consult: Change in neuro exam. Time Notified: 15:40 Call Completed: Yes 09/05/16 07:34 Consult to Infectious Diseases [CONS] Routine Consulting Provider: Infectious Disease Lidya Reason for Consult: UTI klebsiella MDRO/ Proteus ESBL Time Notified: 07:34 Call Completed: Yes Discharging clinician: Yaakov Agudelo Anticipated date of discharge: 09/11/16 - Patient Status Disposition: Transfer SNF Condition: Fair Functional capacity at discharge: bed bound Overall status at discharge: patient is progressing back to baseline - Discharge Instructions Follow Up With: Peg Gabriel, MANAGER INVENTORY CONTROL [Primary Care Provider] - (PATIENT IS GOING TO REHAB, NO PCP APPOINTMENT NEEDED) - Diet and Activity Activity: as per physical therapy Diet: diabetic diet, low fat, low cholesterol, low salt diet Interval History: See below Hospital course: Ms. Pardo is a 75 year old female with PMH of CAD, CHFrEF, HTN, sick sinus syndrome with BV-ICD in place presented to [facility] with angioedema suspected to be due to ingestion of ACEI/ARB She was admitted and managed for acute hypoxic respiratory failure secondary to angioedema. She was intubated in the ED (08/26/2016) for airway protection. Successfully extubated in the OR with ENT on 09/03/2016. Patient has a hx of CHFrEF, ECHO done this admission showed EF of 60-65% improved from 04/2015 when EF was 35-40%. After successful extubation, she was found to have developed L sided weakness, immediate CT scan done was negative for infarcts, however a suspicion of CVA was made, unable to obtain Brain MRI due to presence of AICD/PCM, patient was seen by neurologist who recommended ASA/Statin. Patient remains with hemiparesis. Hospital stay was also complicated by ESBL UTI, for which she received 6 days of [place], she is no longer symptomatic She is seen by PT and recommendation is for inpatient rehabilitation She is seen and evaluated at bedside this morning, with no new complains Patient had occasional episodes of confusion which seem to be at her baseline. Her endorsed she has had a poor mental status for the past year She is clinically stable for transfer to SNF, home medications have been reconciled Follow up with PCP after discharge from rehab - Time Spent with Patient Total time spent providing and/or coordinating discharge services: Greater than 30 minutes (40 minutes spent) - Constitutional Vitals: Temp Pulse Resp BP Pulse Ox 98.4 F 65 16 135/54 93 09/11/16 07:05 09/11/16 08:30 09/11/16 08:30 09/11/16 08:05 09/11/16 08:30 General appearance: Present: cooperative, A&O X 2, pleasant, no acute distress, obese, answers questions appropriately - Head Head exam: Present: atraumatic, normocephalic - Eye Eye exam: Present: PERRL, conjuntiva pink, sclera anicteric Pupils: Present: PERRL - Neck Neck exam general surgery: Present: supple, trachea midline. Absent: lymphadenopathy - Respiratory Respiratory exam: Present: CTAB. Absent: accessory muscle use, rales, rhonchi, wheezes - Cardiovascular Cardiovascular exam: Present: RRR, +S1, +S2. Absent: diastolic murmur, gallop, rubs, systolic murmur - GI/Abdominal GI/Abdominal exam: Present: normal bowel sounds, soft, no peritoneal signs. Absent: distended, tenderness - Extremities Exam Extremities exam: Present: warm, radial pulses palpable and symetrical. Absent : calf tenderness, cyanotic, pedal edema - Neurological Exam Neurological exam: Present: alert, CN II-XII intact, motor sensory deficit, oriented X3. Absent: strengths equal and symetr throughout, pronater drift, facial droop, speech deficit - Skin Skin exam: Present: dry, intact
--- NOTE | 2016-09-11 10:53 | Physician Discharge Referral ---
ExtendedCare Referral Info Transfer To: [facility] re[facility] Provider in Charge: Dr. Agudelo Provider in Charge after Transfer: PCP Institutional Level of Care: Skilled - Diagnosis (1) Angioedema Priority: Primary Status: Resolved (2) CVA (cerebral vascular accident) Priority: Primary Status: Acute (3) UTI due to extended-spectrum beta lactamase (ESBL) producing Escherichia coli Priority: Primary Status: Resolved (4) Diabetes mellitus Priority: Secondary Status: Chronic (5) HTN (hypertension) Priority: Secondary Status: Chronic (6) CAD (coronary artery disease) Priority: Secondary Status: Chronic (7) CHF (congestive heart failure) Priority: Secondary Status: Chronic (8) DVT prophylaxis Priority: Secondary Status: Acute Prognosis: Fair Aware of Diagnosis: Patient, Family Aware of Prognosis: Patient, Family - Transfer Medications Home Medications: Albuterol Neb [Proventil Neb] 2.5 mg IH TID 03/29/15 [History] Albuterol Sulfate [Albuterol Inhaler] 2 puff IH Q4HR PRN 03/29/15 [History] Atorvastatin Calcium [Lipitor] 20 mg PO HS 03/29/15 [History] [place]-3S/Dha/Epa/Fish Oil [Fish Oil 1,200 mg Softgel] 1 cap PO DAILY 03/29/15 [ History] Omeprazole [PriLOSEC] 40 mg PO DAILY 03/29/15 [History] Aspirin Enteric Coated [Aspirin EC] 81 mg PO DAILY 30 Days 03/30/15 [Rx] Carvedilol [Coreg] 25 mg PO BID 08/26/16 [History] Docusate [Colace] 100 mg PO DAILY PRN 08/26/16 [History] Ferrous Sulfate 325 mg PO BIDWM 08/26/16 [History] Furosemide [Lasix] 40 mg PO DAILY 08/26/16 [History] Melatonin 5 mg PO HS PRN 08/26/16 [History] Nitroglycerin [Nitrostat] 0.4 mg SL Q5M PRN 08/26/16 [History] Oxygen 2 l NS AD 08/26/16 [History] Potassium Chloride [K-Tab ER] 20 meq PO BID 08/26/16 [History] Spironolactone [Aldactone] 12.5 mg PO DAILY 08/26/16 [History] amLODIPine [Norvasc] 5 mg PO DAILY tablet 09/11/16 [Rx] risperiDONE [RisperDAL] 0.5 mg PO BID #0 tablet 09/11/16 [Rx] Allergies/Adverse Reactions: Allergies DIANE Inhibitors Allergy (Severe, Verified 08/27/16 07:09) Swelling of Lip/Tongue/Throat Severe angioedema 08/26/2016 ARB-Angiotensin Receptor Antagonist Allergy (Severe, Verified 08/27/16 07:09) Swelling of Lip/Tongue/Throat Severe angioedema 08/27/2016 plastic tape Allergy (Uncoded 08/26/16 15:23) See Comments - Respiratory Orders Smoking Cessation: Smoking cessation has been advised. For more information, call the [place] Tobacco Quit Line at 9-566-BPNW-NOW. - Advance Directives Code Status: Full Code - Mobility Orders Other (as per PT) - Rehabiliation Orders Rehab Potential: Fair Rehab Orders: Evaluation for Physical Therapy - Diet Orders Cardiac CERTIFICATION: I certify that the transfer of the above named patient to an Extended Care Facility is necessary for the continuing treatment of the diagnosis listed. The above information is true and accurate reflection of patient's current condition. Confidential - Redisclosure prohibited without a patient's written consent.
[2016-09-11 10:59] VITALS: BP 109/60
--- NOTE | 2016-09-11 11:41 | Infectious Disease Progress No ---
Date of Encounter: 09/11/16 Time of Encounter: 11:41 - Assessment and Plan (1) Leukocytosis Status: Resolved Likely secondary to steroids administered for angioedema. Resolved. Qualifiers: Leukocytosis type: unspecified Qualified Code(s): D72.829 - Elevated white blood cell count, unspecified (2) UTI due to extended-spectrum beta lactamase (ESBL) producing Escherichia coli Status: Resolved Causative organism: ESBL Proteus and MDR K. pneumoniae per urine culture obtained 09/02/16. Currently, patient denies symptoms. There have been no s/s of pyelonephritis. [place] catheter removed 09/07/16. Continue contact precautions per policy. The patient completed a 7 day course of IV Ertapenem and it has been discontinued. The patient is asymptomatic. Agree with stopping antibiotics and observing. No further recommendations from the ID team. Will sign off. Please re-consult if needed. (3) Angioedema Status: Resolved Etiology unclear. Required intubation and ICU stay. Extubated 09/03/16. Appears to have resolved. Continue to monitor closely. Qualifiers: Encounter type: subsequent encounter Qualified Code(s): T78.3XXD - Angioneurotic edema, subsequent encounter (4) Tongue swelling Status: Acute (5) Required emergent intubation Status: Acute (6) Sick sinus syndrome Status: Chronic (7) T2DM (type 2 diabetes mellitus) Status: Chronic Qualifiers: Diabetes mellitus complication status: with unspecified complications Diabetes mellitus mcc insulin use: without mcc use Qualified Code( s): E11.8 - Type 2 diabetes mellitus with unspecified complications (8) CAD (coronary artery disease) Status: Chronic Qualifiers: Coronary Disease-Associated Artery/Lesion type: unspecified vessel or lesion type [place] vs. transplanted heart: [place] heart Associated angina: angina presence unspecified Qualified Code(s): I25.10 - Atherosclerotic heart disease of [place] coronary artery without angina pectoris (9) CHF (congestive heart failure) Status: Chronic Qualifiers: Congestive heart failure type: diastolic Congestive heart failure chronicity: chronic Qualified Code(s): I50.32 - Chronic diastolic (congestive ) heart failure (10) HTN (hypertension) Status: Chronic Qualifiers: Hypertension type: essential hypertension Qualified Code(s): I10 - Essential (primary) hypertension - Subjective Interval history: Patient seen and examined. Overnight, the patient became confused, insisting she needed to leave the hospital. Currently, the patient is resting in bed with her at the bedside. She offers no complaints. Denies fevers, chills, or rigors. Denies chest pain, shortness of breath, or cough. Denies nausea, vomiting, or diarrhea. Denies urinary complaints, but appears she is incontinent of urine per nursing documentation. Denies abdominal pain. She denies oral thrush or skin lesions. She states she thinks that swelling in her tongue has resolved. The patient is very hard of hearing and is difficult to know if the patient is hearing/understanding my questions. Infect Dis PN-Objective Data - Labs CBC & Chem 7: 09/08/16 06:12 09/09/16 04:03 Labs: Laboratory Results - last 24 hr 09/10/16 09/10/16 09/10/16 07:20 11:32 16:57 POC Glucose 95 H 119 H 123 H 09/10/16 20:51 POC Glucose 185 H Cultures: Cultures 09/02/16 15:40 Urine Culture - Final Urine,Clean Catch Proteus mirablis ESBL Klebsiella pneumoniae MDRO 08/27/16 00:35 Blood Culture - Final Central Venous Catheter No growth. Serology 09/02/16 Range/Units 15:40 Urine Color Yellow (Yellow) Urine Clarity Cloudy A (Clear) Urine pH 7.0 (5.0-8.0) pH Units Ur Specific [place] 1.018 (1.010-1.025) Urine Protein 30 H (Neg-Trace) mg/dL Urine Glucose (UA) Normal (Normal) mg/dL Urine Ketones Negative (Negative) mg/dL Urine Blood Small H (Negative) Urine Nitrite Negative (Negative) Urine Bilirubin Negative (Negative) Urine Urobilinogen Normal (Normal) mg/dL Ur Leukocyte Esterase Large H (Negative) Urine Microscopic RBC 5-15 H (0-3) per hpf Urine Microscopic WBC TNTC H (0-3) per hpf Ur Squamous Epith Cells Many H (None-Few) per lpf Urine Bacteria Many H (None-Few) per hpf Hyaline Casts None Seen (None-Few) per lpf Ur Culture Indicated? YES A (NO) Exam - Constitutional Vitals: Temp Pulse Resp BP Pulse Ox 98.0 F 59 14 109/60 94 09/11/16 10:55 09/11/16 10:55 09/11/16 10:55 09/11/16 10:55 09/11/16 10:55 General appearance: average body habitus, cooperative, no acute distress - Head Head exam: Present: atraumatic, normal inspection, normocephalic - Eye Eye exam: Present: EOMI, normal appearance, PERRL Pupils: Present: normal accommodation - ENT ENT exam: Present: mucous membranes moist - Neck Neck exam: Present: normal inspection - Respiratory Respiratory exam: Present: CTAB. Absent: rales, respiratory distress, rhonchi, wheezes - Cardiovascular Cardiovascular exam: Present: RRR, +S1, +S2 - GI/Abdominal GI/Abdominal exam: Present: normal bowel sounds, soft. Absent: distended, tenderness - Extremities Exam Extremities exam: Present: normal inspection. Absent: joint swelling, pedal edema, tenderness - Neurological Exam Neurological exam: Present: alert, oriented X3, no focal deficits - Psychiatric Psychiatric exam: Present: normal affect, normal mood - Skin Skin exam: Present: dry, intact, normal color, warm Consult Discharge Plan - Plan Instructions: Pacemaker (DC), Chronic Hypertension (DC) Referrals: Peg Gabriel, REHAB SERVICES AIDE [Primary Care Provider] - (PATIENT IS GOING TO REHAB, NO PCP APPOINTMENT NEEDED) - Attending Attestation I examined this patient and my medical decision-making was reviewed with the ACCOUNTS RECEIVABLE ASSOCIATE/PA/Advanced Practice Nurse/Resident Physician. I agree with the documented findings, disposition and treatment plan as described except to the extent set forth below.
== END 2016-09-11 14:19 | DRG 207 ==
LOC: EMEROO 14:32 → SUATTDRO 17:26 → ICNU 17:26 → 2NNU 09-04 10:07
PROVIDERS: ADMIT Internal Medicine Hospice and Palliative Medicine; ATTEND Internal Medicine

== ENCOUNTER 2018-10-29 13:46 | Inpatient (IN) ==
[2018-10-29 14:37] LABS: Basophils # 0.1 K/mcL (0.0-0.2); Basophils % 0.6 %; Eosinophils # 0.1 K/mcL (0.0-0.6); Eosinophils % 0.2 %; Hematocrit 38.6 % (35.3-44.9); Hemoglobin 12.6 g/dL (11.5-15.4); Immature Granulocytes % 0.9 % (0-4); Lymphocytes # 1.2 K/mcL (0.6-4.6); Lymphocytes % 5.4 %; Mean Corpuscular HGB Conc 32.6 g/dL (31.6-35.5); Mean Corpuscular Hemoglobin 31.7 pg (28.0-33.3); Mean Platelet Volume 10.2 fL (9.4-12.4); Monocytes # 1.4 K/mcL (0.0-1.3); Monocytes % 6.6 %; Neutrophils # 18.6 K/mcL (1.6-8.9); Platelet Count 219 K/mcL (140-400); Red Blood Count 3.98 M/mcL (3.82-4.97); Red Cell Distribution Width 12.7 % (11.5-14.5); Segmented Neutrophils % 86.3 %; White Blood Count 21.6 K/mcL (4.3-11.1)
[2018-10-29 14:53] LABS: Albumin 4.2 g/dL (3.5-5.7); Albumin/Globulin Ratio 1.3 (1.1-2.2); Bilirubin,Total 1.5 mg/dL (0.3-1.0); Calcium 9.6 mg/dL (8.6-10.3); Globulin 3.2 g/dL (2.4-3.5); Potassium 4.1 mEq/L (3.5-5.1); Total Protein 7.4 g/dL (6.4-8.9)
[2018-10-29] MEDS ORDERED: 0.9 % Sodium Chloride 1,000 ML IVC ONE ×2 (15:14→16:05)
[2018-10-29] MEDS ORDERED: Piperacillin/Tazobactam 3.375 GM in Water for inj. (sterile) 20 ML IVP ONE (16:04)
[2018-10-29 16:14] LABS: Bilirubin,Urine Negative (Negative); Blood,Urine Negative (Negative); Clarity,Urine Clear (Clear); Color,Urine Yellow (Yellow); Glucose,Urine (UA) Normal (Normal); Ketones,Urine Negative (Negative); Leukocyte Esterase,Urine Negative (Negative); Nitrite,Urine Negative (Negative); Protein,Urine Negative (Neg-Trace); Specific Gravity,Urine 1.009 (1.010-1.025); Urobilinogen,Urine Normal (Normal)
[2018-10-29] MEDS ORDERED: Piperacillin/Tazobactam 3.375 GM in 0.9 % Sodium Chloride Mini Bag 100 ML IVPB ONE (17:00)
[2018-10-29] MEDS ORDERED: Naloxone 0.4 MG/ML INJ IVP PRN (17:39)
[2018-10-29] MEDS ORDERED: Furosemide 20 MG/2 ML VIAL IVP SCH (18:12)
[2018-10-29] MEDS ORDERED: cefTRIAXone 1,000 MG in Water for inj. (sterile) 10 ML IVP SCH (18:17)
[2018-10-29] MEDS ORDERED: D5% in Water 1,000 ML IVC PRN (18:31)
[2018-10-29] MEDS ORDERED: *HR* Dextrose 50 % in Water (Syg) 50 ML SYRINGE IVP PRN (18:31)
[2018-10-29] MEDS ORDERED: Dextrose Gel 15 GM/37.5 ML TUBE PO PRN ×2 (18:31)
[2018-10-29] MEDS ORDERED: Ondansetron 4 MG/2 ML VIAL IVP PRN (18:34)
[2018-10-29] MEDS ORDERED: Acetaminophen 325 MG TABLET PO PRN (18:35)
[2018-10-29] MEDS ORDERED: Azithromycin 500 MG in D5% in Water 250 ML IVPB SCH (19:00)
[2018-10-29] MEDS: *HR* Heparin 5,000 UNIT/ML VIAL SQ SCH (20:11)
[2018-10-29] MEDS: Furosemide 20 MG/2 ML VIAL IVP SCH (20:11)
[2018-10-29] MEDS ORDERED: Perflutren Lipid Microsphere 1.3 ML in 0.9 % Sodium Chloride 8.7 ML IVP ONE (22:18)
[2018-10-30] MEDS: Piperacillin/Tazobactam 3.375 GM in 0.9 % Sodium Chloride Mini Bag 100 ML IVPB SCH ×3 (00:13→17:23)
[2018-10-30] MEDS: Insulin LISPRO 300 UNITS/3 ML VIAL SQ SCH ×4 (00:26→18:38)
[2018-10-30 01:56] LABS: Acinetobacter baumannii by PCR Not Detected (Not Detect); Candida albicans by PCR Not Detected (Not Detect); Candida glabrata by PCR Not Detected (Not Detect); Candida krusei by PCR Not Detected (Not Detect); Candida parapsilosis by PCR Not Detected (Not Detect); Candida tropicalis by PCR Not Detected (Not Detect); Enterobacter cloacae Cmplx PCR Not Detected (Not Detect); Enterobacteriaceae by PCR Not Detected (Not Detect); Enterococcus by PCR Not Detected (Not Detect); Escherichia coli by PCR Not Detected (Not Detect); Klebsiella oxytoca by PCR Not Detected (Not Detect); Klebsiella pneumoniae by PCR Not Detected (Not Detect); Proteus by PCR Not Detected (Not Detect); Pseudomonas aeruginosa by PCR Not Detected (Not Detect); Serratia marcescens by PCR Not Detected (Not Detect); Staphylococcus aureus by PCR Not Detected (Not Detect); Staphylococcus by PCR Not Detected (Not Detect); Streptococcus agalactiae(B)PCR Not Detected (Not Detect); Streptococcus pneumoniae PCR Not Detected (Not Detect); Streptococcus pyogenes (A) PCR Not Detected (Not Detect); blaKPC Carbapenem-Resist Gene Not Detected (Not Detect); mecA Methicillin-Resist Gene Not Detected (Not Detect); vanA/B Vancomycin-Resist Genes Not Detected (Not Detect)
[2018-10-30 01:57] LABS: Streptococcus by PCR DETECTED (Not Detect)
[2018-10-30] MEDS ORDERED: Ibuprofen 400 MG TABLET PO ONE (02:24)
[2018-10-30 02:51] LABS: Basophils # 0.1 K/mcL (0.0-0.2); Basophils % 0.4 %; Hematocrit 36.9 % (35.3-44.9); Hemoglobin 12.4 g/dL (11.5-15.4); Immature Granulocytes % 1.9 % (0-4); Lymphocytes % 4.4 %; Mean Corpuscular HGB Conc 33.6 g/dL (31.6-35.5); Mean Corpuscular Hemoglobin 32.4 pg (28.0-33.3); Mean Corpuscular Volume 96.3 fL (83.0-100.0); Mean Platelet Volume 10.4 fL (9.4-12.4); Monocytes # 1.6 K/mcL (0.0-1.3); Monocytes % 7.2 %; Neutrophils # 19.3 K/mcL (1.6-8.9); Platelet Count 210 K/mcL (140-400); Red Blood Count 3.83 M/mcL (3.82-4.97); Red Cell Distribution Width 12.9 % (11.5-14.5); Segmented Neutrophils % 86.1 %; White Blood Count 22.4 K/mcL (4.3-11.1)
[2018-10-30 02:59] LABS: Calcium 9.1 mg/dL (8.6-10.3); Magnesium 1.4 mg/dL (1.6-2.6); Potassium 3.3 mEq/L (3.5-5.1)
[2018-10-30 03:00] LABS: Albumin/Globulin Ratio 1.2 (1.1-2.2); Bilirubin,Direct 0.4 mg/dL (0.0-0.2); Bilirubin,Indirect 1.1 mg/dL (0.0-1.2); Bilirubin,Total 1.5 mg/dL (0.3-1.0); Globulin 3.3 g/dL (2.4-3.5); Total Protein 7.3 g/dL (6.4-8.9)
[2018-10-30] MEDS: *HR* Heparin 5,000 UNIT/ML VIAL SQ SCH ×2 (06:21→18:33)
[2018-10-30] MEDS ORDERED: Potassium Chloride 40 MEQ, Lidocaine 1% 2 ML in D5% in Water 500 ML IVPB ONE (07:17)
[2018-10-30] MEDS ORDERED: 0.9 % Sodium Chloride 500 ML IVC ONE (07:59)
[2018-10-30] MEDS: Furosemide 20 MG/2 ML VIAL IVP SCH (08:12)
[2018-10-30] MEDS: Potassium Chloride Elixir 20 MEQ/15 ML UDC PO SCH ×2 (08:24→12:44)
[2018-10-30] MEDS ORDERED: 0.9 % Sodium Chloride 1,000 ML IVC ONE ×2 (10:47→12:31)
[2018-10-30] MEDS ORDERED: Acetaminophen 325 MG TABLET PO PRN ×2 (12:26→15:21)
[2018-10-30] MEDS ORDERED: 0.9 % Sodium Chloride 1,000 ML ONE (12:38)
[2018-10-30] MEDS ORDERED: Norepinephrine 4 MG in D5% in Water 250 ML IVC SCH ×2 (13:15→15:21)
[2018-10-30] MEDS ORDERED: Ondansetron 4 MG/2 ML VIAL ONE (14:19)
[2018-10-30] MEDS ORDERED: 0.9 % Sodium Chloride 1,000 ML IV.SOLN ONE (14:19)
[2018-10-30] MEDS ORDERED: Naloxone 0.4 MG/ML INJ IVP PRN (15:21)
[2018-10-30] MEDS ORDERED: Dextrose Gel 15 GM/37.5 ML TUBE PO PRN ×2 (15:21)
[2018-10-30] MEDS ORDERED: D5% in Water 1,000 ML IVC PRN (15:21)
[2018-10-30] MEDS ORDERED: Ondansetron 4 MG/2 ML VIAL IVP PRN (15:21)
[2018-10-30] MEDS ORDERED: *HR* Dextrose 50 % in Water (Syg) 50 ML SYRINGE IVP PRN (15:21)
[2018-10-30 17:25] LABS: INR 1.3; Prothrombin Time 14.6 Seconds (9.4-12.1)
[2018-10-30 17:28] LABS: Activated Partial Thrombo Time 27.5 Seconds (26.0-36.0)
[2018-10-30 17:42] LABS: Troponin I 0.04 ng/mL (< 0.04)
[2018-10-30] MEDS: Nystatin Cream 15 GM TUBE TP SCH (19:52)
[2018-10-31] MEDS: Piperacillin/Tazobactam 3.375 GM in 0.9 % Sodium Chloride Mini Bag 100 ML IVPB SCH (00:32)
[2018-10-31] MEDS: Insulin LISPRO 300 UNITS/3 ML VIAL SQ SCH ×5 (00:36→20:39)
[2018-10-31 04:43] LABS: Basophils # 0.1 K/mcL (0.0-0.2); Basophils % 0.5 %; Eosinophils # 0.3 K/mcL (0.0-0.6); Eosinophils % 2.4 %; Hemoglobin 11.2 g/dL (11.5-15.4); Immature Granulocytes % 0.4 % (0-4); Lymphocytes # 1.2 K/mcL (0.6-4.6); Mean Corpuscular Hemoglobin 31.4 pg (28.0-33.3); Mean Platelet Volume 10.4 fL (9.4-12.4); Monocytes # 0.9 K/mcL (0.0-1.3); Monocytes % 6.8 %; Neutrophils # 10.7 K/mcL (1.6-8.9); Platelet Count 166 K/mcL (140-400); Red Blood Count 3.57 M/mcL (3.82-4.97); Red Cell Distribution Width 13.4 % (11.5-14.5); Segmented Neutrophils % 80.9 %; White Blood Count 13.2 K/mcL (4.3-11.1)
[2018-10-31 05:00] LABS: Calcium 7.7 mg/dL (8.6-10.3); Potassium 3.8 mEq/L (3.5-5.1)
[2018-10-31] MEDS: *HR* Heparin 5,000 UNIT/ML VIAL SQ SCH ×2 (06:04→17:07)
[2018-10-31 08:33] LABS: Uric Acid 6.4 mg/dL (2.3-7.6)
[2018-10-31] MEDS: Nystatin Cream 15 GM TUBE TP SCH ×2 (09:02→20:39)
[2018-10-31 10:21] LABS: Sodium, Urine 63.7 mEq/L
[2018-10-31] MEDS ORDERED: Naloxone 0.4 MG/ML INJ IVP PRN (10:46)
[2018-10-31] MEDS ORDERED: D5% in Water 1,000 ML IVC PRN (10:46)
[2018-10-31] MEDS ORDERED: Dextrose Gel 15 GM/37.5 ML TUBE PO PRN ×2 (10:46)
[2018-10-31] MEDS ORDERED: Ondansetron 4 MG/2 ML VIAL IVP PRN (10:46)
[2018-10-31] MEDS ORDERED: *HR* Dextrose 50 % in Water (Syg) 50 ML SYRINGE IVP PRN (10:46)
[2018-10-31] MEDS ORDERED: Insulin LISPRO 300 UNITS/3 ML VIAL SQ SCH (12:00)
[2018-10-31] MEDS: Acetaminophen 325 MG TABLET PO PRN ×2 (12:30→20:38)
[2018-10-31] MEDS ORDERED: Cefepime HCl 2,000 MG in 0.9 % Sodium Chloride Mini Bag 100 ML IVPB SCH (18:00)
[2018-11-01 04:00] LABS: Basophils # 0.1 K/mcL (0.0-0.2); Basophils % 0.5 %; Eosinophils # 0.4 K/mcL (0.0-0.6); Eosinophils % 2.6 %; Hematocrit 32.9 % (35.3-44.9); Hemoglobin 10.7 g/dL (11.5-15.4); Immature Granulocytes % 0.6 % (0-4); Lymphocytes % 13.9 %; Mean Corpuscular HGB Conc 32.5 g/dL (31.6-35.5); Mean Corpuscular Hemoglobin 31.8 pg (28.0-33.3); Mean Corpuscular Volume 97.9 fL (83.0-100.0); Mean Platelet Volume 10.8 fL (9.4-12.4); Monocytes # 0.9 K/mcL (0.0-1.3); Monocytes % 6.7 %; Neutrophils # 10.6 K/mcL (1.6-8.9); Platelet Count 180 K/mcL (140-400); Red Blood Count 3.36 M/mcL (3.82-4.97); Red Cell Distribution Width 13.4 % (11.5-14.5); Segmented Neutrophils % 75.7 %; White Blood Count 14.1 K/mcL (4.3-11.1)
[2018-11-01 04:19] LABS: Calcium 7.8 mg/dL (8.6-10.3); Potassium 3.6 mEq/L (3.5-5.1)
[2018-11-01] MEDS: *HR* Heparin 5,000 UNIT/ML VIAL SQ SCH ×2 (05:58→18:02)
[2018-11-01] MEDS ORDERED: Cefepime HCl 2,000 MG in Water for inj. (sterile) 20 ML IVP SCH (07:52)
[2018-11-01] MEDS: Insulin LISPRO 300 UNITS/3 ML VIAL SQ SCH ×4 (08:10→20:51)
[2018-11-01] MEDS: Nystatin Cream 15 GM TUBE TP SCH ×2 (08:54→21:01)
[2018-11-01] MEDS: Acetaminophen 325 MG TABLET PO PRN ×2 (10:42→21:04)
[2018-11-01] MEDS ORDERED: Piperacillin/Tazobactam 3.375 GM in 0.9 % Sodium Chloride Mini Bag 100 ML IVPB SCH (16:00)
[2018-11-01] MEDS: Lactobacillus 1 EACH CAP.SPRINK PO SCH (16:03)
[2018-11-01] MEDS ORDERED: Cefepime HCl 1,000 MG in Water for inj. (sterile) 10 ML IVP SCH (18:00)
[2018-11-01] MEDS: Cefepime HCl 2,000 MG in Water for inj. (sterile) 20 ML IVP SCH (18:13)
[2018-11-01] MEDS: Clindamycin 600 MG/50 ML 600 MG/50 ML IV.SOLN IVPB SCH ×2 (18:16→23:18)
[2018-11-02 05:57] LABS: Basophils # 0.1 K/mcL (0.0-0.2); Basophils % 0.9 %; Eosinophils # 0.4 K/mcL (0.0-0.6); Eosinophils % 3.9 %; Hematocrit 33.9 % (35.3-44.9); Hemoglobin 10.8 g/dL (11.5-15.4); Immature Granulocytes % 0.6 % (0-4); Lymphocytes # 1.9 K/mcL (0.6-4.6); Lymphocytes % 17.3 %; Mean Corpuscular HGB Conc 31.9 g/dL (31.6-35.5); Mean Corpuscular Volume 100.3 fL (83.0-100.0); Mean Platelet Volume 10.1 fL (9.4-12.4); Monocytes # 0.8 K/mcL (0.0-1.3); Neutrophils # 7.7 K/mcL (1.6-8.9); Platelet Count 187 K/mcL (140-400); Red Blood Count 3.38 M/mcL (3.82-4.97); Red Cell Distribution Width 13.5 % (11.5-14.5); Retculocyte # 0.05 M/mcL (0.05-0.10); Reticulocyte % 1.4 % (1.6-2.8); Segmented Neutrophils % 70.3 %
[2018-11-02] MEDS: Cefepime HCl 2,000 MG in Water for inj. (sterile) 20 ML IVP SCH ×2 (06:10→16:41)
[2018-11-02] MEDS: *HR* Heparin 5,000 UNIT/ML VIAL SQ SCH ×2 (06:10→18:23)
[2018-11-02 06:14] LABS: % Iron Saturation 33 % (15-50); BUN/Creatinine Ratio 19 (6-26); Blood Urea Nitrogen 18 mg/dL (8-23); Calcium 8.7 mg/dL (8.6-10.3); Carbon Dioxide 20 mEq/L (23-29); Chloride 112 mEq/L (98-107); Glucose 113 mg/dL (70-105); Iron 63 mcg/dL (50-170); Lactate Dehydrogenase 224 Units/L (140-271); Osmolality,Calculated 295 (280-300); Potassium 3.9 mEq/L (3.5-5.1); Sodium 141 mEq/L (136-145); Transferrin 135 mg/dL (203-362); eGFR For African Americans > 60 (> 60); eGFR For Non-African Americans 56 (> 60)
[2018-11-02 06:41] LABS: Folate 7.9 ng/mL (3.0-16.0)
[2018-11-02] MEDS ORDERED: Aminoglycoside Consult 1 EACH MC ONE (08:04)
[2018-11-02] MEDS: Insulin LISPRO 300 UNITS/3 ML VIAL SQ SCH ×4 (08:20→21:15)
[2018-11-02] MEDS: Lactobacillus 1 EACH CAP.SPRINK PO SCH (08:40)
[2018-11-02] MEDS: Cyanocobalamin (B-12) 1,000 MCG TABLET PO SCH (08:41)
[2018-11-02] MEDS: Clindamycin 600 MG/50 ML 600 MG/50 ML IV.SOLN IVPB SCH ×2 (10:54→16:42)
[2018-11-02] MEDS ORDERED: Water for inj. (sterile) 20 ML IV ONE (16:37)
[2018-11-02] MEDS: Acetaminophen 325 MG TABLET PO PRN (21:15)
[2018-11-02] MEDS: Nystatin POWDER 30 GM BOTTLE TP SCH (21:15)
[2018-11-03 04:22] LABS: Hematocrit 34.1 % (35.3-44.9); Mean Corpuscular HGB Conc 32.3 g/dL (31.6-35.5); Mean Corpuscular Hemoglobin 31.8 pg (28.0-33.3); Mean Corpuscular Volume 98.6 fL (83.0-100.0); Mean Platelet Volume 10.5 fL (9.4-12.4); Platelet Count 202 K/mcL (140-400); Red Blood Count 3.46 M/mcL (3.82-4.97); Red Cell Distribution Width 13.4 % (11.5-14.5)
[2018-11-03 04:48] LABS: Calcium 8.9 mg/dL (8.6-10.3); Potassium 3.7 mEq/L (3.5-5.1)
[2018-11-03] MEDS: *HR* Heparin 5,000 UNIT/ML VIAL SQ SCH ×2 (05:54→17:39)
[2018-11-03] MEDS ORDERED: Aminoglycoside Consult 1 EACH MC ONE (07:45)
[2018-11-03] MEDS: Cyanocobalamin (B-12) 1,000 MCG TABLET PO SCH (08:10)
[2018-11-03] MEDS: Folic Acid 1 MG TABLET PO SCH (08:10)
[2018-11-03] MEDS: Lactobacillus 1 EACH CAP.SPRINK PO SCH (08:10)
[2018-11-03] MEDS: Nystatin POWDER 30 GM BOTTLE TP SCH ×2 (08:20→20:47)
[2018-11-03] MEDS ORDERED: cefTRIAXone 2,000 MG in Water for inj. (sterile) 20 ML IVP SCH (09:00)
[2018-11-03] MEDS: Insulin LISPRO 300 UNITS/3 ML VIAL SQ SCH ×4 (10:17→20:47)
[2018-11-03] MEDS ORDERED: Vancomycin 1 EACH in 0.9 % Sodium Chloride 250 ML IVPB SCH (13:00)
[2018-11-03] MEDS ORDERED: Furosemide 20 MG/2 ML VIAL IVP ONE (14:35)
[2018-11-03] MEDS ORDERED: Cefepime HCl 2,000 MG in Water for inj. (sterile) 20 ML IVP SCH (18:00)
[2018-11-04 04:45] LABS: Basophils # 0.2 K/mcL (0.0-0.2); Basophils % 1.8 %; Eosinophils # 0.6 K/mcL (0.0-0.6); Eosinophils % 6.8 %; Hematocrit 34.5 % (35.3-44.9); Hemoglobin 11.4 g/dL (11.5-15.4); Lymphocytes % 21.1 %; Mean Corpuscular Hemoglobin 31.9 pg (28.0-33.3); Mean Corpuscular Volume 96.6 fL (83.0-100.0); Mean Platelet Volume 10.5 fL (9.4-12.4); Monocytes # 0.8 K/mcL (0.0-1.3); Monocytes % 8.7 %; Neutrophils # 5.3 K/mcL (1.6-8.9); Platelet Count 262 K/mcL (140-400); Red Blood Count 3.57 M/mcL (3.82-4.97); Red Cell Distribution Width 13.2 % (11.5-14.5); Segmented Neutrophils % 56.6 %; White Blood Count 9.4 K/mcL (4.3-11.1)
[2018-11-04 05:04] LABS: BUN/Creatinine Ratio 15 (6-26); Blood Urea Nitrogen 13 mg/dL (8-23); Calcium 9.4 mg/dL (8.6-10.3); Carbon Dioxide 22 mEq/L (23-29); Chloride 108 mEq/L (98-107); Glucose 121 mg/dL (70-105); Osmolality,Calculated 289 (280-300); Potassium 3.3 mEq/L (3.5-5.1); Sodium 139 mEq/L (136-145); eGFR For African Americans > 60 (> 60); eGFR For Non-African Americans > 60 (> 60)
[2018-11-04] MEDS: *HR* Heparin 5,000 UNIT/ML VIAL SQ SCH (05:18)
[2018-11-04 07:58] LABS: Magnesium 1.5 mg/dL (1.6-2.6)
[2018-11-04] MEDS: Acetaminophen 325 MG TABLET PO PRN (08:07)
[2018-11-04] MEDS: Insulin LISPRO 300 UNITS/3 ML VIAL SQ SCH ×2 (08:13→11:33)
[2018-11-04] MEDS ORDERED: Acetaminophen/Aspirin/Caffeine TABLET PO PRN (08:43)
[2018-11-04] MEDS ORDERED: cefTRIAXone 2,000 MG in 0.9 % Sodium Chloride Mini Bag 100 ML IVPB SCH (09:00)
[2018-11-04] MEDS ORDERED: Furosemide 20 MG/2 ML VIAL IVP SCH (09:00)
[2018-11-04] MEDS ORDERED: Magnesium Sulfate 4 GM in 0.9 % Sodium Chloride 100 ML IVPB ONE (09:03)
[2018-11-04] MEDS: Folic Acid 1 MG TABLET PO SCH (09:15)
[2018-11-04] MEDS: Lactobacillus 1 EACH CAP.SPRINK PO SCH (09:16)
[2018-11-04] MEDS: Cyanocobalamin (B-12) 1,000 MCG TABLET PO SCH (09:16)
[2018-11-04] MEDS: Nystatin POWDER 30 GM BOTTLE TP SCH (09:18)
[2018-11-04] MEDS ORDERED: amLODIPine 5 MG TABLET PO SCH (11:30)
[2018-11-04 14:42] VITALS: BP 147/86
[2018-11-06 14:24] LABS: IFE Reflexed IFE Done; Immunoglobulin A 305 mg/dL (68-408); Immunoglobulin G 982 mg/dL (768-1632); Immunoglobulin M 180 mg/dL (35-263)
== END 2018-11-04 15:43 | DRG 871 ==
LOC: EMEROOARM 13:46 → 3ANU 13:46 → SUATTDRO 19:45 → ICNU 10-30 15:03 → 2ANU 10-31 10:45
PROVIDERS: ADMIT Student in an Organized Health Care Education/Training Program; ATTEND Internal Medicine